=== PATIENT | female | born 1945 | race Caucasian/White ===

== ENCOUNTER 2023-01-17 09:00 | Outpatient (CLI) | payer MEDICARE, OTHER, SELFPAY | END 2023-01-17 09:01 | disposition home or self-care (01) | PROVIDERS: PCP Family Medicine; Visit Provider Nurse Practitioner Family | DX: L03.012 Cellulitis of left finger (principal); R79.89 Other specified abnormal findings of blood chemistry | CPT/HCPCS: 84550 ==

== ENCOUNTER 2023-02-20 11:00 | Outpatient (RCR) | payer MEDICARE, OTHER, SELFPAY ==
--- NOTE | 2023-01-27 15:55 | ONC.NURNOTE ---
Dx: Finger Cellulitis
[2023-01-28 10:21] VITALS: BP 178/79; PULSE 80; RESP 18; TEMP 36.4; O2SAT 90
[2023-01-28] MEDS: cefTRIAXone 2 GM in 0.9 % SODIUM CHLORIDE Mini-bag 100 ML IVPB (10:54)
[2023-01-29 11:05] VITALS: BP 114/70; PULSE 70; RESP 16; TEMP 36; O2SAT 98
[2023-01-29] MEDS: cefTRIAXone 2 GM in 0.9 % SODIUM CHLORIDE Mini-bag 100 ML IVPB (11:23)
[2023-01-29 11:54] LABS: Basophils Absolute Auto 0.01 K/uL (0.00-0.30); Basophils Percent Auto 0.2 % (0.0-3.0); Eosinophils Percent Auto 3.8 % (0.0-7.0); Hematocrit 33.5 % (33.0-51.0); Hemoglobin* 10.6 gm/dL (12.0-16.0); Immature Granulocytes Abs Auto 0.01 K/uL (0.00-0.30); Immature Granulocytes Pct Auto 0.2 %; Lymphocytes Absolute Auto 1.76 K/uL (0.90-2.90); Lymphocytes Percent Auto 33.5 % (20-44); Mean Corpuscular HGB Conc 32 gm/dL (32-36); Mean Corpuscular Hemoglobin 29 pg (26-34); Mean Corpuscular Volume 91 fL (80-100); Monocytes Percent Auto 9.3 % (0.0-11.0); Neutrophils Absolute Auto 2.79 K/uL (1.7-7.0); Platelet Count* 298 K/uL (140-440); RDW Coefficient of Variation % 13.5 % (11.5-15.5); Red Blood Count 3.68 m/uL (4.00-5.20); White Blood Count* 5.26 K/uL (4.50-11.00)
[2023-01-29 11:55] LABS: Slide Review Reflex No
[2023-01-29 12:08] LABS: Creatinine* 0.6 mg/dL (0.5-1.5); Estimated Glomerular Filt Rate 93 ml/min
[2023-01-29 12:09] LABS: Alanine Aminotransferase* 37 U/L (4-35); Alkaline Phosphatase* 352 U/L (40-150)
[2023-01-30 11:04] VITALS: BP 133/69; PULSE 72; RESP 16; TEMP 36.8; O2SAT 99
[2023-01-30] MEDS: 0.9 % SODIUM CHLORIDE 250 ml IV (11:09)
[2023-01-30] MEDS: SODIUM CHLORIDE 0.9 % (FLUSH) 10 ML SYRINGE IVF (11:09)
[2023-01-30] MEDS: cefTRIAXone 2 GM in 0.9 % SODIUM CHLORIDE Mini-bag 100 ML IVPB (11:09)
[2023-01-31 11:03] VITALS: BP 138/70; PULSE 70; RESP 14; TEMP 36.8; O2SAT 100
[2023-01-31] MEDS: SODIUM CHLORIDE 0.9 % (FLUSH) 10 ML SYRINGE IVF (11:13)
[2023-01-31] MEDS: cefTRIAXone 2 GM in 0.9 % SODIUM CHLORIDE Mini-bag 100 ML IVPB (11:13)
[2023-01-31] MEDS: 0.9 % SODIUM CHLORIDE 250 ml IV (11:14)
--- NOTE | 2023-01-31 14:20 | PC.NURSE ---
Pleasant and cooperative, alert and oriented patient was given an antibiotic infusion on med-surg. VSS and pt is afebrile. Pt tolerated infusion without difficulty and discharged to home.
[2023-02-01] MEDS: cefTRIAXone 2 GM in 0.9 % SODIUM CHLORIDE Mini-bag 100 ML IVPB (10:53)
[2023-02-01] MEDS: SODIUM CHLORIDE 0.9 % (FLUSH) 10 ML SYRINGE IVF (10:56)
[2023-02-01 11:01] VITALS: BP 122/63; PULSE 69; RESP 20; TEMP 36.7; O2SAT 97
[2023-02-02 10:59] VITALS: BP 117/64; PULSE 66; RESP 17; TEMP 36.7; O2SAT 96
[2023-02-02] MEDS: cefTRIAXone 2 GM in 0.9 % SODIUM CHLORIDE Mini-bag 100 ML IVPB (11:37)
[2023-02-02] MEDS: 0.9 % SODIUM CHLORIDE 250 ml IV (11:37)
[2023-02-02] MEDS: SODIUM CHLORIDE 0.9 % (FLUSH) 10 ML SYRINGE IVF (11:38)
[2023-02-03 10:42] VITALS: BP 118/63; PULSE 67; RESP 17; TEMP 36.3; O2SAT 98
[2023-02-03] MEDS: cefTRIAXone 2 GM in 0.9 % SODIUM CHLORIDE Mini-bag 100 ML IVPB (11:02)
[2023-02-03] MEDS: SODIUM CHLORIDE 0.9 % (FLUSH) 10 ML SYRINGE IVF (11:41)
[2023-02-04 11:30] VITALS: BP 123/66; PULSE 63; RESP 16; TEMP 36.3; O2SAT 95
[2023-02-04] MEDS: cefTRIAXone 2 GM in 0.9 % SODIUM CHLORIDE Mini-bag 100 ML IVPB (11:37)
[2023-02-04] MEDS: SODIUM CHLORIDE 0.9 % (FLUSH) 10 ML SYRINGE IVF (11:37)
[2023-02-05 10:51] VITALS: BP 124/67; PULSE 68; RESP 16; TEMP 36.4; O2SAT 99
[2023-02-05] MEDS: cefTRIAXone 2 GM in 0.9 % SODIUM CHLORIDE Mini-bag 100 ML IVPB (11:18)
[2023-02-05] MEDS: 0.9 % SODIUM CHLORIDE 250 ml IV (11:19)
[2023-02-05] MEDS: SODIUM CHLORIDE 0.9 % (FLUSH) 10 ML SYRINGE IVF ×2 (11:19→12:10)
[2023-02-05 11:44] LABS: Basophils Percent Auto 0.2 % (0.0-3.0); Eosinophils Percent Auto 3.2 % (0.0-7.0); Hematocrit 32.3 % (33.0-51.0); Hemoglobin* 10.1 gm/dL (12.0-16.0); Lymphocytes Percent Auto 33.6 % (20-44); Mean Corpuscular HGB Conc 31 gm/dL (32-36); Mean Corpuscular Hemoglobin 29 pg (26-34); Mean Corpuscular Volume 91 fL (80-100); Monocytes Percent Auto 8.8 % (0.0-11.0); Neutrophils Percent Auto 54.2 % (42.0-72.0); Platelet Count* 322 K/uL (140-440); RDW Coefficient of Variation % 13.7 % (11.5-15.5); Red Blood Count 3.54 m/uL (4.00-5.20); White Blood Count* 4.44 K/uL (4.50-11.00)
[2023-02-05 11:47] LABS: Slide Review Reflex No
[2023-02-05 12:08] LABS: Creatinine* 0.6 mg/dL (0.5-1.5); Est. Creatinine Clearance* 37.85; Estimated Glomerular Filt Rate 93 ml/min
[2023-02-05 12:09] LABS: Alanine Aminotransferase* 25 U/L (4-35); Phosphorus* 4.1 mg/dL (2.5-4.5)
[2023-02-06 10:39] VITALS: BP 133/65; PULSE 72; RESP 18; TEMP 37; O2SAT 97
[2023-02-06] MEDS: cefTRIAXone 2 GM in 0.9 % SODIUM CHLORIDE Mini-bag 100 ML IVPB (10:59)
[2023-02-06] MEDS: 0.9 % SODIUM CHLORIDE 250 ml IV (11:01)
[2023-02-06 11:40] LABS: Alkaline Phosphatase* 216 U/L (40-150)
[2023-02-07] MEDS: cefTRIAXone 2 GM in 0.9 % SODIUM CHLORIDE Mini-bag 100 ML IVPB (10:54)
[2023-02-07] MEDS: SODIUM CHLORIDE 0.9 % (FLUSH) 10 ML SYRINGE IVF ×2 (10:55→12:29)
[2023-02-07] MEDS: 0.9 % SODIUM CHLORIDE 250 ml IV (10:55)
[2023-02-07 11:32] VITALS: BP 131/78; PULSE 77; RESP 18; TEMP 36.9; O2SAT 97
--- NOTE | 2023-02-07 12:28 | PC.NURSE ---
Patient came to med/surg floor for outpatient antibiotic infusion. VSS stable. PICC to right upper arm had positive blood return and flushed without difficulty. Pt tolerated infusion well.
[2023-02-08 11:05] VITALS: BP 140/70; PULSE 68; RESP 18; TEMP 37; O2SAT 99
[2023-02-08] MEDS: SODIUM CHLORIDE 0.9 % (FLUSH) 10 ML SYRINGE IVF ×2 (11:05→11:35)
[2023-02-08] MEDS: 0.9 % SODIUM CHLORIDE 250 ml IV (11:05)
[2023-02-08] MEDS: cefTRIAXone 2 GM in 0.9 % SODIUM CHLORIDE Mini-bag 100 ML IVPB (11:05)
--- NOTE | 2023-02-08 11:36 | PC.NURSE ---
VS WNL. Infusion completed without difficulty. PICC dressing C,D,&I, line flushes without difficulty.
[2023-02-09 08:46] VITALS: BP 147/75; PULSE 62; RESP 16; TEMP 36.2; O2SAT 98
[2023-02-09] MEDS: cefTRIAXone 2 GM in 0.9 % SODIUM CHLORIDE Mini-bag 100 ML IVPB (08:53)
[2023-02-09] MEDS: 0.9 % SODIUM CHLORIDE 250 ml IV (08:54)
[2023-02-09] MEDS: SODIUM CHLORIDE 0.9 % (FLUSH) 10 ML SYRINGE IVF (08:54)
[2023-02-10 08:00] VITALS: BP 149/52; PULSE 75; RESP 16; TEMP 36.3; O2SAT 98
[2023-02-10] MEDS: cefTRIAXone 2 GM in 0.9 % SODIUM CHLORIDE Mini-bag 100 ML IVPB (08:19)
[2023-02-10] MEDS: 0.9 % SODIUM CHLORIDE 250 ml IV (08:23)
[2023-02-10] MEDS: SODIUM CHLORIDE 0.9 % (FLUSH) 10 ML SYRINGE IVF (08:59)
[2023-02-11] MEDS: 0.9 % SODIUM CHLORIDE 250 ml IV (10:51)
[2023-02-11] MEDS: cefTRIAXone 2 GM in 0.9 % SODIUM CHLORIDE Mini-bag 100 ML IVPB (10:51)
[2023-02-11 11:04] VITALS: BP 152/82; PULSE 66; RESP 16; TEMP 36.9; O2SAT 99
[2023-02-12 10:56] VITALS: BP 152/74; PULSE 65; RESP 16; TEMP 36.5; O2SAT 98
[2023-02-12] MEDS: SODIUM CHLORIDE 0.9 % (FLUSH) 10 ML SYRINGE IVF ×2 (11:20→12:00)
[2023-02-12] MEDS: 0.9 % SODIUM CHLORIDE 250 ml IV (11:25)
[2023-02-12] MEDS: cefTRIAXone 2 GM in 0.9 % SODIUM CHLORIDE Mini-bag 100 ML IVPB (11:30)
[2023-02-12 11:34] LABS: Basophils Percent Auto 0.2 % (0.0-3.0); Eosinophils Percent Auto 4.4 % (0.0-7.0); Hematocrit 34.3 % (33.0-51.0); Hemoglobin* 10.8 gm/dL (12.0-16.0); Lymphocytes Percent Auto 35.4 % (20-44); Mean Corpuscular HGB Conc 32 gm/dL (32-36); Mean Corpuscular Hemoglobin 29 pg (26-34); Mean Corpuscular Volume 92 fL (80-100); Platelet Count* 281 K/uL (140-440); RDW Coefficient of Variation % 14.1 % (11.5-15.5); Red Blood Count 3.74 m/uL (4.00-5.20); White Blood Count* 4.13 K/uL (4.50-11.00)
[2023-02-12 11:40] LABS: Slide Review Reflex No
[2023-02-12 11:53] LABS: Alanine Aminotransferase* 23 U/L (4-35); Alkaline Phosphatase* 165 U/L (40-150); Creatinine* 0.5 mg/dL (0.5-1.5); Est. Creatinine Clearance* 37.85; Estimated Glomerular Filt Rate 97 ml/min
[2023-02-13 11:00] VITALS: BP 143/71; PULSE 70; RESP 16; TEMP 36.3; O2SAT 99
[2023-02-13] MEDS: SODIUM CHLORIDE 0.9 % (FLUSH) 10 ML SYRINGE IVF ×2 (11:12→11:50)
[2023-02-13] MEDS: cefTRIAXone 2 GM in 0.9 % SODIUM CHLORIDE Mini-bag 100 ML IVPB (11:12)
[2023-02-13] MEDS: 0.9 % SODIUM CHLORIDE 250 ml IV (11:12)
[2023-02-14] MEDS: cefTRIAXone 2 GM in 0.9 % SODIUM CHLORIDE Mini-bag 100 ML IVPB (10:49)
[2023-02-14 10:50] VITALS: BP 142/73; PULSE 70; RESP 16; TEMP 36.4; O2SAT 98
[2023-02-14] MEDS: 0.9 % SODIUM CHLORIDE 250 ml IV (10:50)
[2023-02-14] MEDS: SODIUM CHLORIDE 0.9 % (FLUSH) 10 ML SYRINGE IVF (10:50)
[2023-02-15 10:45] VITALS: BP 130/74; PULSE 68; RESP 18; TEMP 36.1; O2SAT 98
[2023-02-15] MEDS: cefTRIAXone 2 GM in 0.9 % SODIUM CHLORIDE Mini-bag 100 ML IVPB (10:50)
[2023-02-15] MEDS: SODIUM CHLORIDE 0.9 % (FLUSH) 10 ML SYRINGE IVF (10:51)
[2023-02-15] MEDS: 0.9 % SODIUM CHLORIDE 250 ml IV (10:51)
[2023-02-16] MEDS: cefTRIAXone 2 GM in 0.9 % SODIUM CHLORIDE Mini-bag 100 ML IVPB (13:40)
[2023-02-16] MEDS: 0.9 % SODIUM CHLORIDE 250 ml IV (13:41)
[2023-02-16] MEDS: SODIUM CHLORIDE 0.9 % (FLUSH) 10 ML SYRINGE IVF (13:41)
[2023-02-16 13:56] VITALS: BP 118/59; PULSE 68; RESP 16; TEMP 36.4; O2SAT 98
[2023-02-17 10:49] VITALS: BP 138/70; PULSE 69; RESP 16; TEMP 36.6; O2SAT 99
[2023-02-17] MEDS: SODIUM CHLORIDE 0.9 % (FLUSH) 10 ML SYRINGE IVF (11:04)
[2023-02-17] MEDS: 0.9 % SODIUM CHLORIDE 250 ml IV ×2 (11:04→11:45)
[2023-02-17] MEDS: cefTRIAXone 2 GM in 0.9 % SODIUM CHLORIDE Mini-bag 100 ML IVPB (11:04)
[2023-02-18 11:06] VITALS: BP 164/78; PULSE 67; RESP 16; TEMP 36.1; O2SAT 94
[2023-02-18] MEDS: SODIUM CHLORIDE 0.9 % (FLUSH) 10 ML SYRINGE IVF (11:27)
[2023-02-18] MEDS: 0.9 % SODIUM CHLORIDE 250 ml IV (11:27)
[2023-02-18] MEDS: cefTRIAXone 2 GM in 0.9 % SODIUM CHLORIDE Mini-bag 100 ML IVPB (11:27)
[2023-02-19 08:45] VITALS: BP 144/76; PULSE 68; RESP 18; TEMP 36.5; O2SAT 99
[2023-02-19] MEDS: cefTRIAXone 2 GM in 0.9 % SODIUM CHLORIDE Mini-bag 100 ML IVPB (08:51)
[2023-02-19 09:39] VITALS: BP 142/79; PULSE 63; RESP 18; TEMP 36.4; O2SAT 99
--- NOTE | 2023-02-19 09:42 | PC.NURSE ---
shift note: vss stable. pt afeb. pt tolerated infusion w/o s/e. PICC line intact. drsg c/d/i
[2023-02-20 11:32] LABS: Eosinophils Absolute Auto 0.26 K/uL (0.00-0.50); Eosinophils Percent Auto 5.2 % (0.0-7.0); Hematocrit 35.1 % (33.0-51.0); Hemoglobin* 11.1 gm/dL (12.0-16.0); Lymphocytes Absolute Auto 1.51 K/uL (0.90-2.90); Lymphocytes Percent Auto 30.4 % (20-44); Mean Corpuscular HGB Conc 32 gm/dL (32-36); Mean Corpuscular Hemoglobin 29 pg (26-34); Mean Corpuscular Volume 92 fL (80-100); Monocytes Percent Auto 6.6 % (0.0-11.0); Neutrophils Absolute Auto 2.87 K/uL (1.7-7.0); Neutrophils Percent Auto 57.8 % (42.0-72.0); Platelet Count* 226 K/uL (140-440); RDW Coefficient of Variation % 14.5 % (11.5-15.5); White Blood Count* 4.97 K/uL (4.50-11.00)
[2023-02-20 11:34] LABS: Slide Review Reflex No
[2023-02-20 11:51] LABS: Alanine Aminotransferase* 37 U/L (4-35); Alkaline Phosphatase* 167 U/L (40-150); Creatinine* 0.7 mg/dL (0.5-1.5); Est. Creatinine Clearance* 37.85; Estimated Glomerular Filt Rate 90 ml/min
== END 2023-07-27 23:59 | disposition home or self-care (01) ==
LOC: CCIC 11:00
PROVIDERS: PCP Family Medicine; Referring Provider Family Medicine; Visit Provider Clinical Nurse Specialist
DX: L03.012 Cellulitis of left finger (principal)
CPT/HCPCS: 36415; 36589; 36592; 82565; 84075; 84100; 84460; 85025; 96365; 96374; 96376; 99211; A4221; J0696; J7050

== ENCOUNTER 2023-03-16 16:41 | Emergency (ER) | payer MEDICARE, OTHER, SELFPAY ==
[2023-03-16] VITALS (21 sets, daily range): BP systolic 157–178; BP diastolic 75–115; PULSE 68–85; RESP 14; TEMP 37; O2SAT 90–99; BMI 27.6
--- NOTE | 2023-03-16 17:01 | ED_ITS ---
HPI - General Adult General Time Seen by Provider: 17:01 Date Seen: 03/16/23 Chief complaint: Nausea/Vomiting Stated complaint: fall-hit head 03/15 Time Seen by Provider: 03/16/23 16:51 Source: patient, RN notes reviewed and other (Dr. Whittaker called from [facility] where he did see the patient) Mode of arrival: ambulatory Limitations: no limitations History of Present Illness HPI narrative: This 75-year-old female was referred from [facility] by Dr. Whittaker for ongoing vomiting in the setting of a fall and head injury yesterday. Patient got up at 5:00 a.m. yesterday, when out to check to see if the Thursday paper was there, admits she did not turn the lights on as she thought she would be fine without them. She missed the 2 steps, did fall down. She scraped the back of her right upper shoulder area, hit the back of her right head. She did go to [place], she had a negative head CT, negative chest abdomen pelvis with IV contrast, also had spinal CT imaging which was reportedly negative. Her potassium was mildly low at 3.1 yesterday. She is not on any anticoagulation. She had significant difficulty with control of vomiting yesterday. The vomiting and nausea it did absolutely start after the head injury. They had difficulty getting control of this, did use IV Zofran, IV droperidol, IV Benadryl and Reglan and in the ER at [place] yesterday. It is reported that she seemed to have better symptom relief with Reglan in the ER. She actually was discharge mid afternoon. She was feeling fine until about 2:00 a.m. today, did get out of bed and then felt poorly. She notes that the nausea and vomiting largely comes on with movement. She is still exhibiting and a right posterior headache. Dr. Whittaker thought she perhaps should come back in to have another head CT to rule out a late brain bleed like a subdural. She also has a history of recurrent small-bowel obstructions, she does not feel like this is anything like that. Denies any abdominal pain. She did have some oral Zofran which she took earlier today, did help some but movement really does exacerbate her symptoms. The thought is that she had concussion. Patient has a past medical history of hypertension, GERD, hyperlipidemia and recurrent small-bowel obstruction. 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 Related Data Home Medications Medication Instructions Recorded Confirmed amlodipine 5 mg tablet 5 mg PO DAILY 03/10/22 02/02/23 omeprazole 20 mg capsule,delayed 20 mg PO DAILY 03/10/22 02/02/23 release potassium chloride 20 mEq 20 meq PO DAILY 03/10/22 02/02/23 tablet,extended release(part/cryst) propranolol 120 mg capsule,24 120 mg PO BID 03/10/22 02/02/23 hr,extended release rosuvastatin 40 mg tablet 40 mg PO DAILY 03/10/22 02/02/23 triamterene 37.5 1 cap PO DAILY 03/10/22 02/02/23 mg-hydrochlorothiazide 25 mg capsule Previous Rx's Medication Instructions Recorded metoclopramide HCl 10 mg tablet 10 mg PO Q8-12H PRN nausea and 03/16/23 (Reglan) vomiting #20 tabs Allergies Allergy/AdvReac Type Severity Reaction Status Date / Time lisinopril Allergy Mild Cough Verified 02/17/23 10:56 Review of Systems Status of ROS: Reports: 6 or more systems reviewed and unremarkable except as noted in History and below [facility] Medical History (Updated 03/16/23 @ 19:37 by Nataliia Guevara MD) Small bowel obstruction ?K56.609 - Unspecified intestinal obstruction, unspecified as to partial versus complete obstruction (ICD-10) Hyperlipidemia ?E78.5 - Hyperlipidemia, unspecified (ICD-10) GERD (gastroesophageal reflux disease) ?K21.9 - Gastro-esophageal reflux disease without esophagitis (ICD-10) Hypertension ?I10 - Essential (primary) hypertension (ICD-10) Social History Smoking Status: Never smoker Do you use any of these nicotine containing products: None How often do you have a drink containing alcohol: monthly or less How often do you have six or more drinks on one occasion: Never AUDIT-C Alcohol total score: 1 Non-prescribed substance use: denies use Exam Const: Vital Signs, click to edit/add: Vital Signs - 24 hr 03/16/23 16:48 03/16/23 16:52 03/16/23 16:53 Temperature 98.6 F Pulse Rate 76 78 Pulse Rate [Pulse Oximeter] 79 Respiratory Rate 14 Blood Pressure 157/115 H Blood Pressure [Ri ght Upper Arm] 157/115 H Pulse Oximetry 95 98 97 Oxygen Delivery Me thod Room Air 03/16/23 17:00 03/16/23 17:08 03/16/23 17:15 Temperature Pulse Rate 72 69 Pulse Rate [Pulse Oximeter] Respiratory Rate Blood Pressure Blood Pressure [Ri ght Upper Arm] Pulse Oximetry 98 98 97 Oxygen Delivery Me thod 03/16/23 17:39 03/16/23 17:45 03/16/23 17:50 Temperature Pulse Rate 71 70 70 Pulse Rate [Pulse Oximeter] Respiratory Rate Blood Pressure 172/76 H Blood Pressure [Ri ght Upper Arm] Pulse Oximetry 99 98 98 Oxygen Delivery Me thod 03/16/23 18:01 03/16/23 18:02 03/16/23 18:15 Temperature Pulse Rate 70 70 70 Pulse Rate [Pulse Oximeter] Respiratory Rate Blood Pressure 172/79 H Blood Pressure [Ri ght Upper Arm] Pulse Oximetry 96 93 90 Oxygen Delivery Me thod 03/16/23 18:30 03/16/23 18:31 03/16/23 18:45 Temperature Pulse Rate 85 77 75 Pulse Rate [Pulse Oximeter] Respiratory Rate Blood Pressure 172/85 H Blood Pressure [Ri ght Upper Arm] Pulse Oximetry 97 96 96 Oxygen Delivery Me thod 03/16/23 19:00 Temperature Pulse Rate 70 Pulse Rate [Pulse Oximeter] Respiratory Rate Blood Pressure Blood Pressure [Ri ght Upper Arm] Pulse Oximetry 97 Oxygen Delivery Me thod Patient is a 77-year-old female that is seen in stab 2 bed. She is alert, interactive, no apparent distress, hanging onto an emesis bag. Pupils equal round reactive to light extraocular muscles intact. No drainage from nares or ears. Symmetrical facial function, speech is normal. Her neck is supple, no visible traumatic change, no palpable masses. She has a right occipital hematoma, no open wound. Mild erythema over the scapular area on her right back. Lungs are clear, good air entry, no wheezing or crackles. CV regular rate and rhythm, no murmur, normal S1-S2, no S3 or S4. Abdomen is soft, nondistended, nontender, no organomegaly, no rebound or guarding, bowel sounds sound normal. She has no lower extremity edema. Moving extremities equally, no focal neurologic deficit noted. Documenting provider has reviewed patient's vital signs: yes Course Course ED Course: Given the wonderful pre arrival report by her primary care provider, was able to alert nursing staff. They did place an IV, draw blood. We will initiate IV fluids and Benadryl and Reglan. Was able to review with the patient her EKG changes. She states that no one has told her that she has had an abnormal EKG. She certainly not having chest pain. By her history, the nausea and vomiting started after the fall. We will insure that she has a normal troponin. The nausea and vomiting have been there since yesterday. It did improve with the medication she received in [place] yesterday. She did have some mild impr ovement with oral Zofran at home but with any significant movement, does feel the nausea vomiting. She still has the right occipital headache. She and I discussed that we will certainly use some medication for pain management, can consider some Toradol if her repeat head CT is still showing no evidence of any late brain bleed, kidney functions are good. If we get her nausea under control, can try some acetaminophen. If her troponin is normal, she can follow up the EKG outpatient. There is the possibility that she could be having some ventricular thickening with her hypertension that could explain some of the EKG changes. However, if troponin is elevated, will need to talk to Cardiology. Reevaluation(s) Time of Reevaluation #1: 19:30 Reevaluation #1: Patient was just up to the bathroom, did have more nausea with movement. Did feel like she wanted the wheelchair. Discussed with her that I recommended hospitalization with observation to try to work on a regimen that would help control her symptoms. It appears that this is post concussive vomiting. She really wants to try to go home. We will try a dose of IV Zofran here now, she has further Zofran at home. I will send a prescription for Reglan in for them. We did discuss the EKG findings, her troponin is negative and she is asymptomatic. She will need outpatient follow-up in clinic, ED evaluation if she ever has any chest pain in the interim. She will likely need an echo and possible consideration of stress testing. We did review the negative abdominal imaging for obstruction, she states she really does not feel any of the symptoms outside of the vomiting that go with her abdominal instructions so she is not surprised. Her head CT showing no evidence of any bleed. Vital Signs Vital signs: Initial Vital Signs Temperature 98.6 F 03/16/23 16:48 Temperature Source Temporal Artery Scan 03/16/23 16:48 Pulse Rate 79 03/16/23 16:48 Pulse Rhythm Regular 03/16/23 16:48 Respiratory Rate 14 03/16/23 16:48 Blood Pressure 157/115 H 03/16/23 16:48 Blood Pressure Mean 129 H 03/16/23 16:48 Blood Pressure Position Left Lateral 03/16/23 16:48 Pulse Oximetry 95 03/16/23 16:48 Oxygen Delivery Method Room Air 03/16/23 16:48 Vital Signs Temperature 98.6 F 03/16/23 16:48 Pulse Rate 79 03/16/23 16:48 Respiratory Rate 14 03/16/23 16:48 Blood Pressure 157/115 H 03/16/23 16:48 Pulse Oximetry 95 03/16/23 16:48 Oxygen Delivery Method Room Air 03/16/23 16:48 Temperature 98.6 F 03/16/23 16:48 Pulse Rate 70 03/16/23 19:00 Respiratory Rate 14 03/16/23 16:48 Blood Pressure 172/85 H 03/16/23 18:31 Pulse Oximetry 97 03/16/23 19:00 Oxygen Delivery Method Room Air 03/16/23 16:48 Medications Administered Medications: Discontinued Medications Generic Name Dose Route Start Last Admin Trade Name Freq PRN Reason Stop Dose Admin Diphenhydramine HCl 25 mg 03/16/23 17:16 03/16/23 17:42 Diphenhydramine 50 Mg/Ml Inj IVP 03/16/23 17:17 25 mg ONCE ONE Administration Sodium Chloride 1,000 mls @ 500 mls/hr 03/16/23 17:16 03/16/23 17:40 0.9 % Sodium Chloride 1000 Ml IV 03/16/23 19:15 500 mls/hr .Q2H NINA Administration Metoclopramide HCl 10 mg 03/16/23 17:16 03/16/23 17:42 Metoclopramide Hcl 5 Mg/Ml Inj IVP 03/16/23 17:17 10 mg ONCE ONE Administration Medical Decision Making Lab Data Lab results reviewed: Yes I reviewed the patient's lab results Labs: Lab Results 03/16/23 Range/Units 17:00 WBC 5.09 (4.50-11.00) K/uL RBC 3.99 L (4.00-5.20) m/uL Hgb 11.5 L (12.0-16.0) gm/dL Hct 36.6 (33.0-51.0) % MCV 92 (80-100) fL MCH 29 (26-34) pg MCHC 31 L (32-36) gm/dL RDW Coeff of Jose Miguel 15.5 (11.5-15.5) % Plt Count 258 (140-440) K/uL Neut % (Auto) 61.3 (42.0-72.0) % Lymph % (Auto) 28.1 (20-44) % [place] % (Auto) 8.4 (0.0-11.0) % Eos % (Auto) 1.8 (0.0-7.0) % Baso % (Auto) 0.2 (0.0-3.0) % Neut # (Auto) 3.12 (1.7-7.0) K/uL Lymph # (Auto) 1.43 (0.90-2.90) K/uL [place] # (Auto) 0.40 (0.00-0.90) K/UL Eos # (Auto) 0.09 (0.00-0.50) K/uL Baso # (Auto) 0.01 (0.00-0.30) K/uL Abs Immat Gran (auto) 0.01 (0.00-0.30) K/uL Imm/Tot Granulo (auto) 0.2 % Sodium 136 (135-149) mmol/L Potassium 3.9 (3.6-5.1) mmol/L Chloride 98 (96-114) mmol/L Carbon Dioxide 28 (20-32) mmol/L Anion Gap 10 (7-15) mEq/L BUN 8 (7-30) mg/dL Creatinine 0.4 L (0.5-1.5) mg/dL Estimated Creat Clear 39.59 Estimated GFR 103 ml/min Glucose 109 (60-115) mg/dL Lactate 1.5 (0.5-1.9) mmol/L Calcium 9.7 (8.4-10.6) mg/dL Magnesium 1.8 (1.5-2.6) mg/dL Total Bilirubin 1.2 (0.1-1.5) mg/dL AST 38 H (12-35) U/L ALT 24 (4-35) U/L Alkaline Phosphatase 171 H (40-150) U/L Troponin I 0.02 (0.01-0.04) ng/mL C-Reactive Protein 1.2 H (0.5-1.0) mg/dL Total Protein 8.1 (6.0-8.3) g/dL Albumin 4.9 (3.3-5.0) g/dL Imaging Data CT scan - head: Attestation: I have reviewed the pertinent imaging results. Radiologist's impression: Patient: [facility] Facility:?[facility] Patient ID:?[id number] Site Patient ID:?[id number]. Site :?[id number] Study:?CT Head WITHOUT-03/16/2023 5:54:03 PM Ordering Physician:Med William Final Report: INDICATION: Headache. Trauma. TECHNIQUE: Non-contrast CT of the head is submitted. No comparisons. FINDINGS: The ventricles, sulci and gyri are of normal size, shape and contour. Midline structures are centrally located. No convincing evidence of intra- or extra-axial fluid collections. Mild soft tissue swelling overlying the right lateral calvarium compatible with a scalp hematoma. IMPRESSION: 1. No radiographic evidence of acute intracranial abnormalities. 2. Small scalp hematoma overlying the right lateral calvarium. Dictated by Sandeep Mccurdy MD @ 03/16/2023 6:03:03 PM Please note that all CT scans at this facility use dose modulation, iterative reconstruction, and/or weight-based dosing when appropriate to reduce radiation dose to as low as reasonably achievable. Dictated by: Sandeep Mccurdy MD @ 03/16/2023 18:03:09 (Electronic Signature) Abdominal x-ray: Attestation: I have reviewed the pertinent imaging results. Radiologist's impression: Patient: [facility] Facility:[facility] Patient ID:?[id number] Site Patient ID:?[id number]. Site :?[id number] Study:?XRay Abdomen/Pelvis F/U ABD-03/16/2023 5:40:28 PM Ordering Physician:Med William Final Report: INDICATION: History of small-bowel obstruction. TECHNIQUE: Single-view of the abdomen and pelvis. COMPARISON: February 26, 2021. FINDINGS: Air-fluid level within the stomach. Scattered gas and stool throughout portions of the colon and rectum. Colonic loop interposed between left hemidiaphragm and the stomach as well as the spleen. There is no evidence for small or large bowel obstruction on these images. Postsurgical change right upper quadrant. Granulomatous changes at the left lung base and within the spleen. Marked rotatory lumbar scoliotic curvature predominate convex towards the left within the mid lumbar spine with multilevel degenerative disc disease. IMPRESSION: No plain radiographic evidence for acute small or large bowel obstruction or ileus. Dictated by Marcel Houston MD @ 03/16/2023 6:05:44 PM (Electronic Signature) ECG Data Attestation: I personally reviewed and interpreted this ECG as follows: (Normal sinus rhythm, 72 beats per minute. She does have inferior and lateral ST segment changes, downsloping depression. No voltage criteria for LVH noted but patient does notably have hypertension. T-waves are still upright. QT corrected is 429 milliseconds.) Prior ECG tracings: not available for review Critical Care Time Critical Care Time Critical Care Time: No Discharge Plan Discharge Clinical Impression: Concussion, Vomiting Patient Disposition: Home, Self-Care Condition: Stable Instructions: Concussion (ED) Additional Instructions: You are unfortunately likely vomiting from post concussive symptoms. If you cannot control your symptoms at home after discharge today, do need to consider return and potential hospitalization. Hopefully, with the anti nausea medicines and rest, you will start to improve. Do recommend resting until movement is not inducing any symptoms for you. Recommend Tylenol baseline for pain control or headache, follow bottle directions for dosing. The EKG showing some changes but your troponin was normal and you are otherwise not having any symptoms tonight. Do recommend that you talk to Dr. Whittaker about having an echo done to look at the underlying architecture of the heart. Stress testing could be considered as well. If at any time you do develop any chest pain or symptoms that are concerning of a heart attack, do need to be evaluated emergently. Activity Level: Activity as Tolerated Prescriptions: New metoclopramide HCl [Reglan] 10 mg tablet 10 mg PO Q8-12H PRN (Reason: nausea and vomiting) Qty: 20 0RF No Action rosuvastatin 40 mg tablet 40 mg PO DAILY triamterene-hydrochlorothiazid 37.5-25 mg capsule 1 cap PO DAILY propranolol 120 mg capsule,extended release 24 hr 120 mg PO BID potassium chloride 20 mEq tablet,ER particles/crystals 20 meq PO DAILY amlodipine 5 mg tablet 5 mg PO DAILY omeprazole 20 mg capsule,delayed release(DR/EC) 20 mg PO DAILY Follow Up/Referrals: Vishnu Whittaker MD [Primary Care Provider] - Stand Alone Forms: [email or web address] Info Instructions
--- NOTE | 2023-03-16 17:14 | CRLHL7_ITS ---
For Patients: As a result of the Century Cures Act, medical imaging exams and procedure reports are released immediately into your electronic medical record. You may view this report before your referring provider. If you have questions, please contact your health care provider. INDICATION: Headache. Trauma. TECHNIQUE: Non-contrast CT of the head is submitted. No comparisons. FINDINGS: The ventricles, sulci and gyri are of normal size, shape and contour. Midline structures are centrally located. No convincing evidence of intra- or extra-axial fluid collections. Mild soft tissue swelling overlying the right lateral calvarium compatible with a scalp hematoma. IMPRESSION: 1. No radiographic evidence of acute intracranial abnormalities. 2. Small scalp hematoma overlying the right lateral calvarium. Dictated by Sandeep Mccurdy MD @ 03/16/2023 6:03:03 PM Please note that all CT scans at this facility use dose modulation, iterative reconstruction, and/or weight-based dosing when appropriate to reduce radiation dose to as low as reasonably achievable. Dictated by: Sandeep Mccurdy MD @ 03/16/2023 18:03:09 (Electronically Signed)
--- NOTE | 2023-03-16 17:14 | CRLHL7_ITS ---
For Patients: As a result of the Century Cures Act, medical imaging exams and procedure reports are released immediately into your electronic medical record. You may view this report before your referring provider. If you have questions, please contact your health care provider. INDICATION: History of small-bowel obstruction. TECHNIQUE: Single-view of the abdomen and pelvis. COMPARISON: February 26, 2021. FINDINGS: Air-fluid level within the stomach. Scattered gas and stool throughout portions of the colon and rectum. Colonic loop interposed between left hemidiaphragm and the stomach as well as the spleen. There is no evidence for small or large bowel obstruction on these images. Postsurgical change right upper quadrant. Granulomatous changes at the left lung base and within the spleen. Marked rotatory lumbar scoliotic curvature predominate convex towards the left within the mid lumbar spine with multilevel degenerative disc disease. IMPRESSION: No plain radiographic evidence for acute small or large bowel obstruction or ileus. Dictated by Marcel Houston MD @ 03/16/2023 6:05:44 PM (Electronically Signed)
[2023-03-16 17:29] LABS: Lactate* 1.5 mmol/L (0.5-1.9)
[2023-03-16 17:39] LABS: Basophils Absolute Auto 0.01 K/uL (0.00-0.30); Basophils Percent Auto 0.2 % (0.0-3.0); Eosinophils Absolute Auto 0.09 K/uL (0.00-0.50); Eosinophils Percent Auto 1.8 % (0.0-7.0); Hematocrit 36.6 % (33.0-51.0); Hemoglobin* 11.5 gm/dL (12.0-16.0); Immature Granulocytes Abs Auto 0.01 K/uL (0.00-0.30); Immature Granulocytes Pct Auto 0.2 %; Lymphocytes Absolute Auto 1.43 K/uL (0.90-2.90); Lymphocytes Percent Auto 28.1 % (20-44); Mean Corpuscular HGB Conc 31 gm/dL (32-36); Mean Corpuscular Hemoglobin 29 pg (26-34); Mean Corpuscular Volume 92 fL (80-100); Monocytes Percent Auto 8.4 % (0.0-11.0); Neutrophils Absolute Auto 3.12 K/uL (1.7-7.0); Neutrophils Percent Auto 61.3 % (42.0-72.0); Platelet Count* 258 K/uL (140-440); RDW Coefficient of Variation % 15.5 % (11.5-15.5); Red Blood Count 3.99 m/uL (4.00-5.20); White Blood Count* 5.09 K/uL (4.50-11.00)
[2023-03-16] MEDS: 0.9 % SODIUM CHLORIDE 1000 ml 1,000 ML 500 ML IV (17:40)
[2023-03-16 17:41] LABS: Slide Review Reflex No
[2023-03-16] MEDS: METOCLOPRAMIDE HCL 5 MG/ML INJ 10 MG IVP (17:42)
[2023-03-16] MEDS: diphenhydrAMINE 50 MG/ML inj 25 MG IVP (17:42)
[2023-03-16 17:59] LABS: Albumin* 4.9 g/dL (3.3-5.0); Chloride* 98 mmol/L (96-114); Potassium* 3.9 mmol/L (3.6-5.1); Sodium* 136 mmol/L (135-149)
[2023-03-16 18:01] LABS: Creatinine* 0.4 mg/dL (0.5-1.5); Est. Creatinine Clearance* 39.59; Estimated Glomerular Filt Rate 103 ml/min
[2023-03-16 18:02] LABS: Alkaline Phosphatase* 171 U/L (40-150); Anion Gap 10 mEq/L (7-15); Aspartate Amino Transferase* 38 U/L (12-35); Bilirubin Total* 1.2 mg/dL (0.1-1.5); Blood Urea Nitrogen* 8 mg/dL (7-30); Carbon Dioxide* 28 mmol/L (20-32); Glucose* 109 mg/dL (60-115); Total Protein* 8.1 g/dL (6.0-8.3)
[2023-03-16 18:03] LABS: Alanine Aminotransferase* 24 U/L (4-35); Calcium* 9.7 mg/dL (8.4-10.6); Magnesium* 1.8 mg/dL (1.5-2.6)
[2023-03-16 18:05] LABS: C Reactive Protein* 1.2 mg/dL (0.5-1.0)
[2023-03-16 18:14] LABS: Troponin I* 0.02 ng/mL (0.01-0.04)
[2023-03-16] MEDS: ONDANSETRON 2 MG/ML inj 4 MG IVP (19:37)
== END 2023-03-16 19:57 | disposition home or self-care (01) ==
PROVIDERS: Emergency Provider Family Medicine; PCP Family Medicine
DX: S06.0X0A Concussion without loss of consciousness, initial encounter (principal); R11.10 Vomiting, unspecified; W10.9XXA Fall (on) (from) unspecified stairs and steps, initial encounter
CPT/HCPCS: 36415; 70450; 74019; 80053; 83605; 83735; 84484; 85025; 86140; 94761; 95992; 96374; 96375; 99284; 99285; J1200; J2405; J2765; J7030

== ENCOUNTER 2023-03-25 04:51 | Inpatient (IN) | payer MEDICARE, OTHER, SELFPAY ==
[2023-03-25] VITALS (8 sets, daily range): BP systolic 147–183; BP diastolic 73–104; PULSE 63–71; RESP 16–24; TEMP 36.5–36.8; O2SAT 96–100; BMI 26.6; BMI 27.0
--- NOTE | 2023-03-25 05:28 | CRLHL7_ITS ---
For Patients: As a result of the Century Cures Act, medical imaging exams and procedure reports are released immediately into your electronic medical record. You may view this report before your referring provider. If you have questions, please contact your health care provider. Indication : History of bowel obstruction Technique: Plain-film examination abdomen was performed. Two images were obtained and then a repeat image was obtained after nasogastric tube placement Comparison: May 17, 2022 Findings: Nasogastric tube ends in the stomach. Extensive degenerative changes of the spine and scoliosis. Postsurgical changes in the right upper quadrant no plain film findings of ileus or obstruction. No definite free air Impression: Nasogastric tube ends in the stomach. No plain-film evidence of ileus or obstruction. No definite free air Dictated by Bruno Brooks MD @ 03/25/2023 7:36:45 AM (Electronically Signed)
--- NOTE | 2023-03-25 05:35 | ED_ITS ---
HPI - General Adult General Chief complaint: Nausea/Vomiting Stated complaint: Vomiting, Upper right abdomen pain Time Seen by Provider: 03/25/23 04:56 Source: patient and family Mode of arrival: ambulatory Limitations: no limitations History of Present Illness HPI narrative: 77-year-old female presents to the ED with a 1 hour history of sudden onset of severe nausea vomiting and weakness. Symptoms feel consistent with prior small bowel obstructions. She believes this is her 4th obstruction. No trauma or injury, had been feeling well. 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 Reports pain in the right upper quadrant area, this is typically where she has her transition point. She has required NG tube placement in the past in is very agreeable when I bring this up. Has never required surgical intervention to correct a bowel obstruction. She does have a history of several prior abdominal surgeries including hysterectomy, laparoscopic cholecystectomy and laparoscopic oophorectomies. Last bowel movement was yesterday, normal. No recent blood in her stools. She has had several bouts of emesis and woke up severely nauseated this morning. No hematemesis. No difficulty breathing, no chest pain, no rashes. No fevers or recent other body illness. No recent changes in her medications or other acute complaints today. Past medical history notable for hypertension hyperlipidemia. She also has diet-controlled diabetes. Home meds amlodipine, omeprazole, propranolol, rosuvastatin and Dyazide. Nonsmoker. No recent pertinent travel. Surgical history noted as above, multiple prior abdominal surgeries. ROS notable for the generalized and GI symptoms as above, otherwise denies times 12 systems. Related Data Home Medications Medication Instructions Recorded Confirmed amlodipine 5 mg tablet 5 mg PO DAILY 03/10/22 02/02/23 omeprazole 20 mg capsule,delayed 20 mg PO DAILY 03/10/22 02/02/23 release potassium chloride 20 mEq 20 meq PO DAILY 03/10/22 02/02/23 tablet,extended release(part/cryst) propranolol 120 mg capsule,24 120 mg PO BID 03/10/22 02/02/23 hr,extended release rosuvastatin 40 mg tablet 40 mg PO DAILY 03/10/22 02/02/23 triamterene 37.5 1 cap PO DAILY 03/10/22 02/02/23 mg-hydrochlorothiazide 25 mg capsule Previous Rx's Medication Instructions Recorded metoclopramide HCl 10 mg tablet 10 mg PO Q8-12H PRN nausea and 03/16/23 (Reglan) vomiting #20 tabs Allergies Allergy/AdvReac Type Severity Reaction Status Date / Time lisinopril Allergy Mild Cough Verified 02/17/23 10:56 PFSH PFS Medical History (Updated 03/25/23 @ 07:26 by Indira Jesus MD) Small bowel obstruction ?K56.609 - Unspecified intestinal obstruction, unspecified as to partial versus complete obstruction (ICD-10) Hyperlipidemia ?E78.5 - Hyperlipidemia, unspecified (ICD-10) GERD (gastroesophageal reflux disease) ?K21.9 - Gastro-esophageal reflux disease without esophagitis (ICD-10) Hypertension ?I10 - Essential (primary) hypertension (ICD-10) Social History Smoking Status: Never smoker Do you use any of these nicotine containing products: None How often do you have a drink containing alcohol: monthly or less How often do you have six or more drinks on one occasion: Never AUDIT-C Alcohol total score: 1 Non-prescribed substance use: denies use service: No Exam Const: Vital Signs, click to edit/add: Vital Signs - 24 hr 03/25/23 05:06 Temperature 97.7 F Pulse Rate [Right Pulse Oximeter] 63 Respiratory Rate 24 Blood Pressure [Ri ght Upper Arm] 177/104 H Pulse Oximetry 99 Oxygen Delivery Me thod Room Air Documenting provider has reviewed patient's vital signs: yes Common normals: alert Orientation/consciousness: Yes awake Other: Mild distress due to persistent vomiting but she tries very hard to mask it an act as professionally as possible. Well nourished, well hydrated. Fully alert HENMT: Common normals: normocephalic Head and scalp: normocephalic Face and sinus: normal facial exam Mouth: oral and palatal mucosa normal Throat: posterior oropharynx normal Eye: Common normals: conjunctivae normal General eye: normal appearance of both eyes Conjunctiva: conjunctiva(e) normal Neck & C-Spine: Common normals: full ROM and no lymphadenopathy Resp: Common normals: normal respiratory effort, no use of accessory muscles and clear to auscultation bilaterally Effort & inspection: able to speak in complete sentences Auscultation: clear to auscultation bilaterally Cardio: Common normals: regular rate, regular rhythm, S1 normal heart sound, S2 normal heart sound and no murmurs Rate: regular rate Rhythm: regular rhythm Heart sounds: S1 normal and S2 normal GI: Other: Mildly distended abdomen with hyperactive bowel sounds. Mild tenderness in the right upper quadrant with no rebound tenderness or guarding. Surgical scarring consistent with known history. No organomegaly or mass Neuro: Common normals: moves all extremities and no focal motor deficits Sensorium/orientation: awake and alert Speech: speech normal Psych: Attitude: engaged Mood and affect: euthymic mood Insight: insight good Judgement: judgment good Skin: Common normals: no rashes or lesions noted General skin exam: no rashes or lesions noted Course Course ED Course: Abdominal pain with sudden onset vomiting in the setting of prior very similar small bowel obstructions. No injury or trauma or blood to suggest alternative pathology. Counseled patient based on physical exam findings that this is likely another small-bowel obstruction, she is in agreement. We will place an IV, obtain typical labs to look for alternative etiologies, electrolyte abnormalities, dehydration, etc.. Will give 0.5 mg of Dilaudid, 4 mg of Zofran and 1 L normal saline. Will place NG tube. Discussed with patient that I do not think we need to do a CT scan unless she is failing to respond to appropriate treatment. She was agreeable to this. Await labs and if these suggest alternative pathology, will reconsider. Will perform abdominal x-ray following placement of NG tube. Anticipate hospitalization. Reevaluation(s) Reevaluation #1: Imaging evaluated, NG tube appears in proper placement. There is really only 1 loop of small bowel that seems dilated, not certainly not a severe small-bowel obstruction. She is having some clinical improvement after the placement of the NG tube. I recommended observation, if the NG output slows down consideration of removal. If symptoms persist, would recommend proceeding with CT scan. I spoke with Dr. Kim. He is considering surgical consult and proceeding with CT, he says that he will evaluate the patient and decide if necessary. Accepted for admission. Vital Signs Vital signs: Initial Vital Signs Temperature 97.7 F 03/25/23 05:06 Temperature Source Temporal Artery Scan 03/25/23 05:06 Pulse Rate 63 03/25/23 05:06 Respiratory Rate 24 03/25/23 05:06 Blood Pressure 177/104 H 03/25/23 05:06 Blood Pressure Mean 128 H 03/25/23 05:06 Blood Pressure Position Semi-Fowlers 03/25/23 05:06 Pulse Oximetry 99 03/25/23 05:06 Oxygen Delivery Method Room Air 03/25/23 05:06 Vital Signs Temperature 97.7 F 03/25/23 05:06 Pulse Rate 63 03/25/23 05:06 Respiratory Rate 24 03/25/23 05:06 Blood Pressure 177/104 H 03/25/23 05:06 Pulse Oximetry 99 03/25/23 05:06 Oxygen Delivery Method Room Air 03/25/23 05:06 Temperature 97.7 F 03/25/23 05:06 Pulse Rate 63 03/25/23 05:06 Respiratory Rate 24 03/25/23 05:06 Blood Pressure 177/104 H 03/25/23 05:06 Pulse Oximetry 99 03/25/23 05:06 Oxygen Delivery Method Room Air 03/25/23 05:06 Medications Administered Medications: Discontinued Medications Generic Name Dose Route Start Last Admin Trade Name Freq PRN Reason Stop Dose Admin Hydromorphone HCl 0.5 mg 03/25/23 05:28 03/25/23 05:47 Hydromorphone 0.5 Mg/0.5 Ml Inj IVP 03/25/23 05:29 0.5 mg ONCE ONE Administration Sodium Chloride 1,000 mls @ 1,000 mls/hr 03/25/23 05:28 03/25/23 07:26 0.9 % Sodium Chloride 1000 Ml IV 03/25/23 06:27 Infused .Q1H NINA Infusion Ondansetron HCl 4 mg 03/25/23 05:28 03/25/23 05:47 Ondansetron 2 Mg/Ml Inj IVP 03/25/23 05:29 4 mg ONCE ONE Administration Medical Decision Making Lab Data Lab results reviewed: Yes I reviewed the patient's lab results Lab results narrative: Lab findings initially reassuring. No obvious significant leukocytosis or markedly elevated lactate. Borderline low potassium. Labs: Lab Results 03/25/23 Range/Units 05:13 WBC 8.72 (4.50-11.00) K/uL RBC 4.24 (4.00-5.20) m/uL Hgb 12.3 (12.0-16.0) gm/dL Hct 38.7 (33.0-51.0) % MCV 91 (80-100) fL MCH 29 (26-34) pg MCHC 32 (32-36) gm/dL RDW Coeff of Jose Miguel 14.6 (11.5-15.5) % Plt Count 340 (140-440) K/uL Neut % (Auto) 78.9 H (42.0-72.0) % Lymph % (Auto) 12.2 L (20-44) % [place] % (Auto) 6.3 (0.0-11.0) % Eos % (Auto) 2.3 (0.0-7.0) % Baso % (Auto) 0.2 (0.0-3.0) % Neut # (Auto) 6.90 (1.7-7.0) K/uL Lymph # (Auto) 1.10 (0.90-2.90) K/uL [place] # (Auto) 0.50 (0.00-0.90) K/UL Eos # (Auto) 0.20 (0.00-0.50) K/uL Baso # (Auto) 0.02 (0.00-0.30) K/uL Abs Immat Gran (auto) 0.01 (0.00-0.30) K/uL Imm/Tot Granulo (auto) 0.1 % Sodium 135 (135-149) mmol/L Potassium 3.2 L (3.6-5.1) mmol/L Chloride 97 (96-114) mmol/L Carbon Dioxide 23 (20-32) mmol/L Anion Gap 15 (7-15) mEq/L BUN 15 (7-30) mg/dL Creatinine 0.6 (0.5-1.5) mg/dL Estimated Creat Clear 39.59 Estimated GFR 93 ml/min Glucose 163 H (60-115) mg/dL Lactate 1.3 (0.5-1.9) mmol/L Calcium 10.2 (8.4-10.6) mg/dL Total Bilirubin 0.7 (0.1-1.5) mg/dL AST 31 (12-35) U/L ALT 22 (4-35) U/L Alkaline Phosphatase 167 H (40-150) U/L C-Reactive Protein 1.1 H (0.5-1.0) mg/dL Total Protein 8.3 (6.0-8.3) g/dL Albumin 5.0 (3.3-5.0) g/dL Lipase 180 (23-300) U/L Imaging Data Abdominal x-ray: Attestation: I have reviewed the pertinent imaging results. My impression: NG tube in proper placement. There is really only 1 dilated loop of small bowel but is not that dissimilar to her last set of imaging. Her clinical course did follow typical partial small-bowel obstruction at that time. Radiologist's impression: Impression: Nasogastric tube ends in the stomach. No plain-film evidence of ileus or obstruction. No definite free air Discharge Plan Discharge Clinical Impression: SBO (small bowel obstruction) Patient Disposition: Admitted As Observation
[2023-03-25] MEDS: ONDANSETRON 2 MG/ML inj 4 MG IVP ×5 (05:47→22:42)
[2023-03-25] MEDS: 0.9 % SODIUM CHLORIDE 1000 ml 1,000 ML IV (05:47)
[2023-03-25] MEDS: HYDROmorphone 0.5 mg/0.5 ml inj IVP ×3 (05:47→22:43)
[2023-03-25 05:51] LABS: Lactate* 1.3 mmol/L (0.5-1.9)
[2023-03-25 05:54] LABS: Basophils Absolute Auto 0.02 K/uL (0.00-0.30); Basophils Percent Auto 0.2 % (0.0-3.0); Eosinophils Percent Auto 2.3 % (0.0-7.0); Hematocrit 38.7 % (33.0-51.0); Hemoglobin* 12.3 gm/dL (12.0-16.0); Immature Granulocytes Abs Auto 0.01 K/uL (0.00-0.30); Immature Granulocytes Pct Auto 0.1 %; Lymphocytes Percent Auto 12.2 % (20-44); Mean Corpuscular HGB Conc 32 gm/dL (32-36); Mean Corpuscular Hemoglobin 29 pg (26-34); Mean Corpuscular Volume 91 fL (80-100); Monocytes Percent Auto 6.3 % (0.0-11.0); Neutrophils Percent Auto 78.9 % (42.0-72.0); Platelet Count* 340 K/uL (140-440); RDW Coefficient of Variation % 14.6 % (11.5-15.5); Red Blood Count 4.24 m/uL (4.00-5.20); White Blood Count* 8.72 K/uL (4.50-11.00)
[2023-03-25 05:56] LABS: Chloride* 97 mmol/L (96-114)
[2023-03-25 05:57] LABS: Potassium* 3.2 mmol/L (3.6-5.1); Sodium* 135 mmol/L (135-149)
[2023-03-25 05:59] LABS: Creatinine* 0.6 mg/dL (0.5-1.5); Est. Creatinine Clearance* 39.59; Estimated Glomerular Filt Rate 93 ml/min
[2023-03-25 06:00] LABS: Alanine Aminotransferase* 22 U/L (4-35); Alkaline Phosphatase* 167 U/L (40-150); Anion Gap 15 mEq/L (7-15); Aspartate Amino Transferase* 31 U/L (12-35); Bilirubin Total* 0.7 mg/dL (0.1-1.5); Blood Urea Nitrogen* 15 mg/dL (7-30); Calcium* 10.2 mg/dL (8.4-10.6); Carbon Dioxide* 23 mmol/L (20-32); Glucose* 163 mg/dL (60-115); Lipase* 180 U/L (23-300); Total Protein* 8.3 g/dL (6.0-8.3)
[2023-03-25 06:03] LABS: C Reactive Protein* 1.1 mg/dL (0.5-1.0); Slide Review Reflex No
--- NOTE | 2023-03-25 06:26 | ED.NURSE ---
Gastrocult pH reads 5
[2023-03-25] MEDS: LACTATED RINGERS 1000 ML 1,000 ML 125 ML IV ×2 (10:09→17:27)
[2023-03-25] MEDS: AMLODIPINE 5 MG TABLET PO (10:24)
--- NOTE | 2023-03-25 10:30 | REH.PT ---
I checked on pt. She was just admitted to the floor and receiving IV meds. Still feeling nauseous. Per RN, she walked to/from BR w/ gait belt only and did fine. PLOF I ambulation w/o AD. Will evaluate tomorrow.
--- NOTE | 2023-03-25 12:50 | P.IMHP_ITS ---
Hospitalist- H&P: HPI History of Present Illness Date Seen: 03/25/23 Chief complaint: Vomiting, Upper right abdomen pain Narrative: Radha Kelly is a 77 year old female with history of recurrent small-bowel obstructions presents with right upper quadrant abdominal pain and vomiting star ting at 1:30 a.m. this morning. She reports this is characteristic of how she feels when she has a recurrent small-bowel obstruction. Emesis was nonbloody. Yesterday she was feeling fine. She has had at least 4 previous hospitalizations for small-bowel obstruction. These always resolve with conservative management. Usually but not always treated with an NG tube. Has never had surgery for lysis of adhesions. Previous surgeries are laparoscopic cholecystectomy, vaginal hysterectomy and laparoscopic salpingo oophorectomy. Previous abdominal CT scans with these episodes heavy usually but not always shown findings consistent with a mechanical bowel obstruction. Her last episode was about 2.5 years ago. In the emergency department she had an NG tube placed with rapid relief of abdominal pain and vomiting. Recent past medical history is notable for her having an infection of her left index finger. She was hospitalized and managed at [facility]. 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 Ten days ago she fell at home and had at head injury. After that she did have some vomiting head CT scan did not show any intracranial bleeding. She has continued to however to have significant headache, dizziness and feels unbalanced as a result. Likely sequela lie of a concussion Review of Systems Narrative: Review of systems is unremarkable except as noted above [facility] Medical History (Updated 03/25/23 @ 13:10 by Pancho Kim MD) Small bowel obstruction ?K56.609 - Unspecified intestinal obstruction, unspecified as to partial versus complete obstruction (ICD-10) Hyperlipidemia ?E78.5 - Hyperlipidemia, unspecified (ICD-10) GERD (gastroesophageal reflux disease) ?K21.9 - Gastro-esophageal reflux disease without esophagitis (ICD-10) Hypertension ?I10 - Essential (primary) hypertension (ICD-10) Surgical History (Updated 03/25/23 @ 13:03 by Pancho Kim MD) Status post bilateral salpingo-oophorectomy ?Z90.722 - Acquired absence of ovaries, bilateral (ICD-10) Status post vaginal hysterectomy ?Z90.710 - Acquired absence of both cervix and uterus (ICD-10) Status post laparoscopic cholecystectomy ?Z90.49 - Acquired absence of other specified parts of digestive tract (ICD- 10) Family History Mother Colon cancer Breast cancer High blood pressure Stroke Brother Colon cancer High blood pressure Leukemia Father Stroke Social History (Updated 03/25/23 @ 13:06 by Pancho Kim MD) Narrative: She lives with her and [facility]. 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 Occasionally drinks alcohol What is your current living situation?: I presently have a place to live Problems where you live: no known problems Problems where you live details: none In the past 12 months, utilities in danger of being shut off: no In past 12 months, lack of transportation kept you from medical appts, meetings, work, or getting things needed for daily living: no In the past 12 mos, have been you worried that your food would run out before you had money to buy more?: never true In the past 12 mos, the food you bought just didn't last and you didn't have money to buy more?: never true Highest level of school completed/degree received: Bachelor's degree Smoking Status: Never smoker Do you use any of these nicotine containing products: None How often do you have a drink containing alcohol: monthly or less How many standard drinks containing alcohol do you have on a typical day: 1 or 2 How often do you have six or more drinks on one occasion: Never AUDIT-C Alcohol total score: 1 Non-prescribed substance use: denies use Caffeine: Yes (rarely) How often does anyone, including family, friends and others, physically hurt you : never How often does anyone, including family, friends and others, insult or talk down to you: never How often does anyone, including family, friends and others, threaten you with harm: never How often does anyone, including family, friends and others, scream or curse at you: never service: No Meds Home Medications and Allergies Home Medications Medication Instructions Recorded Confirmed Type amlodipine 5 mg tablet 5 mg PO DAILY 03/10/22 03/25/23 History omeprazole 20 mg capsule,delayed 20 mg PO DAILY 03/10/22 03/25/23 History release potassium chloride 20 mEq 20 meq PO DAILY 03/10/22 03/25/23 History tablet,extended release(part/cryst) propranolol 120 mg capsule,24 120 mg PO BID 03/10/22 03/25/23 History hr,extended release rosuvastatin 40 mg tablet 40 mg PO DAILY 03/10/22 03/25/23 History triamterene 37.5 1 cap PO DAILY 03/10/22 03/25/23 History mg-hydrochlorothiazide 25 mg capsule Allergies Allergy/AdvReac Type Severity Reaction Status Date / Time lisinopril Allergy Mild Cough Verified 02/17/23 10:56 Exam Narrative: Exam Narrative: She is alert and appears in no distress. She gives her own history. NG tube is suctioning out nonbloody gastric contents. Respirations are clear to auscultation. Cardiovascular: S1, S2, regular rate and rhythm. Abdomen is soft. Bowel sounds are diminished. She has mild right upper quadrant te nderness. No other tenderness no mass no peritonitis. External genitalia normal. Extremities normal. No edema. Intact peripheral pulses. Const: Vital Signs, click to edit/add: Vital Signs - 24 hr 03/25/23 05:06 03/25/23 07:58 03/25/23 08:00 Temperature 97.7 F 98.3 F Pulse Rate [Right Pulse Oximeter] 63 Pulse Rate [Right Radial] 63 64 Respiratory Rate 24 20 16 Blood Pressure [Le ft Arm] 183/78 H 183/78 H Blood Pressure [Ri ght Upper Arm] 177/104 H Pulse Oximetry 99 100 100 Oxygen Delivery Me thod Room Air Room Air Room Air 03/25/23 10:00 03/25/23 11:42 Temperature 97.8 F Pulse Rate [Right Pulse Oximeter] Pulse Rate [Right Radial] 71 Respiratory Rate 16 16 Blood Pressure [Le ft Arm] 149/73 H Blood Pressure [Ri ght Upper Arm] Pulse Oximetry 100 96 Oxygen Delivery Me thod Room Air Room Air Documenting provider has reviewed patient's vital signs: yes Hospitalist - H&P: Result Labs Labs: Short CBC 03/25/23 Range/Units 05:13 WBC 8.72 (4.50-11.00) K/uL Hgb 12.3 (12.0-16.0) gm/dL Hct 38.7 (33.0-51.0) % Plt Count 340 (140-440) K/uL BMP 03/25/23 05:13 Sodium 135 Potassium 3.2 L Chloride 97 Carbon Dioxide 23 BUN 15 Creatinine 0.6 Glucose 163 H Calcium 10.2 Liver Function 03/25/23 Range/Units 05:13 Total Bilirubin 0.7 (0.1-1.5) mg/dL AST 31 (12-35) U/L ALT 22 (4-35) U/L Alkaline Phosphatase 167 H (40-150) U/L Albumin 5.0 (3.3-5.0) g/dL Assessment and Plan Assessment and plan (1) SBO (small bowel obstruction): Problem comment: Recurrent. Relatively benign exam today. NG suctioning, IV fluids, pain medication, antiemetic, surgical consult, conservative management. Status: Acute (2) Concussion: Problem comment: From head injury 10 days ago. Will have therapy evaluate. Status: Acute (3) Hypertension: Problem comment: Resume beta-keshav. Hold diuretic for now pending return of oral intake Status: Acute Plan Admit to the hospital for management of small bowel obstruction. Anticipate uncomplicated recovery and conservative management strategy. Total time spent today is 70 minutes, 50 minutes in coordination of care discussing with patient, and other providers ongoing evaluation management
--- NOTE | 2023-03-25 15:50 | REH.OT ---
OT: Attempted 2x and patient nauseated, had just vomited in pm, requesting to wait to be seen. Will reschedule to see tomorrow am.
--- NOTE | 2023-03-25 19:34 | PC.NURSE ---
Addendum entered by Carmella Holland RN 03/25/23 20:07: Emesis noted to be mix of clear and yellow in color. NG output noted to be mix of clear and yellow/light brown. Original Note: Shift note [id number]: Pt noted to have three episodes of emesis throughout the shift with PRN Zofran administered along with anti-nausea aromatherapy patch. Abdominal pain has been treated with PRN Dilaudid which was noted to be effective upon followup. Pt has been afebrile throughout the shift and transfers well with SBA using GB. She has been using call light appropriately and has been continent of bladder. Bowel sounds noted to be hypoactive x 4. MD also noted bowel sounds to be diminished. Pt remains NPO with IV LR running at 125 mL/hr. Pt reported having fall at home on 03/15/23 and is noted to have slight bump along with some faded bruising to posterior aspect of R side of head as a result of this. Pt noted to be alert & oriented x [address] NG in place with LIS. Pt has had 725 mL of brown output via NG canister throughout the shift.
[2023-03-25] MEDS: ENOXAPARIN 40 MG/0.4 ML INJ SUBCUT (22:41)
[2023-03-25] MEDS: ROSUVASTATIN CALCIUM 10 MG TABLET 40 MG PO (22:42)
[2023-03-25] MEDS: SODIUM CHLORIDE 0.9 % (FLUSH) 10 ML SYRINGE 5 ML IVF (22:43)
[2023-03-26] VITALS (7 sets, daily range): BP systolic 132–152; BP diastolic 66–72; PULSE 62–72; RESP 16–18; TEMP 36.2–36.8; O2SAT 97–99
[2023-03-26] MEDS: LACTATED RINGERS 1000 ML 1,000 ML 125 ML IV ×2 (00:53→08:50)
--- NOTE | 2023-03-26 06:53 | PC.NURSE ---
Shift note 23-07: Pt has denied pain or nausea, abd is now soft, BS are active, 100cc greenish output via NG to LIS. Lg liquid w/ many formed pieces of stool this am.
[2023-03-26] MEDS: AMLODIPINE 5 MG TABLET PO (09:28)
[2023-03-26] MEDS: SODIUM CHLORIDE 0.9 % (FLUSH) 10 ML SYRINGE 5 ML IVF (09:29)
[2023-03-26] MEDS: ACETAMINOPHEN 325 MG TABLET 650 MG PO (13:29)
--- NOTE | 2023-03-26 15:19 | P.DS_ITS ---
DS: Providers Provider Date Seen: 03/26/23 Date of admission: 03/25/23 09:23 Primary care physician: Vishnu Whittaker MD Admitting Clinician: Pancho Kim MD Attending Physician on discharge: Pancho Kim MD Date of Discharge: 03/26/23 DS: Diagnosis Discharge Diagnosis (1) SBO (small bowel obstruction): Status: Acute Problem details: Recurrent. Resolved with NG suctioning for approximately 24 hours. Having diarrhea stools. NG removed. Advance diet and tolerated this well. (2) Concussion: Status: Acute Problem details: From head injury 10 days ago. Therapy recommends using a walker at home for now for balance DS: Summary Hospital Course Hospital Course: 77-year-old female with history of recurrent small-bowel obstructions admitted to the hospital with onset of abdominal pain and intractable vomiting. She reported this was characteristic of previous episodes of small-bowel obstruction. In the past these have always been managed conservatively. On this admission she had NG tube placed and had relatively quick resolution of her nausea vomiting and abdominal pain. She was treated with IV fluids, antiemetics and pain medications. Overnight she began having liquid stools. Her pain is resolved. NG tube was removed. She was started on clear liquid diet. During the day today she has been eating . On March 15 she had a concussion. She reports still having symptoms including imbalance. Therapy evaluate her and recommend she use a front wheeled walker for this. Status at Discharge Functional status at discharge: uses cane/walker Overall status at discharge: patient is progressing back to baseline Time Spent with Patient Time attestation: Total time spent providing and/or coordinating discharge services: 40 minutes Time spent: Greater than 30 minutes Exam Narrative: Exam Narrative: She is alert and in no distress. Abdomen with bowel sounds active. Abdomen is soft without tenderness or mass. She is observed to walk well with a walker. Const: Vital Signs, click to edit/add: Vital Signs - 24 hr 03/25/23 15:21 03/25/23 19:00 03/26/23 00:30 Temperature 98.3 F 98.2 F 97.2 F L Pulse Rate [Right Radial] 71 69 72 Respiratory Rate 16 16 16 Blood Pressure [Le ft Arm] 155/95 H 147/77 H 144/69 H Pulse Oximetry 99 99 98 Oxygen Delivery Me thod Room Air Room Air Room Air 03/26/23 05:00 03/26/23 07:45 03/26/23 07:51 Temperature 98.2 F 97.8 F Pulse Rate [Right Radial] 66 67 67 Respiratory Rate 18 16 16 Blood Pressure [Le ft Arm] 152/72 H 148/66 H Pulse Oximetry 97 97 Oxygen Delivery Me thod Room Air Room Air 03/26/23 11:16 03/26/23 15:11 Temperature 97.7 F 97.9 F Pulse Rate [Right Radial] 64 62 Respiratory Rate 16 16 Blood Pressure [Le ft Arm] 152/67 H 132/72 Pulse Oximetry 98 99 Oxygen Delivery Me thod Room Air Room Air Documenting provider has reviewed patient's vital signs: yes Discharge Plan Discharge Disposition: Home, Self-Care Date of Admission: 03/25/23 09:23 Attending Provider on Discharge: Pancho Kim Consulting Providers: Sylvia Villaseñor Primary Care Provider: Vishnu Whittaker Condition: Improved Anticipated Discharge Date/Time: 03/26/23 15:17 Discharge Medications: Continued rosuvastatin 40 mg tablet 40 mg PO DAILY triamterene-hydrochlorothiazid 37.5-25 mg capsule 1 cap PO DAILY propranolol 120 mg capsule,extended release 24 hr 120 mg PO BID potassium chloride 20 mEq tablet,ER particles/crystals 20 meq PO DAILY amlodipine 5 mg tablet 5 mg PO DAILY omeprazole 20 mg capsule,delayed release(DR/EC) 20 mg PO DAILY Discontinued metoclopramide HCl [Reglan] 10 mg tablet 10 mg PO Q8-12H PRN (Reason: nausea and vomiting) Qty: 20 0RF Discharge Orders: Discharge Order (Routine); Ordered 03/26/23 Ordered By: Pancho Kim Patient Education: Bowel Obstruction (DC) Additional Instructions: If you get recurrent abdominal pain and vomiting return to the emergency department. Use a walker for ambulation. Talk to your doctor about ongoing therapy evaluation for your concussion. Activity Level: Activity as Tolerated and Use Walker Discharge Diet: Regular Follow Up Appointments: Vishnu Whittaker MD [Primary Care Provider] - Forms: [employer] Medical Info Instructions
--- NOTE | 2023-03-26 16:34 | PC.NURSE ---
Addendum entered by Carmella Holland RN 03/26/23 16:41: Bowel sounds active in all four quadrants prior to discharge. Original Note: Pt discharged at 1628 with transportation provided by . Pt noted to be alert & oriented x 4 and abdominal cramping managed with PRN Tylenol. Pt has had no N/V today and has remained continent of bowel and bladder. Stools have been small though loose in consistency- four BMs noted since 0700. NG tube discontinued this morning per MD order. Pt able to transfer/ambulate in room independently prior to discharge. IV to R forearm removed prior to discharge with catheter noted to be intact. Pt states she will make follow up appointment with PCP Dr. Whittaker.
== END 2023-03-26 16:28 | disposition home or self-care (01) | DRG 390 ==
LOC: ED 07:26 → MEDSURG 07:43
PROVIDERS: Admitting Provider Family Medicine; Emergency Provider Family Medicine; PCP Family Medicine; Visit Provider Family Medicine
DX: K56.609 Unspecified intestinal obstruction, unspecified as to partial versus complete obstruction (principal); I10 Essential (primary) hypertension; S06.0XAD Concussion with loss of consciousness status unknown, subsequent encounter
CPT/HCPCS: 36415; 43752; 74018; 80053; 83605; 83690; 85025; 86140; 97116; 97161; 97165; 99284; A9270; J1170; J1650; J2405; J7030; J7120

== ENCOUNTER 2024-01-15 06:53 | Outpatient (CLI) | payer MEDICARE, OTHER, SELFPAY ==
--- OUTSIDE RECORDS SUMMARY | 2024-01-15 06:55 | XMS_ITS | Clinical Summary ---
Author Organization [facility] Address [address] [place] [address] Care Team Providers Care Test Borer Helper Name Role Phone Elsewhere, Pcp Primary Care Provider Unavailabl e Source Comments Patient records contain information from all sites at [facility]. For routine questions regarding patient records, call [phone] during business hours, M-F 8:00 AM - 5:00 PM Central Time. Record requests for emergency care only can be directed to [phone] at any time.[facility] Allergies Active Allergy Reactions Criticality Noted Date Comments Lisinopril Cough 11/24/2006 Medications * This document contains information received from the source organization and may not represent a complete record from that organization. amLODIPine (NORVASC) 5 mg tablet Take 5 mg by mouth daily. 8 Active cholecalciferol (VITAMIN D3) 2,000 Unit capsule Take 2,000 Units by mouth daily. 3 Active omeprazole (PriLOSEC) [address] capsule Take 20 mg by mouth daily. 8 Active ondansetron ODT (ZOFRAN-ODT) 4 mg disintegrating tablet Dissolve 4 mg in the mouth every 8 (eight) hours as needed for vomiting or nausea. 8 Active potassium chloride (KLOR-CON M/KDUR) 20 mEq ER tablet Take 20 mEq by mouth daily. 8 Active propranolol (INDERAL LA) 120 mg 24 hr capsule Take 120 mg by mouth 2 (two) times a day. 8 Active rosuvastatin (CRESTOR) 40 mg tablet Take 40 mg by mouth daily. 8 Active triamterene-hydroCH LOROthiazide (DYAZIDE) 37.5-25 mg per capsule Take 1 capsule by mouth daily. 8 Active sennosides-docusate sodium (SENOKOT-S) 8.6-50 mg per tablet Take 1 tablet by mouth 2 (two) times a day. 6 tablet 3 Active metoclopramide (REGLAN) 10 mg tablet Take 10 mg by mouth 3 (three) times a day before meals. 3 Active sennosides (SENOKOT) 8.6 mg tablet Take 8.6 mg by mouth daily. Active Active Problems Problem Noted Date Diagnosed Date Amputation Finger Status Post Left 02/09/2023 Cellulitis Finger Left 01/20/2023 Cellulitis 01/19/2023 Encounters Date Type Department Care Team Description 11/09/2023 9:00 AM CDT Comprehensive Visit Department of Physical Medicine and Rehabilitation in [place], [place] [address] [place] [address] Janeth Smith P.A.-C., M.S. Indira Lindsay M.S., O.T. Amputation Finger Status Post Left (Primary Dx) 11/09/2023 8:00 AM CDT Office Visit Department of Orthopedic Surgery in [place], [place] [address] [place] [address] Janeth Smith P.A.-C., M.S. Amputation Finger Status Post Left (Primary Dx) from Last 3 Months Family History Medical History Relation Name Comments Arthritis Father Praful Stroke Father Praful Arthritis Mother Roxanne Breast cancer Mother Roxanne Colon cancer Mother Roxanne Hypertension Mother Roxanne Migraines Mother Roxanne Stroke Mother Roxanne Relation Name Status Comments Father Praful Mother Roxanne Social History Tobacco Use Types Packs/Day Years Used Date Smoking Tobacco: Never Passive Smoke Exposure: Never Smokeless Tobacco: Never Tobacco Cessation:Counseling Given: Not Answered Alcohol Use Standard Drinks/Week Comments Yes 2 (1 standard drink = 0.6 oz pur e alcohol) Humiliation, Afraid, Rape, and Kick questionnair e Answer Date Recorded Within the last year, have y ou been afraid of your partner or ex-partner? No 01/07/2022 Within the last year, have y ou been humiliated or emotionally abused in other ways by your partner or ex-partner? No Within the last year, have y ou been kicked, hit, slapped, or otherwise physically hurt by your partner or ex-partner? No 01/07/2022 Within the last year, have y ou been raped or forced to have any kind of sexual activity by your partner or ex-partner? No 01/07/2022 Social Connection and Isolat ion Panel [NHANES] Answer Date Recorded In a typical week, how many times do you talk on the phone with family, friends, or neighbors? More than three times a week 01/07/2022 How often do you get togethe r with friends or relatives? More than three times a week 01/07/2022 How often do you attend [facility] or hindu services? More than 4 times per year 01/07/2022 Do you belong to any clubs o r organizations such as gnosticist groups, unions, fraternal or athletic groups, or school groups? Yes 01/07/2022 How often do you attend meet ings of the clubs or organizations you belong to? 1 to 4 times per year 01/07/2022 Are you , , di vorced, , never , or living with a partner? 01/07/2022 AUDIT-C Answer Date Recorded Q1: How often do you have a drink containing alc ohol? 2-3 times a week 01/07/2022 Q2: How many drinks containi ng alcohol do you have on a typical day when you are drinking? 1 or 2 01/07/2022 Q3: How often do you have si x or more drinks on one occasion? Never 01/07/2022 Overall Financial Resource Strain (CARDIA) Answe r Date Recorded How hard is it for you to pa y for the very basics like food, housing, medical care, and heating? Not hard at all 02/05/2023 [facility] [place] [facility] Occupat ional [facility] - Occupational Stress Questionnaire Answer Date Recorded Do you feel stress - tense, restless, nervous, or anxious, or unable to sleep at night because your mind is troubled all the time - these days? Not at all 01/07/2022 Exercise Vital Sign Answer Date Recorde d On average, how many days pe r week do you engage in moderate to strenuous exercise (like a brisk walk)? 3 days 02/02/2023 On average, how many minutes do you engage in exercise at this level? 20 min 02/02/2023 Hunger Vital Sign Answer Date Recorded Within the past 12 months, y ou worried that your food would run out before you got the money to buy more. Never true 02/06/20 23 Within the past 12 months, t he food you bought just didn't last and you didn't have money to get more. Never true 02/05/2023 PRAPARE - Transportation Answer Date Re corded In the past 12 months, has l ack of transportation kept you from medical appointments or from getting medications? No 11/2022 In the past 12 months, has l ack of transportation kept you from meetings, work, or from getting things needed for daily living? No 02/05/2023 Nutrition Answer Date Recorded On average, how many serving s of fruits and vegetables do you eat per day (serving size is equal to 1 cup or approximately the size of a tennis ball)? 3-5 02/02/2023 Dental Answer Date Recorded Dental: Regular Dentist Yes 01/08/20 Employment Answer Date Recorded Employment status Retired 02/02/2023 Housing Stability Answer Date Recorded What is your living situation today? I have a [facility] place to live 02/05/2023 Education Answer Date Recorded What is the highest level of school you have completed or the highest degree you have received? Associate degree: occupational, technical, or vocational program 01/07/2022 Comments No Sex and Gender Information Value Date Recorded Sex Assigned at Female 01/07/2022 9:56 AM CDT Legal Sex Female 9:22 AM TELEPHONE ANSWERING SERVICE OPERATOR Gender Identity Female 01/07/2022 9:56 AM CDT Sexual Orientation Straight 01/07/2022 9: 56 AM CDT Last Filed Vital Signs Vital Sign Reading Time Taken Comments Blood Pressure 144/72 03/15/2023 1:10 PM TELEPHONE ANSWERING SERVICE OPERATOR Pulse 85 03/15/2023 1:10 PM TELEPHONE ANSWERING SERVICE OPERATOR Temperature 36.5 ??C (97.7 ??F) 03/15/2023 7:23 AM CS T Respiratory Rate 12 03/15/2023 1:10 PM TELEPHONE ANSWERING SERVICE OPERATOR Oxygen Saturation 99% 03/15/2023 1:10 PM TELEPHONE ANSWERING SERVICE OPERATOR Inhaled Oxygen Concentration - - Weight 70 kg (154 lb 5.2 oz) 03/15/2023 7:17 AM TELEPHONE ANSWERING SERVICE OPERATOR Height 160 cm (5' 3) 01/19/2023 6:57 PM CDT Body Mass Index 27.34 01/19/2023 6:57 PM CDT Plan of Treatment Health Maintenance Due Date Last Done Comments Hepatitis C Screening 1945 Office Visit for Blood Press ure Check / Re-check 04/12/2022 01/10/2022 Depression Screening (Annual PHQ-2) 03/30/2023 Fall Risk Screen (Annual) 03/30/2023 COVID-19 Vaccine (2023-2 5 season) 2023 04/20/2023, 12/25/2021, 07/15/2021, Additional history exists Influenza Vaccine (#1) 2023 , 12/11/2021, 01/09/2021, Additional history exists DTaP,Tdap,and Td Vaccines (3 - Td or Tdap) 07/22/2032 07/22/2022, 12/23/2011 Zoster Vaccines Completed 03/24/2019, 09/28, 03/04/2007 Pneumococcal vaccine (65+ years) Completed 04/28/2022, 02/01/2014, 12/23/2011 RSV vaccine - (32-3 6 weeks) or 60+ years Completed 03/11/2023 Mammogram Discontinued 04/10/2023, 03/30, 04/08/2022, Additional history exists Insurance MEDICARE [employer] [facility] [place] [id number] Care Teams Test Borer Helper Relationship Specialty Start Date End Date Elsewhere, Pcp PCP - General Internal Medicine 01/19/23
--- OUTSIDE RECORDS SUMMARY | 2024-01-15 06:55 | XMS_ITS | Clinical Summary ---
Author Organization [facility] Address [place], [place] [address] Care Team Providers Care Motion Picture Scene Builder Name Role Phone Vishnu Whittaker MD Primary Care Provider Se Medley Unavailable [phone] Marcos Stevens MD Unavailable Allergies Active Allergy Reactions Criticality Noted Date Comments Lisinopril Cough 11/24/2006 Medications Medication Sig Dispensed Refills Start Date End Date Status calcium carbonate-vitamin D3, 600 mg-400 unit, (CALCIUM WITH VITAMIN D) tablet Calcium 600mg/Vit D 800 IU - two tablets orally once daily 03/03/2011 Active cholecalciferol (VITAMIN D-3) 2,000 unit capsule Take 1 capsule by mouth once daily. 0 03/18/2013 Active sennosides (SENNA) 8.6 mg tablet Daily as needed Active ondansetron (Zofran ODT) 4 mg disintegrating tabletIndications:Na usea Place 1 Tablet (4 mg) on the tongue every 8 hours if needed for Nausea/Vomiting. 30 Tablet 2 04/28/2022 Active amLODIPine (NORVASC) 5 mg tabletIndications:Es sential hypertension Take 1 Tablet (5 mg) by mouth once daily. 90 Tablet 3 04/30/2023 Active potassium chloride (KLOR-CON M20) 20 mEq extended-release tablet (part/cryst)Indicati ons:Essential hypertension Take 1 Tablet (20 mEq) by mouth once daily with a meal. 90 Tablet 3 04/30/2023 Active propranolol ER (INDERAL LA) 120 mg Cs24 Sustained-Release capsuleIndications:O ther migraine without status migrainosus, not intractable TAKE ONE CAPSULE BY MOUTH TWICE A DAY 180 Capsule 3 04/30/2023 Active rosuvastatin (Crestor) 40 mg tabletIndications:Mi xed hyperlipidemia Take 1 Tablet (40 mg) by mouth at bedtime. 90 Tablet 3 04/30/2023 Active triamterene-hydrochl orothiazide, 37.5-25 mg, (DYAZIDE) 37.5-25 mg capsuleIndications:E ssential hypertension Take 1 Capsule by mouth every morning. 90 Capsule 3 04/30/2023 Active polyethylene glycol-electrolyte (GOLYTELY) 236-22.74-6.74 -5.86 gram suspensionIndication s:Encounter for screening colonoscopy Drink 2 liters (half the bottle) the day before colonoscopy and 2 liters (remaining prep) 6 hours prior to colonoscopy appointment. 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 Overview (12/08/2014): EGD 12/2013 mild stricture 11mm Osteoarthritis of lumbar spine 10/30/2010 Family history of breast cancer 10/30/2010 Family history of colon cancer 10/30/2010 Overview (07/11/2013): Colonoscopy 06/2013 hyperplastic polyp repeat in 5 years Migraine, unspecified, witho ut mention of intractable migraine without mention of status migrainosus 05/19/2006 Osteoarthritis, knee 05/19/2006 Overview (10/30/2010): bilateral s/p B TKA Unspecified essential hypertension 05/19/2006 Impaired fasting glucose Normocytic anemia Overview (12/08/2014): c-scope neg 06/2013, egd mild duod stricture 12/2013. Nl smear 07/2014 Resolved Problems Problem Noted Date Diagnosed Date Resolved Date Hyperlipidemia 01/30/2015 07/10/2015 Partial small bowel obstruction 07/28/2014 12/29/2023 Overview (12/22/2022): 07/5014; mid sbo, resolved spont. Anemia 05/05/2014 12/08/2014 Lipoma of other skin and subcutaneous tissue 1 12/08/2014 Pain in joint, lower leg 02/27/201005/2010 Osteoarthrosis, unspecified whether generalized or localized, unspecified site 05/19/2006 10/30/2010 Knee joint replacement by other means 05/19/2006 02/27/2010 Overview (05/19/2006): left Unspecified essential hypertension 05/19/2006 10/30/2010 Acute venous embolism and th rombosis of unspecified deep vessels of lower extremity 05/19/2006 02/27/2010 Overview (05/19/2006): (l) L/e Hyperlipidemia LDL goal <130 12/08/2014 Overview (03/17/2008): ldl goal <130 Benign neoplasm of breast Overview (10/30/2010): cysts DVT, lower extremity 021 Overview (12/08/2014): left calf, occurred 4 days after knee surgery 1997 Hyperlipidemia 04/18/2021 Encounters Date Type Department Care Team Description 01/10/2024 Travel 12/29/2023 8:00 AM CDT Preop Visit [facility] [address] [place] [address] Vishnu Whittaker MD Preoperative Exam (DOS: 01/15/2024, colonoscopy, Dr. Klein, [facility]) 12/29/2023 Travel from Last 3 Months Immunizations Name Administration Dates Next Due AMB Influenza, IIV3 (Age >=3 years)(Flu Clinic Only) 12/17/2011,01/06/2011,01/16/2010,01/01,01/19/2008 AMB Influenza, IIV4 PF (=>6 mos Flulaval,Fluzone Fluarix)(Flu Clinic Only) 12/20/2019,01/03/2016 COVID-19 VACCINE SPIKEVAX (M ODERNA 50MCG/0.5ML) 12YO+ PFS 04/20/2023 COVID-19 vaccine (Pfizer-Bio NTech 30mcg/0.3mL) 12YO+ BIVALENT PF, MDV 12/25/2021 COVID-19 vaccine (Pfizer-Bio NTech 30mcg/0.3mL) 12YO+ LANE-SUCROSE PF, MDV 07/15/2021 Influenza A (H1N1), Inactiva kathrine (Age >=3 Years) 03/28/2009 Influenza, High-dose Inactivated 12/12/2014,10/29 Influenza, IIV3 (Age 6-35 mos) 01/06/2011 Influenza, IIV3 (Age >=3 years) 12/15/2012 Influenza, Inactivated AIIV4 (Age 65+ Years) Preserv Free 03/11/2023,12/11/2021,01/09/2021 Influenza, Inactivated IIV3 (Age 65+ Years) Preserv Free 12/10/2023,01/04/2019,12/08/2017,12/08 Pneumococcal Conj 20-valent (Prevnar 20) 04/28/2022 Pneumococcal Poly,23-Valent (Pneumovax) 12/23/2011 Pneumococcal conj 13-Valent (Prevnar 13) 02/01/2014 RSV, Recombinant ADJ Reconst ituted (Arexvy 120MCG/0.5mL) 03/11/2023 Td (Age >=7 Years) 07/14/2003 Tdap 07/22/2022,12/23/2011 Zoster (Shingrix-RZV, recombinant) 03/24/2019, Zoster (Zostavax-ZVL, live) 03/04/2007 Family History Medical History Relation Name Comments Cancer Brother 2 Julian leukemia Cancer-colon Brother 2 Julian Hypertension Brother 2 Julian Other Daughter 2 migraines Other Father emphysema Stroke Father Cancer-breast Maternal Aunt Cancer-breast Maternal Grandmother Cancer-breast Mother Cancer-colon Mother Hypertension Mother Other Mother migraine Stroke Mother Heart Disease Neg. 1 Diabetes Neg. 2 Anesthesia Problem Neg. 3 Cancer-breast Other 2 cousin Cancer-breast Other 3 cousin Good Health Son 2 Relation Name Status Comments Brother 1 Alive Brother 2 Julian Daughter 1 sahra Alive Daughter 2 Father (Age 89) pulmonary edema, emphysema Maternal Aunt Maternal Grandmother Mother (Age 78) colon canc er, stroke Neg. 1 Neg. 2 Neg. 3 Other 1 andres Alive spouse Other 2 Other 3 Son 1 ronnie Alive Son 2 Social History Tobacco Use Types Packs/Day Years Used Date Smoking Tobacco: Never Smokeless Tobacco: Never Tobacco Cessation:Counseling Given: No Alcohol Use Standard Drinks/Week Comments Yes 0 (1 standard drink = 0.6 oz pure alcohol) 2 beers in a week, a glass of wine every 3-4 months PHQ-2 Answer Date Recorded PHQ-2 TOTAL SCORE 0 04/30/2023 Social Connections Answer Date Recorded Frequency of Communication with Friends and Fami ly 0 07/02/2023 Financial Resource Strain Answer Date R ecorded Difficulty of Paying Living Expenses 3 07/02/2023 Difficulty of Paying Living Expenses Not on file 07/02/2023 Food Insecurity Answer Date Recorded Worried About Running Out of Food in the Last Ye ar 1 07/02/2023 Transportation Needs Answer Date Record ed Lack of Transportation (Medical) 1 07/02/2023 Housing Stability Answer Date Recorded Unable to Pay for Housing in the Last Year 1 07/02/2023 Sex and Gender Information Value Date Recorded Sex Assigned at Female 03/10/2020 9:02 AM DIE MAKER Gender Identity Female 03/10/2020 9:02 AM DIE MAKER Sexual Orientation Straight 03/10/2020 9: 02 AM DIE MAKER Obstetrics History Para Term AB IAB SAB Ectopic Multiple Livin g Live Births 2 2 2 Date Outcome GA Total Labor Labor/2nd/3rd Weight Sex Type Anes PTL Dagmar A1 A5 Name Clin Term Term Last Filed Vital Signs Vital Sign Reading Time Taken Comments Blood Pressure 154/82 12/29/2023 7:57 AM CDT Pulse 68 12/29/2023 7:57 AM CDT Temperature 36.9 ??C (98.4 ??F) 01/02/2020 7:59 AM CD T Respiratory Rate 20 12/20/2019 12:5 0 PM CDT Oxygen Saturation 99% 12/29/2023 7:57 AM CDT Inhaled Oxygen Concentration - - Weight 69.8 kg (153 lb 12.8 oz) 12/29/2023 7:57 AM CDT Height 153.4 cm (5' 0.39) 12/29/2023 7:57 AM CD T Body Mass Index 29.65 12/29/2023 7:57 AM CDT Plan of Treatment Upcoming Encounters Date Type Department Care Team (Late st Contact Info) Description 01/15/2024 7:15 AM CDT Office Visit [facility] [address] [place] [address] Kenny Klein MD [address] [place] [address] Health Maintenance Due Date Last Done Comments COVID-19 vaccine series ( season) 2023 09/28/2023, 04/20/2023, 12/25/2021, Additional history exists Depression screening for age 12+ 04/30/2024 04/30/2023, 04/30/2023, 04/28/2022, Additional history exists Medicare Wellness for age 65+ 04/30/2024, 04/28/2022, 04/18/2021, Additional history exists BMI (ht and wt on same day) for age 18+ 12/28/2024 12/29/2023, 04/30/2023, 04/28/2022, Additional history exists Tetanus booster 07/22/2032 07/22/2022, 11/29, 07/14/2003 Hepatitis C screening for ag e 18-79 Completed 04/07/2017 Zoster (shingles) series for age 50+ Completed 03/24/2019, 10/23/2018, 03/04/2007 DEXA/DXA scan for age 65+ Completed 2020, 04/07/2017, 03/27/2015, Additional history exists Pneumococcal series for age 65+ Completed 04/28/2022, 02/01/2014, 12/23/2011 Tdap Completed 07/22/2022, 12/23/2011 RSV vaccine for adults or Completed 03/11/2023 Influenza for age 65+ Completed 12/10/2023 , 03/11/2023, 12/11/2021, Additional history exists Procedures Procedure Name Priority Date/Time Associated Diagnosis Comments XR DXA BONE DENSITY 1 SITE AXIAL AND 1 SITE PERIPHERAL Routine 04/17/2020 9:06 AM DIE MAKER Post-menopausal ANTI HCV Routine 04/07/2017 1:24 PM DIE MAKER Need for hepatitis C screening test from Last 3 Months or Most Recently Relevant to Health Maintenance Results * (ABNORMAL) XR DXA BONE DENSITY 1 SITE AXIAL AND 1 SITE PERIPHERAL (04/17/2020 9:06 AM DIE MAKER) Anatomical Region Laterality Modality LUMBAR SPINE Other Narrative 04/18/2020 2:44 PM DIE MAKER Please see scanned document for results of this study. Vishnu Whittaker MD DEXA * ANTI HCV [20328.2] (04/07/2017 1:24 PM DIE MAKER) HEPATITIS C ANTIBODY Non-Reacti ve Non-Reacti ve 04/07/2017 8:06 PM DIE MAKER [facility] Blood BLOOD SPECIMEN / Unknown Venipuncture / Unknown 04/07/2017 1:24 PM DIE MAKER 04/07/2017 1:24 PM DIE MAKER Narrative [facility] - 04/07/2017 8:06 PM DIE MAKER Antibodies to HCV not detected; does not exclude the possibility of exposure to HCV. Vishnu Whittaker MD [facility] 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
--- OUTSIDE RECORDS SUMMARY | 2024-01-15 06:56 | XMS_ITS | Encounter Summary ---
Author Organization [facility] Address [address] [place] [phone] Care Team Providers Care Real Estate Sales Supervisor Name Role Phone Elsewhere, Pcp Primary Care Provider Unavailabl e Reason for Visit * Outpatient (Routine) - Closed Specialty Diagnoses / Procedures Referred By Nehal arvizu Referred To Contact Orthopedic Surgery Pippa Turner P.A.-C. [address] [place] [phone] Phone: tel: fax: [facility] Referral ID Status Reason Start Date Expiration Date Visits Re quested Visits Authorized [id number] Closed 07/30/2023 01/28/2025 1 1 Encounter Details Date Type Department Care Team (Late st Contact Info) Description 11/09/2023 8:00 AM CDT Office Visit Department of Orthopedic Surgery in [place], [place] [address] [place] [phone] [facility] [address] [place] [phone] Amputation Finger Status Post Left (Primary Dx) Social History Tobacco Use Types Packs/Day Years Used Date Smoking Tobacco: Never Passive Smoke Exposure: Never Smokeless Tobacco: Never Alcohol Use Standard Drinks/Week Comments Yes 2 [...] week 01/07/2022 How often do you attend chur or holiness services? More than 4 times per year 01/07/2022 Do you belong to any clubs o r organizations such as voodoo groups, unions, fraternal or athletic groups, or [...] and heating? Not hard at all 02/05/2023 [facility] of Occupat ional Health - Occupational Stress [...] your living situation today? I have a [facility] place to live 02/05/2023 Education Answer Date Recorded What is the highest level of school you have completed or the highest degree you have received? Associate degree: occupational, technical, or vocational program 01/07/2022 Comments No Sex and Gender Information Value Date Recorded Sex Assigned at Female 01/07/2022 9:56 AM CDT Legal Sex Female 9:22 AM ABALONE SHELLER Gender Identity Female 01/07/2022 9:56 AM CDT Sexual Orientation Straight 01/07/2022 9: 56 AM CDT documented as of this encounter Progress Notes * Janeth Smith P.A.-C., M.S. - 11/09/2023 8:00 AM CDT SUBJECTIVE REASON FOR FOLLOW-UP Radha Kelly is a 78 y.o. female who presents for follow-up status post left index finger flexor tendon sheath irrigation with debridement of skin, tendon, soft tissue and bone of the left distalphalanx, performed on 01/23/2023. Service of Dr. Venkata Suazo. HISTORY OF PRESENT ILLNESS Mrs. 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 Overall, she reportsto be doing well in the left hand and index finger. Although she continues to have some stiffness in the index finger, she has been using the left hand as tolerated for activities of daily living. She notes some difficulty performing certain activities of daily living, such as ???reaching sharps and flats?? while playing the piano. She takes Tylenol at nighttime as needed and depending on her activity level throughout the day. She has continued wearing silicone finger tip dressings in additionto performing scar care and scar massage with scar putty. She denies any phantom sensations to the hand or index finger, is doing well overall and has no other pressing questions or concerns today. REVIEW OF SYSTEMS Review of Systems OBJECTIVE PHYSICAL EXAM Ortho Exam General: Patient is alert, oriented and in no acute distress. Skin: Fully healed surgical incisions to the A1 constantine region of the left index finger and dorsal, distal aspect of the finger have fully healed without scar hypertrophy or hyperpigmentation. Persistent skin tethering and adhesions present particularly to the scar over the A1 constantine region of the hand and to a lesser extent over the incision to the dorsal, distal finger. No appreciable edema to the distal index finger on exam today. Neuro: Sensation to light touch is intact along the radial, median, and ulnar nerve distributions of the hand and fingers. No hyperesthesias to light touch to the distal index finger on exam today. Musculoskeletal: Patient is able to actively extend the left fingers equally. Active PIP joint flexion range of motion is 80?? with 95?? at the corresponding MCP joint. No tenderness to palpation about the amputation site to the distal index finger. 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 Her history is significant for a cellulitic infection to the left index finger, for which shepreviously underwent irrigation and debridement of the left index finger DIP joint with irrigation of the flexor sheath and A1 constantine release of the index finger, performed on 01/21/2023. I encouraged the patient to continue using her left hand and index finger as tolerated for activities of daily living. She was provided with additional silicone finger caps today which she may wear as needed for comfort, to augment scar care and scar massage, and to help reshape the end of her finger. She was encouraged to continue performing routine scar care and scar massage to all of her incisions to her hand and finger. I offered to refer her a referral for consultation for fitting a prosthetic fingertip, which she may wear as needed for certain activities, such as playing the piano. She politely declined this stating that she ???thinks she is doing okay for now.?? She may continue with Tylenol and may also trial topical Voltaren 1% gel as needed for pain and discomfort. Future follow-up visits will be made on as-needed basis. She was encouraged to reach out to the service with anyfuture questions or concerns. Patient was in agreement with this plan. All of the patient's questions and concerns were addressedand answered at today's visit. There were no barriers to communication. documented in this encounter Plan of Treatment Not on file documented as of this encounter Visit Diagnoses Diagnosis Amputation Finger Status Post Left- Primary documented in this encounter Care Teams Real Estate Sales Supervisor Relationship Specialty Start Date End Date Elsewhere, Pcp PCP - General Internal Medicine 01/19/23 documented as of this encounter
--- OUTSIDE RECORDS SUMMARY | 2024-01-15 06:56 | XMS_ITS ---
Author Organization [facility] Address [address] [place] [address] Care Team Providers Care Embosser Operator Name Role Phone Unavailable Unavailable Unavailable Surgery Details Not on file Complications Check Surgery Details section. Procedure Estimated Blood Loss Check Surgery Details section. Procedure Findings Check Surgery Details section. Procedure Specimens Taken Check Surgery Details section.
--- OUTSIDE RECORDS SUMMARY | 2024-01-15 06:56 | XMS_ITS | Encounter Summary ---
Author Organization [facility] Address [address] [place] [phone] Care Team Providers Care Button Decorating Machine Operator Name Role Phone Elsewhere, Pcp Primary Care Provider Unavailabl e Reason for Visit * Physical Therapy (Routine) - Authorized Specialty Diagnoses / Procedures Referred By Nehal t Referred To Contact Diagnoses Amputation Finger Status Post Left Procedures PT or OT eval and treat (first available) Janeth Smith P.A.-C., M.S. [address] [place] [phone] Phone: tel: fax: [facility] Referral ID Status Reason Start Date Expiration Date V isits Requested Visits Authorized [id number] Authorized 09/14/2023 09/13/2024 99 99 Encounter Details Date Type Department Care Team (Latest Contact Info) Description 11/09/2023 9:00 AM CDT Comprehensive Visit Department of Physical Medicine and Rehabilitation in [place], [place] [address] [place] [phone] [facility] [address] [place] [phone] Indira Lindsay M.S., O.T. [address] [place] [phone] Amputation Finger Status Post Left (Primary Dx) [...] week 01/07/2022 How often do you attend [facility] or alevism services? More than 4 times per year 01/07/2022 Do you belong to any clubs o r organizations such as tenriism groups, unions, fraternal or athletic groups, or [...] and heating? Not hard at all 02/05/2023 [facility] of Occupat ional Health - Occupational Stress [...] your living situation today? I have a [facility] place to live 02/05/2023 Education Answer Date Recorded What is the highest level of school you have completed or the highest degree you have received? 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 - 11/09/2023 9:00 AM CDT Hand Therapy Outpatient Treatment By co-signing this note, the provider certifies the therapy being provided to this patient is reasonable and necessary for the diagnosis or treatment of this patient. SUBJECTIVE Patient's Name: Radha Kelly Referring Provider: Janeth Smith,* Reason for referral: Left index finger infection, s/p multiple I&D 01/19/23, 01/21/2023 and 01/23/2023, distal DIP amputation 01/23/2023 History of Present Illness: Radha Kelly is a 77 y.o. female who on 01/16/23 noted pain in leftindex DIP. On 01/17/23 she noted edema and erythema that rapidly progressed to the MCP. She was seen twice in urgent care and given med for possible gout and antibiotics. She transferred to [facility] after she could not get into see her primary physician in a timely matter. On 01/19/23 she underwent bedside I&D in the [facility] and was admitted for observation. Patient was referred to hand therapyfor wound care and finger gutter orthosis. On 01/21/23 patient was taken back to surgery for repeat I&D. New volar index/ palm incisions for flexor tenosynovitis and septic dorsal DIP joint. Return to OR for repeat I&D and distal DIP amputation on 01/23/2026. 02/09/2023: Returned for volar suture removal, fabrication of finger gutter PIPJ free, and edema control. 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 Patient is to advance with active and passive range of motion as tolerated as well as scar massage. She will dress her wound with bacitracin ointment and Primapore. 05/25/23: The patient has a recheck with Janeth Smith this morning. The patient reports Janeth would like to see if the patient can achieve about 10 more degrees of PIP flexion. Otherwise, she is doing great. Rehab Diagnosis: 1. Amputation Finger Status Post Left Payor: MEDICARE / Plan: MEDICARE A AND B / Product Type: Medicare / Pertinent Medical/Surgical History: Patient Active Problem List Diagnosis Cellulitis Cellulitis Finger Left Amputation Finger Status Post Left Past Surgical History: Procedure Laterality Date DEBRIDEMENT AND IRRIGATION HAND Left 01/21/2023 Procedure: DEBRIDEMENT AND IRRIGATION HAND - Left Index Finger; Surgeon: Venkata Suazo M.D.; Location: [facility] OR DEBRIDEMENT AND IRRIGATION HAND Left 01/23/2023 Procedure: DEBRIDEMENT AND IRRIGATION HAND - Left Index Finger; Surgeon: Venkata Suazo M.D.; Location: [facility] OR GALLBLADDER SURGERY 2014 JOINT REPLACEMENT 1997&2005 OOPHORECTOMY, PARTIAL OR TOTAL, UNILATERAL OR BILATERAL;.. 2014 SUPRACERVICAL HYSTERECTOMY 1983 Precautions/Restrictions: Activity and weightbearing as tolerated. Total Outpatient Visit Count in Hand Therapy: 7 OT Next Certification Date: 02/07/24 Subjective Comments from the Patient: Radha returns today following her recheck with Janeth. She reports she thinks she would benefit from a new elastomer pad for her volar index scar. Otherwise, shehas no functional limitations. Occupational Profile: Hand Dominance: Right hand dominant Patient lives with spouse/partner who can assist the patient. 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 OBJECTIVE Review of Symptoms: History obtained from chart review and the patient Physical Exam: Pain did not limit this therapy session. Appearance: Volar MCP scar mildly adhered but does not seem to be impacting MP motion. Significantly improved from last session. Sensation: Patient reports she no longer has true phantom limb sensation, but she sometimes gets the sensationthat something is on or touching the end of tip of her index finger. Edema: No visible or palpable edema on this date, improved from last session. Active Range of Motion 11/09/23: Full range of motion of the index finger Temp Recruiter Strength 11/09/23: Right: 21 Kg Left (affected): 16 Kg Fall Assessment: The patient did not report any falls to this therapist. Skilled Therapy Intervention Performed Today: Home Management: Continue with Silipos gel sleeves as needed for comfort/protection and scar management. Scar Management: This therapist fabricated a new elastomer pad to be worn over the volar index finger MP region at night only to aid in scar remodeling. This is to be secured with Spandagrip size D. The patient was provided the following handouts: None. Assessment Clinical Impression: The patient tolerated the session with no adverse reactions to this therapy session. The patient verbalized understanding to the self management program. The patient reports the orthosis is comfortable. Rehab Potential: Ms. Kelly has Good potential to achieve established therapy goals within the time frame outlined below, provided she actively participates in her therapy treatment plan and home program. Evaluation Considerations: Occupational Therapy: Comorbid Conditions:, Arthritis Hand Therapy Personal Factors: None Hand Therapy Occupational Therapy Profile Review: Brief OT Performance Deficits:, 3-5 performance deficits Evaluation Complexity Occupational Therapy , Low Hand Therapy Goals and Timeframes: The patient/caregiver will verbalize understanding of the orthotic wearing schedule and caring for the orthosis. Date 03/18/2023. Goal met The patient/caregiver will verbalize understanding of the self-management program following each therapy session. Goal met. Patient will complete his/her morning hygiene/grooming routine using the affected extremity with nodifficulty. Date 04/10/2023. Goal met. Patient will resume cooking a light meal with no difficulty using the affected extremity. Date 04/27/2023 Goal met. The severity of Ms. Kelly's functional limitation will be re-assessed within the next 10 visits. Plan Ms. Kelly was educated regarding evaluative findings, diagnosis, prognosis, potential risks and benefits of rehabilitation interventions. A collaborative effort was used to establish goals and planof care. She was informed of her right to make decisions regarding her care, including refusal of examination or treatment or selection of therapy services from another provider if desired. The treatment plan may be progressed or modified based upon her response to treatment. Treatment Plan: Start of Plan of Care: 02/09/2023 Number of Visits: 10 visits in hand therapy. Duration: through Apr 2023 Return Physician Appointment: None scheduled Plan for Next Session: Patient formally discharged from hand therapy on this date. She has our contact information if questions or concerns arise. Treatment interventions may include: -Left index 3/4 wrap finger gutter with cap- wear behavioral health associate, removing for hygiene and dressing changes- discontinued -Left volar resting orthosis- discontinued -edema measures -active/passive range of motion digits -scar management -progressive strengthening as indicated Physical Therapy Time Spent with Patient Occupational Therapy Time Spent with Patient No charge visit. Indira Lindsay M.S., O.T. documented in this encounter Plan of Treatment Not on file documented as of this encounter Visit Diagnoses Diagnosis Amputation Finger Status Post Left- Primary documented in this encounter Care Teams Button Decorating Machine Operator Relationship Specialty Start Date End Date Elsewhere, Pcp PCP - General Internal Medicine 01/19/23 documented as of this encounter
--- OUTSIDE RECORDS SUMMARY | 2024-01-15 06:56 | XMS_ITS | Referral Summary ---
Author Organization [facility] Address [address] [place] [phone] Care Team Providers Care Registered Respiratory Therapist Name Role Phone Elsewhere, Pcp Primary Care Provider Unavailabl e Source Comments Patient records contain information from all sites at [facility]. For routine questions regarding patient records, call [phone] during business hours, M-F 8:00 AM - 5:00 PM Central Time. Record requests for emergency care only can be directed to [phone] at any time.[facility] Encounters Date Type Department Care Team Description 11/09/2023 9:00 AM CDT Comprehensive Visit Department of Physical Medicine and Rehabilitation in [place], [place] [address] [place] [phone] Janeth Smith P.A.-Natasha., M.S. Indira Lindsay M.S., O.T. Amputation Finger Status Post Left (Primary Dx) 11/09/2023 8:00 AM CDT Office Visit Department of Orthopedic Surgery in [place], [place] [address] [place] [phone] [facility] P[facility] M[facility] Amputation Finger Status Post Left (Primary Dx) from Last 3 Months Allergies Active Allergy Reactions Criticality Noted Date [...] 02/09/2023 Cellulitis Finger Left 01/20/2023 Cellulitis 01/19/2023 Social History Tobacco Use Types Packs/Day Years [...] ways by your partner or ex-partner? No 10 /01/2022 Within the last year, have y ou [...] week 01/07/2022 How often do you attend [facility] or scientology services? More than 4 times per year 01/07/2022 Do you belong to any clubs o r organizations such as scientologist groups, unions, fraternal or athletic groups, or [...] and heating? Not hard at all 02/05/2023 [facility] of Occupat ionri Health - Occupational Stress Questionnaire Answer Date [...] your living situation today? I have a [facility] place to live 02/05/2023 Education Answer Date Recorded What is the highest level of school you have completed or the highest degree you have received? Associate degree: occupational, technical, or vocational program 01/07/2022 Comments No Sex and Gender Information Value Date Recorded Sex Assigned at Female 01/07/2022 9:56 AM CDT Legal Sex Female 9:22 AM SECURITY AND COMPLIANCE PROJECT MANAGER Gender Identity Female 01/07/2022 9:56 AM CDT Sexual Orientation Straight 01/07/2022 9: 56 AM CDT Last Filed Vital Signs Vital Sign Reading Time Taken Comments Blood Pressure 144/72 03/15/2023 1:10 PM SECURITY AND COMPLIANCE PROJECT MANAGER Pulse 85 03/15/2023 1:10 PM SECURITY AND COMPLIANCE PROJECT MANAGER Temperature 36.5 ??C (97.7 ??F) 03/15/2023 7:23 AM CS T Respiratory Rate 12 03/15/2023 1:10 PM SECURITY AND COMPLIANCE PROJECT MANAGER Oxygen Saturation 99% 03/15/2023 1:10 PM SECURITY AND COMPLIANCE PROJECT MANAGER Inhaled Oxygen Concentration - - Weight 70 kg (154 lb 5.2 oz) 03/15/2023 7:17 AM SECURITY AND COMPLIANCE PROJECT MANAGER Height 160 cm (5' 3) 01/19/2023 6:57 PM CDT Body Mass Index 27.34 01/19/2023 6:57 PM CDT Plan of Treatment Not on file Insurance MEDICARE [facility] JOSE MENDIETA [id number] Care Teams Registered Respiratory Therapist Relationship Specialty Start Date End Date Elsewhere, Pcp PCP - General Internal Medicine 01/19/23
--- OUTSIDE RECORDS SUMMARY | 2024-01-15 06:56 | XMS_ITS | Encounter Summary ---
Author Organization [facility] Address [address] [place] [address] Care Team Providers Care Pipe Coremaker Name Role Phone Elsewhere, Pcp Primary Care Provider Unavailabl e Encounter Details Date Type Department Care Team (Late st Contact Info) Description 09/14/2023 Clinical Communication Division of Plastic Surgery in [place], [place] [address] [place] [place] [phone] [facility] [address] [place] [phone] Social History Tobacco Use Types Packs/Day Years [...] 01/07/2022 How often do you attend chur ch or islam services? More than 4 times per year 01/07/2022 Do you belong to any clubs o r organizations such as religious groups, unions, fraternal or athletic groups, or [...] and heating? Not hard at all 02/05/2023 [facility] of Occupat ional Health - Occupational Stress [...] your living situation today? I have a [facility] place to live 02/05/2023 Education Answer Date Recorded What is the highest level of school you have completed or the highest degree you have received? Associate degree: occupational, technical, or vocational program 01/07/2022 Comments No Sex and Gender Information Value Date Recorded Sex Assigned at Female 01/07/2022 9:56 AM CDT Legal Sex Female 9:22 AM LEAD IOS DEVELOPER Gender Identity Female 01/07/2022 9:56 AM CDT Sexual Orientation Straight 01/07/2022 9: 56 AM CDT documented as of this encounter Plan of Treatment Not on file documented as of this encounter Visit Diagnoses Not on filedocumented in this encounter Care Teams Pipe Coremaker Relationship Specialty Start Date End Date Elsewhere, Pcp PCP - General Internal Medicine 01/19/23 documented as of this encounter
--- NOTE | 2024-01-15 08:29 | W.ANESCHARGE ---
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
== END 2024-01-15 06:54 | disposition home or self-care (01) ==
LOC: OP CLINIC 06:54
PROVIDERS: PCP Family Medicine; Visit Provider Internal Medicine Gastroenterology
DX: Z12.11 Encounter for screening for malignant neoplasm of colon (principal); Q43.8 Other specified congenital malformations of intestine; Z86.0101 Personal history of adenomatous and serrated colon polyps; Z80.0 Family history of malignant neoplasm of digestive organs
CPT/HCPCS: 00812; 45378; 99100; J2405; J2704

== ENCOUNTER 2024-06-30 07:30 | Outpatient (RCR) | payer MEDICARE, OTHER, SELFPAY | END 2024-10-28 23:59 | disposition home or self-care (01) | PROVIDERS: PCP Family Medicine; Visit Provider Family Medicine | DX: M54.50 Low back pain, unspecified (principal); M25.551 Pain in right hip; Z51.89 Encounter for other specified aftercare | CPT/HCPCS: 97110; 97140; 97162 ==

== ENCOUNTER 2024-10-19 20:23 | Inpatient (IN) | payer MEDICARE, OTHER, SELFPAY ==
--- NOTE | 2024-10-19 20:25 | ED.GENADULT ---
HPI - General Adult General Date Seen: 10/19/24 Chief complaint: Abdominal Pain Stated complaint: stomach pain, poss obstructed bowl Time Seen by Provider: 10/19/24 20:24 History of Present Illness HPI narrative: 79-year-old female with a past medical history previous small-bowel obstruction (was admitted 02/2023 for concussion and small-bowel obstruction. Per notes small-bowel obstruction resolved after NG suction for to about 24 hours. Per her history and physical from February 2023 she has had a total now of 5 small-bowel obstructions. Never required operation for them or lysis of adhesions. Previous surgical history includes laparoscopic cholecystectomy, vaginal hysterectomy, laparoscopic salpingo-oophorectomy. She presents to the ER today with abdominal pain that is mostly right upper quadrant but sometimes generalized and nausea and vomiting. Symptoms began about 3:00 p.m. this afternoon it got worse through the evening. Symptoms have been reminiscent since they started of her previous bowel obstructions. She was trying to ride this went at home for a couple of hours but simply could not get better. She has already tried taking some leftover Zofran 0 DT which is not effective in resolving her vomiting. She has not had any fever or chills. No body aches. No diarrhea. Urination has been normal. Related Data Home Medications ?Medication ?Instructions ?Recorded ?Confirmed amlodipine 5 mg tablet 5 mg PO DAILY 03/10/22 10/19/24 omeprazole 20 mg capsule,delayed 20 mg PO DAILY 03/10/22 10/19/24 release potassium chloride 20 mEq 20 meq PO DAILY 03/10/22 10/19/24 tablet,extended release(part/cryst) propranolol 120 mg capsule,24 120 mg PO BID 03/10/22 10/19/24 hr,extended release rosuvastatin 40 mg tablet 40 mg PO DAILY 03/10/22 10/19/24 triamterene 37.5 1 cap PO DAILY 03/10/22 10/19/24 mg-hydrochlorothiazide 25 mg capsule calcium 600 mg (as 2 tab PO DAILY 10/19/24 10/19/24 carbonate)-vitamin D3 10 mcg (400 unit) tablet (Calcium 600 + D(3)) cholecalciferol (vitamin D3) 50 2,000 unit PO DAILY 10/19/24 10/19/24 mcg (2,000 unit) capsule lidocaine 5 % topical patch 1 patch topical .prn 10/19/24 10/19/24 olmesartan 20 mg tablet 20 mg PO DAILY 10/19/24 10/19/24 ondansetron HCl 4 mg tablet 4 mg PO .prn 10/19/24 10/19/24 sennosides 8.6 mg tablet 8.6 mg PO .prn 10/19/24 10/19/24 (Black-Draught Lax-Senna) Previous Rx's ?Medication ?Instructions ?Recorded benzonatate 100 mg capsule 100 - 200 mg (1 - 2 x 100 mg) PO 07/22/23 TID PRN cough #30 caps Allergies Allergy/AdvReac Type Severity Reaction Status Date / Time lisinopril Allergy Mild Cough Verified 10/19/24 20:36 [facility] Medical History (Updated 10/19/24 @ 23:30 by Billy Bruno MD) Septic arthritis of interphalangeal joint of finger ?M00.9 - Pyogenic arthritis, unspecified (ICD-10) Small bowel obstruction ?K56.609 - Unspecified intestinal obstruction, unspecified as to partial versus complete obstruction (ICD-10) Hyperlipidemia ?E78.5 - Hyperlipidemia, unspecified (ICD-10) GERD (gastroesophageal reflux disease) ?K21.9 - Gastro-esophageal reflux disease without esophagitis (ICD-10) Hypertension ?I10 - Essential (primary) hypertension (ICD-10) Surgical History (Updated 03/25/23 @ 13:03 by Pancho Kim MD) Status post bilateral salpingo-oophorectomy ?Z90.722 - Acquired absence of ovaries, bilateral (ICD-10) Status post vaginal hysterectomy ?Z90.710 - Acquired absence of both cervix and uterus (ICD-10) Status post laparoscopic cholecystectomy ?Z90.49 - Acquired absence of other specified parts of digestive tract (ICD-10) Family History Mother Colon cancer Breast cancer High blood pressure Stroke Brother Colon cancer High blood pressure Leukemia Father Stroke Social History (Updated 03/25/23 @ 13:06 by Pancho Kim MD) Narrative: She lives with her and [facility]. 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 Occasionally drinks alcohol What is your current living situation?: I presently have a place to live Problems where you live: no known problems Problems where you live details: none In the past 12 months, utilities in danger of being shut off: no In past 12 months, lack of transportation kept you from medical appts, meetings, work, or getting things needed for daily living: no In the past 12 mos, have been you worried that your food would run out before you had money to buy more?: never true In the past 12 mos, the food you bought just didn't last and you didn't have money to buy more?: never true Highest level of school completed/degree received: Bachelor's degree Smoking Status: Never smoker Do you use any of these nicotine containing products: None How often do you have a drink containing alcohol: monthly or less How many standard drinks containing alcohol do you have on a typical day: 1 or 2 How often do you have six or more drinks on one occasion: Never AUDIT-C Alcohol total score: 1 Non-prescribed substance use: denies use Caffeine: Yes (rarely) How often does anyone, including family, friends and others, physically hurt you: never How often does anyone, including family, friends and others, insult or talk down to you: never How often does anyone, including family, friends and others, threaten you with harm: never How often does anyone, including family, friends and others, scream or curse at you: never service: No Exam Narrative: Exam Narrative: Constitutional: Appears well-developed and well-nourished. Alert. Uncomfortable but Conversant. Non toxic. HENT: Head: Atraumatic. Nose: Nose normal. Mouth/Throat: Oral mucosa is clear and moist. no trismus. Pharynx normal. Tonsils symmetric. No tonsillar enlargement, erythema, or exudate. Eyes: Conjunctivae normal. EOM normal. Pupils equal, round, and reactive to light. No scleral icterus. Neck: Normal range of motion. Neck supple. No tracheal deviation present. Cardiovascular: Normal rate, regular rhythm. No gallop. No friction rub. No murmur heard. Symmetric radial artery pulses Pulmonary/Chest: Effort normal. No stridor. No respiratory distress. No wheezes. No rales. No rhonchi . No tenderness. Abdominal: Soft. Moderate distension. No mass. Bowel sounds are hyperactive, tingling and rushing. Right upper quadrant> epigastric and left upper quadrant tenderness. No rebound. No guarding. Musculoskeletal: RUE: Normal range of motion. No tenderness. No deformity LUE: Normal range of motion. No tenderness. No deformity RLE: Normal range of motion. No edema. No tenderness. No deformity LLE: Normal range of motion. No edema. No tenderness. No deformity Neurological: Alert and oriented to person, place, and time. Normal strength. CN II-VII intact. No sensory deficit. GCS eye subscore is 4. GCS verbal subscore is 5. GCS motor subscore is 6. Normal coordination Skin: Skin is warm and dry. No rash noted. No pallor. Normal capillary refill. Psychiatric: Normal mood. Normal affect. Very polite. Const: Vital Signs, click to edit/add: Vital Signs - 24 hr 10/19/24 20:26 10/19/24 22:22 Temperature 97.3 F L 98.5 F Pulse Rate [Right Pulse Oximeter] 74 Respiratory Rate 21 Blood Pressure [Le ft Upper Arm] 131/69 Pulse Oximetry 98 Oxygen Delivery Me thod Room Air Course Course ED Course: Recheck-pain not improved after Toradol. Dilaudid ordered Reevaluation(s) Reevaluation #1: Recheck-CT scan confirms small bowel obstruction. Discussed clinical presentation, labs and CT findings with surgeon, Dr. Weston. She reviewed the CT images from home. She reviews with plan for admission for NG tube decompression, IV hydration, supportive care. No immediate surgical emergency Discussed with hospitalist, Dr. Victoria . She will accept for admission. NG tube was placed by nursing staff I reviewed the patient's portable chest x-ray. I saw that the tip of the tube was not in the stomach but instead was in the distal esophagus. I had the nurses advanced a 2 x 10 cm. We saw that the distal tip was just in the stomach but that the side port was not yet in the gastric lumen. We advanced the tube another 10 cm and 3rd portable chest x-ray confirmed that the tube was present with the distal and and the side port in the gastric lumen. Patient tolerated the NG tube placement without complications. Vital Signs Vital signs: Initial Vital Signs Temperature 97.3 F L 10/19/24 20:26 Temperature Source Temporal Artery Scan 10/19/24 20:26 Pulse Rate 74 10/19/24 20:26 Pulse Rhythm Regular 10/19/24 20:26 Pulse Strength 3+ Normal 10/19/24 20:26 Respiratory Rate 21 10/19/24 20:26 Blood Pressure 131/69 10/19/24 20:26 Blood Pressure Mean 89 10/19/24 20:26 Blood Pressure Position Sitting 10/19/24 20:26 Pulse Oximetry 98 10/19/24 20:26 Oxygen Delivery Method Room Air 10/19/24 20:26 Vital Signs Temperature 97.3 F L 10/19/24 20:26 Pulse Rate 74 10/19/24 20:26 Respiratory Rate 21 10/19/24 20:26 Blood Pressure 131/69 10/19/24 20:26 Pulse Oximetry 98 10/19/24 20:26 Oxygen Delivery Method Room Air 10/19/24 20:26 Temperature 98.5 F 10/19/24 22:22 Pulse Rate 74 10/19/24 20:26 Respiratory Rate 21 10/19/24 20:26 Blood Pressure 131/69 10/19/24 20:26 Pulse Oximetry 98 10/19/24 20:26 Oxygen Delivery Method Room Air 10/19/24 20:26 Medications Administered Medications: Generic Name Dose Route Start Last Admin Trade Name Freq PRN Reason Stop Dose Admin Hydromorphone HCl 0.5 mg 10/19/24 22:23 10/19/24 22:31 Hydromorphone 0.5 Mg/0.5 Ml Inj IVP 0.5 mg Q1H PRN Administration Pain Discontinued Medications Generic Name Dose Route Start Last Admin Trade Name Frebakari PRN Reason Stop Dose Admin Sodium Chloride 1,000 mls @ 1,000 mls/hr 10/19/24 21:15 10/19/24 22:13 0.9 % Sodium Chloride 1000 Ml IV 10/19/24 22:14 Infused .Q1H NINA Infusion Ketorolac Tromethamine 15 mg 10/19/24 21:01 10/19/24 21:17 Ketorolac 15 Mg/Ml Inj IVP 10/19/24 21:02 15 mg ONCE ONE Administration Ondansetron HCl 4 mg 10/19/24 21:01 10/19/24 21:11 Ondansetron 2 Mg/Ml Inj IVP 10/19/24 21:02 4 mg ONCE ONE Administration Medical Decision Making MDM Narrative Medical decision making narrative: 79-year-old female presenting to the ER today with abdominal pain and nausea and vomiting. She has had 5 previous bowel obstructions and the symptoms are reminiscent of his previous obstructions. Differential is broad including hepatitis, pancreatitis, retained common bile duct stone, transverse colitis, abdominal aortic aneurysm, diverticulitis, perforation, abscess, among others. Laboratory workup is generally reassuring. CT scan does show evidence for small bowel obstruction with a transition point in the pelvis. Notably, radiologist comments on very subtle bowel wall thickening of the bowel just around the transition point. At this point white count is normal, lactic is normal, and the patient does not have a peritoneal abdominal exam. At this point this does not appear to represent active emergent bowel ischemia requiring immediate laparotomy. However patient will be hospitalized, NG tube decompression, careful monitoring. If symptoms fail to improve may need operation. Urinalysis weakly abnormal with 5-10 white cells , positive nitrite, but also moderate bacteria. Patient does not have any clear UTI symptoms. LFTs including AST and alkaline phosphatase are mildly abnormal but similar to prior. Bilirubin, ALT, lipase are normal. Kidney function electrolytes are normal. Mild hyponatremia with a sodium of 133 is down slightly from prior measurement in February 2023 when sodium was 135. Lab Data Labs: Lab Results 10/19/24 10/19/24 10/19/24 Range/Units 21:00 21:07 22:05 WBC 10.32 (4.50-11.00) K/uL RBC 4.00 (4.00-5.20) m/uL Hgb 11.8 L (12.0-16.0) gm/dL Hct 36.4 (33.0-51.0) % MCV 91 (80-100) fL MCH 30 (26-34) pg MCHC 32 (32-36) gm/dL RDW Coeff of Jose Miguel 15.8 H (11.5-15.5) % Plt Count 293 (140-440) K/uL Neut % (Auto) 80.0 H (42.0-72.0) % Lymph % (Auto) 11.3 L (20-44) % [place] % (Auto) 6.7 (0.0-11.0) % Eos % (Auto) 1.6 (0.0-7.0) % Baso % (Auto) 0.3 (0.0-3.0) % Neut # (Auto) 8.30 H (1.7-7.0) K/uL Lymph # (Auto) 1.20 (0.90-2.90) K/uL [place] # (Auto) 0.70 (0.00-0.90) K/UL Eos # (Auto) 0.17 (0.00-0.50) K/uL Baso # (Auto) 0.03 (0.00-0.30) K/uL Abs Immat Gran (auto) 0.01 (0.00-0.30) K/uL Imm/Tot Granulo (auto) 0.1 % Sodium 133 L (135-149) mmol/L Potassium 4.2 (3.6-5.1) mmol/L Chloride 103 (96-114) mmol/L Carbon Dioxide 20 (20-32) mmol/L Anion Gap 10 (7-15) mEq/L BUN 23 (7-30) mg/dL Creatinine 0.8 (0.5-1.5) mg/dL Estimated Creat Clear 38.35 Estimated GFR 75 ml/min Glucose 131 H (60-115) mg/dL Lactate 1.0 (0.5-1.9) mmol/L Calcium 10.3 (8.4-10.6) mg/dL Total Bilirubin 0.8 (0.1-1.5) mg/dL AST 44 H (12-35) U/L ALT 32 (4-35) U/L Alkaline Phosphatase 189 H (40-150) U/L Total Protein 8.1 (6.0-8.3) g/dL Albumin 4.9 (3.3-5.0) g/dL Lipase 108 (23-300) U/L Urine Color Yellow (Yellow) Urine Appearance Turbid A (Clear) Urine pH 5.5 (5.0-8.5) Ur Specific [place] <= 1.005 (1.000-1.030) Urine Protein Negative (Negative) Urine Glucose (UA) Negative (Negative) Urine Ketones Negative (Negative) Urine Blood Negative (Negative) Urine Nitrite Positive A (Negative) Urine Bilirubin Negative (Negative) Urine Urobilinogen 0.2 (0.2-1.0) Ur Leukocyte Esterase Trace A (Negative) Urine RBC 2-5 A (0-2) Urine WBC 5-10 A (0-5) Ur Squamous Epith Cells Few (None-Few) Amorphous Sediment Few A (None) Urine Bacteria Moderate A (None) POC Creatinine 0.9 (0.6-1.3) mg/dl Imaging Data CT scan - abdomen: Attestation: I have reviewed the pertinent imaging results. Radiologist's impression: IMPRESSION: 1. Small-bowel obstruction with transition point noted within the lower pelvis. Mild small bowel wall thickening near the site of transition may be reactive/reflect underlying enteritis, however developing ischemia is not definitively excluded in the appropriate clinical context. 2. Small volume pelvic ascites. 3. Cystocele. Discharge Plan Discharge Clinical Impression: Small bowel obstruction
--- OUTSIDE RECORDS SUMMARY | 2024-10-19 20:25 | XMS_ITS | Clinical Summary ---
Author Organization [facility] Address [address] [place] [address] Care Team Providers Care Driller'S Assistant Name Role Phone Elsewhere, Pcp Primary Care Provider Unavailabl e Source Comments Patient records contain information from all sites at [facility]. For routine questions regarding patient records, call [phone] during business hours, M-F 8:00 AM - 5:00 PM Central Time. Record requests for emergency care only can be directed to [phone] at any time.[facility] Allergies Active Allergy Reactions Criticality Noted Date [...] 02/09/2023 Cellulitis Finger Left 01/20/2023 Cellulitis 01/19/2023 Family History Medical History Relation Name Comments [...] by your partner or ex-partner? No 01/07/2022 Hunger Vital Sign Answer Date Recorded Within [...] things needed for daily living? No 02/05/2023 Housing Stability Answer Date Recorded What is your living situation today? I have a [facility] place to live 02/05/2023 Education Answer Date Recorded What is the highest level of school you have completed or the highest degree you have received? 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 WORKER Gender Identity Female 01/07/2022 9:56 AM CDT Sexual Orientation Straight 01/07/2022 9: 56 AM CDT Last Filed Vital Signs Vital Sign Reading Time Taken Comments Blood Pressure 144/72 03/15/2023 1:10 PM DRUG DEPARTMENT WORKER Pulse 85 03/15/2023 1:10 PM DRUG DEPARTMENT WORKER Temperature 36.5 C (97.7 F) 03/15/2023 7:23 AM DRUG DEPARTMENT WORKER Respiratory Rate 12 03/15/2023 1:10 PM DRUG DEPARTMENT WORKER Oxygen Saturation 99% 03/15/2023 1:10 PM DRUG DEPARTMENT WORKER Inhaled Oxygen Concentration - - Weight 70 kg (154 lb 5.2 oz) 03/15/2023 7:17 AM DRUG DEPARTMENT WORKER Height 160 cm (5' 3) 01/19/2023 6:57 PM CDT Body Mass Index 27.34 01/19/2023 6:57 PM CDT Plan of Treatment Health Maintenance Due Date Last Done Comments Hepatitis C Screening 1945 COVID-19 Vaccine ( season) 2023 04/20/2023, 12/25/2021, 07/15/2021, Additional history exists Depression Screening (Annual PHQ-2) 03/30/2024 Fall Risk Screen (Annual) 03/30/2024 Influenza Vaccine (#1) 2024 3, 12/11/2021, 01/09/2021, Additional history exists DTaP,Tdap,and Td Vaccines (3 - Td or Tdap) 07/22/2032 07/22/2022, 12/23/2011 Zoster Vaccines Completed 03/24/2019, 09/28, 03/04/2007 Pneumococcal vaccine (50+ years) Completed 04/28/2022, 02/01/2014, 12/23/2011 RSV vaccine - (32-36 weeks) or 60+ years Completed 03/11/2023 Mammogram Discontinued 04/10/2023, 03/30, 04/08/2022, Additional history exists IPV Vaccines Aged Out No longer eligi ble based on patient's age to complete this topic Insurance MEDICARE [facility] Care Teams Driller'S Assistant Relationship Specialty Start Date End Date Elsewhere, Pcp PCP - General Internal Medicine 01/19/23
--- OUTSIDE RECORDS SUMMARY | 2024-10-19 20:25 | XMS_ITS | Clinical Summary ---
Author Organization [facility] Address [address] [place] [address] Care Team Providers Care Rental Management Trainee Name Role Phone Vishnu Whittaker MD Primary Care Provider Allergies Active Allergy Reactions Criticality Noted Date Comments Lisinopril Cough 11/24/2006 Medications calcium carbonate-vitamin D3, 600 mg-400 unit, (CALCIUM WITH VITAMIN D) tablet Calcium 600mg/Vit D 800 IU - two tablets orally once daily 1 Active cholecalciferol (VITAMIN D-3) 2,000 unit capsule Take 1 capsule by mouth once daily. 0 3 Active sennosides (SENNA) 8.6 mg tablet Daily as needed Active ondansetron (ZOFRAN ODT) 4 mg disintegrating tabletIndications:N ausea DISSOLVE ONE TABLET (4 MG) ON THE TONGUE EVERY 8 HOURS NEEDED FOR NAUSEA/VOMIT ING 30 Tablet 2 4 Active omeprazole (PRILOSEC) 20 mg Delayed-Release capsuleIndications: GERD without esophagitis Take 1 Capsule (20 mg) by mouth once daily before a meal. 90 Capsule 3 5 Active potassium chloride (KLOR-CON M20) 20 mEq extended-release tablet (part/cryst)Indicat ions:Essential hypertension Take 1 Tablet (20 mEq) by mouth once daily with a meal. 90 Tablet 3 5 Active propranolol ER (INDERAL LA) 120 mg Cs24 Sustained-Release capsuleIndications: Other migraine without status migrainosus, not intractable TAKE ONE CAPSULE BY MOUTH TWICE A DAY 180 Capsule 3 5 Active rosuvastatin (Crestor) 40 mg tabletIndications:M ixed hyperlipidemia Take 1 Tablet (40 mg) by mouth at bedtime. 90 Tablet 3 5 Active triamterene-hydroch lorothiazide, 37.5-25 mg, (DYAZIDE) 37.5-25 mg capsuleIndications: Essential hypertension Take 1 Capsule by mouth once daily in the morning. 90 Capsule 3 5 Active lidocaine 5 % topical patchIndications:As ymptomatic postmenopausal state Apply on dry, clean, hairless skin. Apply 1 patch to painful area of skin for up to to 12 hours within 24 hour period. 30 Patch 5 5 Active amLODIPine 5 mg tabletIndications:E ssential hypertension Take 1 Tablet (5 mg) by mouth once daily. 90 Tablet 3 5 Active olmesartan 20 mg tabletIndications:E ssential hypertension Take 0.5 Tablets (10 mg) by mouth once daily. 45 Tablet 3 5 Active Active Problems Problem Noted Date Diagnosed Date Osteoporosis 03/30/2024 Concussion with no loss of consciousness 023 [...] Encounters Date Type Department Care Team Description 08/31/2024 10:55 AM CDT Office Visit [facility] [address] [facility] [address] Vishnu Whittaker MD Preoperative Exam (DOS: 09/27/2024, bilateral eyelid surgery, Dr. Emerson, [facility]) 08/31/2024 Travel 08/26/2024 Travel 08/25/2024 11:15 AM CDT Orders Only [facility] [address] [facility] [place] [address] Lab, [facility] 08/25/2024 Travel 08/20/2024 Travel 08/11/2024 8:05 AM CDT Office Visit [facility] [address] [facility] [place] [address] Vishnu Whittaker MD Leg Swelling (Bilateral lower leg swelling and stinging, got worse about a week ago) 08/10/2024 Travel from Last 3 Months Immunizations Immunization Administration Dates Next Due AMB Influenza, IIV3 (Age >=3 years)(Flu Clinic Only) 12/17/2011,01/06/2011,01/16/2010,01/01,01/19/2008 AMB Influenza, IIV4 PF (=>6 mos Flulaval,Fluzone Fluarix)(Flu Clinic Only) 12/20/2019,01/03/2016 COVID-19 VACCINE SPIKEVAX (M ODERNA 50MCG/0.5ML) 12YO+ PFS 04/20/2023 COVID-19 vaccine ([employer] NT[employer] 30mcg/0.3mL) 12YO+ BIVALENT PF, MDV 12/25/2021 COVID-19 vaccine ([employer] 30mcg/0.3mL) 12YO+ LANE-SUCROSE PF, MDV 07/15/2021 [...] Answer Date Recorded PHQ-2 TOTAL SCORE 0 05/13/2024 Social Connections Answer Date Recorded Do you often feel lonely or isolated from those around you? 0 08/26/2024 Financial Resource Strain Answer Date R ecorded Difficulty of Paying Living Expenses 3 08/10/2024 Difficulty of Paying Living Expenses Not on file 08/10/2024 Food Insecurity Answer Date Recorded Do you worry your food will run out before you are able to buy more? 1 08/26/2024 Transportation Needs Answer Date Record ed Does lack of transportation keep you from medica l appointments? 1 08/26/2024 Does lack of transportation keep you from work, meetings or getting things that you need? 1 08/26/2024 Housing Stability Answer Date Recorded What is your housing situation today? 1 08/26/2024 Utilities Answer Date Recorded Do you have trouble paying f or utilities (for example, heat, electricity, water, phone)? 1 08/26/2024 Comments No Sex and Gender Information Value Date Recorded Sex Assigned at Female 03/10/2020 9:02 AM CUSTOMER QUALITY SPECIALIST Legal Sex Female 6:29 AM CUSTOMER QUALITY SPECIALIST Gender Identity Female 03/10/2020 9:02 AM CUSTOMER QUALITY SPECIALIST Sexual Orientation Straight 03/10/2020 9: 02 AM CUSTOMER QUALITY SPECIALIST Occupation Industry Job Start Date Job End Date retired Not on file Not on file Not on file Obstetrics History Para Term AB IAB SAB Ectopic Multiple Livin g Live Births 2 2 2 Date Outcome GA Total Labor Labor/2nd/3rd Weight Sex Type Anes PTL Dagmar A1 A5 Name Clin Term Term Last Filed Vital Signs Vital Sign Reading Time Taken Comments Blood Pressure 135/69 08/31/2024 10:47 AM CDT Pulse 68 08/31/2024 10:47 AM CDT Temperature 36.9 C (98.4 F) 01/02/2020 7:59 AM CDT Respiratory Rate 20 12/20/2019 12:50 PM CDT Oxygen Saturation 98% 08/31/2024 10:47 AM CDT Inhaled Oxygen Concentration - - Weight 70.1 kg (154 lb 9.6 oz) 08/31/2024 10:47 AM CDT Height 153 cm (5' 0.24) 08/31/2024 10:47 AM CDT Body Mass Index 29.96 08/31/2024 10:47 AM CDT Plan of Treatment Health Maintenance Due Date Last Done Comments Influenza Vaccine (#1) 2024 , 03/11/2023, 12/11/2021, Additional history exists Depression screening for age 12+ 05/13/2025 05/13/2024, 04/30/2023, 04/30/2023, Additional history exists Medicare Wellness for age 65+ 05/14/2025 05/13/2024, 04/30/2023, 04/28/2022, Additional history exists BMI (ht and wt on same day) for age 18+ 08/31/2025 08/31/2024, 05/13/2024, 12/29/2023, Additional history exists Tetanus booster 07/22/2032 07/22/2022, 11/29, 07/14/2003 Hepatitis C screening for age 18-79 Completed 04/07/2017 Zoster (shingles) series for age 50+ Completed 03/24/2019, 10/23/2018, 03/04/2007 Pneumococcal series for age 50+ Completed 04/28/2022, 02/01/2014, 12/23/2011 RSV vaccine for adults or Completed 03/11/2023 DEXA/DXA scan for age 65+ Completed 2024, 04/17/2020, 04/07/2017, Additional history exists COVID-19 vaccine series Completed 08/13/19, 01/01/2024, 09/28/2023, Additional history exists Hepatitis B series for 19+ Aged Out N o longer eligible based on patient's age to complete this topic Procedures Procedure Name Priority Date/Time Associated Diagnosis Comments BASIC METABOLIC PANEL Routine 08/25/2024 11:10 AM CDT Essential hypertension XR DXA BONE DENSITY 1 SITE AXIAL AND 1 SITE PERIPHERAL Routine 05/19/2024 9:10 AM CUSTOMER QUALITY SPECIALIST Asymptomatic postmenopausal state ANTI HCV Routine 04/07/2017 1:24 PM CUSTOMER QUALITY SPECIALIST Need for hepatitis C screening test from Last 3 Months or Most Recently Relevant to Health Maintenance Results * BASIC METABOLIC PANEL (08/25/2024 11:10 AM CDT) GLUCOSE 99 65 - 99 mg/dL [facility] Comment: Fasting reference interval UREA NITROGEN (BUN) 17 7 - 25 mg/dL [facility] CREATININE 0.80 0.60 - 1.00 mg/dL [facility] EGFR 76 > OR = 60 mL/min/1. 73m2 [facility] BUN/CREATININE RATIO SEE NOTE: 6 - 22 (calc) [facility] Comment: Not Reported: BUN and Creatinine are within reference range. SODIUM 138 135 - 146 mmol/L [facility] POTASSIUM 4.3 3.5 - 5.3 mmol/L [facility] CHLORIDE 102 98 - 110 mmol/L [facility] CARBON DIOXIDE 24 20 - 32 mmol/L [facility] ELECTROLYTE BALANCE 12 7 - 17 mmol/L (calc) [facility] CALCIUM 9.9 8.6 - 10.4 mg/dL [facility] Blood BLOOD SPECIMEN / Unknown 08/25/2024 11:10 AM CDT 08/25/2024 11:10 AM CDT Vishnu Whittaker MD CHEMISTRY Final Result Collect[facility] [address] [place] [address], [facility] [address] [place] [address] * (ABNORMAL) XR DXA BONE DENSITY 1 SITE AXIAL AND 1 SITE PERIPHERAL (05/19/2024 9:10 AM CUSTOMER QUALITY SPECIALIST) Anatomical Region Laterality Modality LUMBAR SPINE Other Impressions 05/24/2024 2:25 PM CUSTOMER QUALITY SPECIALIST Osteoporosis. RECOMMENDATIONS: The National Osteoporosis Foundation recommends pharmacologic treatment for patients with T-scores of -2.5 or less, patients with prior history of fragility fractures, or patients with 10-year probability of greater than 3% at hips or greater than 20% of suffering major osteoporotic fractures. Recommend continued optimization of calcium and vitamin D intake through dietary means and/or supplementation and regular exercise. Consider pharmacologic therapy for osteoporosis. Follow-up bone density reading in 2 years if therapy initiated to assess therapeutic efficacy. Nicolasa Eisenberg PA-C [facility] 05/24/2024 Narrative 05/24/2024 2:25 PM CUSTOMER QUALITY SPECIALIST For Patients: Results are automatically released to your [facility] (clickTRUE) account once available, in compliance with federal regulations. This means that you may see your results before your provider has had a chance to review them. Please allow 2-3 business days for your provider to comment on the results. XR DXA Bone Mineral Density (BMD) EXAM LOCATION: [facility] [address] [facility] [address] PATIENT NAME: Radha Kelly DATE OF : 1945 EXAM DATE: 05/19/2024 REQUESTING PROVIDER: Vishnu Whittaker MD GENDER AT : female HEIGHT: 5' 0.24 (05/13/2024) WEIGHT: 154 lb (05/13/2024) MENOPAUSAL STATUS: Postmenopausal RACE/ETHNICITY: White RISK FACTORS: Family History of Hip Fracture (parental) and White Race CURRENT MEDICATION FOR BONE LOSS: NONE INDICATION: Asymptomatic postmenopausal state COMPARISON DATE(S): 2020 DXA scans are compared to prior studies for a patient only when the two (or more) studies were performed on the same scanner. It is not possible to compare data generated on one scanner to data from another because there are not standards in DXA equipment. This applies even if the two scanners are made by the same watch assembler. PROCEDURE: Dual-energy x-ray absorptiometry performed with routine technique. Reporting is completed in the form of a T-score. The T-score represents the standard deviation from peak bone mass based on young healthy adult. A Z-score is used for diagnosis in premenopausal women, and for men under the age of 50. FINDINGS: RESULTS FEMUR Left femoral neck BMD: 0.742 g/cm2 T-Score: - 2.1 Z-Score: - 0.2 Change from prior in 2020: Decrease 25.0%. Right femoral neck BMD: 0.897 g/cm2 T-Score: - 1.0 Z-Score: + 0.9 Change from prior in 2020: Decrease 5.0%. Left hip BMD: 0.939 g/cm2 T-Score: - 0.5 Z-Score: + 1.2 Change from prior in 2020: Decrease 9.1%. Right hip BMD: 0.910 g/cm2 T-Score: - 0.8 Z-Score: + 1.0 Change from prior in 2020: Decrease 6.1%. RESULT FOREARM Left Forearm distal radius BMD: 0.465 g/cm2 T-Score: - 3.5 Z-Score: - 1.0 Change from prior in 2020: Decrease 13.9%. WHO criteria: Normal: T-score at or above -1 SD Osteopenia: T-score between -1.1 and -2.4 SD Osteoporosis: T-score at or below -2.5 SD FRAX RISK CALCULATION (USED FOR OSTEOPENIA ONLY): 10-year probability of major osteoporotic fracture: 27.6%. 10-year probability of hip fracture: 17.5%. us Vishnu Whittaker MD DEXA Final Result * ANTI HCV [[id number]] (04/07/2017 1:24 PM CUSTOMER QUALITY SPECIALIST) HEPATITIS C ANTIBODY Non-Reacti ve Non-Reacti ve 04/07/2017 8:06 PM CUSTOMER QUALITY SPECIALIST [facility] Blood BLOOD SPECIMEN / Unknown Venipuncture / Unknown 04/07/2017 1:24 PM CUSTOMER QUALITY SPECIALIST 04/07/2017 1:24 PM CUSTOMER QUALITY SPECIALIST Narrative [facility] - 04/07/2017 8:06 PM CUSTOMER QUALITY SPECIALIST Antibodies to HCV not detected; does not exclude the possibility of exposure to HCV. Vishnu Whittaker MD SEND OUTS Final Result [facility] 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
[2024-10-19 20:26] VITALS: BP 131/69; PULSE 74; RESP 21; TEMP 36.3; O2SAT 98; BMI 27.5
--- NOTE | 2024-10-19 21:01 | CRLHL7_ITS ---
For Patients: As a result of the Century Cures Act, medical imaging exams and procedure reports are released immediately into your electronic medical record. You may view this report before your referring provider. If you have questions, please contact your health care provider. INDICATION: Abdominal pain. Concern for obstruction. TECHNIQUE: CT abdomen and pelvis acquired with 76 cc Isovue 370 IV contrast. COMPARISON: CT abdomen pelvis 02/25/2021. FINDINGS: Lower chest: Left lung base calcified granuloma. Bibasilar atelectasis/scarring. Left-sided Bochdalek hernia. Liver: Unremarkable. Gallbladder and bile ducts: Cholecystectomy with stable dilatation of the common bile duct. Pancreas: Unremarkable. Spleen: Calcified granulomas. Adrenal glands: Unremarkable. Kidneys: Right renal cyst. No hydronephrosis or hydroureter. No obstructing calculi. GI tract: Small hiatal hernia. Multiple loops of dilated small bowel containing air-fluid levels, measuring up to 4.0 cm with abrupt transition to collapsed small bowel loops within the lower pelvis. There is mild small bowel wall thickening near the site of transition. No pneumatosis. Vasculature: Atherosclerotic calcifications. No abdominal aortic aneurysm. Grossly patent vasculature. Lymph nodes: No suspicious lymphadenopathy. Peritoneum/Abdominal Wall: Small volume pelvic ascites. No pneumoperitoneum. No acute abdominal wall abnormality. Pelvis: Cystocele. No suspicious adnexal mass. Bones: No acute abnormality. IMPRESSION: 1. Small-bowel obstruction with transition point noted within the lower pelvis. Mild small bowel wall thickening near the site of transition may be reactive/reflect underlying enteritis, however developing ischemia is not definitively excluded in the appropriate clinical context. 2. Small volume pelvic ascites. 3. Cystocele. Please note that all CT scans at this facility use dose modulation, iterative reconstruction, and/or weight-based dosing when appropriate to reduce radiation dose to as low as reasonably achievable. Dictated by Andrés Perez MD @ 10/19/2024 10:06:07 PM (Electronically Signed)
[2024-10-19 21:09] LABS: Lactate* 1.0 mmol/L (0.5-1.9)
[2024-10-19 21:11] LABS: Creatinine, Point-of-Care* 0.9 mg/dl (0.6-1.3)
[2024-10-19] MEDS: ONDANSETRON 2 MG/ML inj 4 MG IVP (21:11)
[2024-10-19 21:13] LABS: Hematocrit 36.4 % (33.0-51.0); Hemoglobin* 11.8 gm/dL (12.0-16.0); Immature Granulocytes Abs Auto 0.01 K/uL (0.00-0.30); Immature Granulocytes Pct Auto 0.1 %; Mean Corpuscular HGB Conc 32 gm/dL (32-36); Mean Corpuscular Hemoglobin 30 pg (26-34); Mean Corpuscular Volume 91 fL (80-100); RDW Coefficient of Variation % 15.8 % (11.5-15.5); Red Blood Count 4.00 m/uL (4.00-5.20); White Blood Count* 10.32 K/uL (4.50-11.00)
[2024-10-19 21:16] LABS: Lymphocytes Absolute Auto 1.20 K/uL (0.90-2.90); Slide Review Reflex No
[2024-10-19 21:27] LABS: Albumin* 4.9 g/dL (3.3-5.0); Chloride* 103 mmol/L (96-114)
[2024-10-19 21:28] LABS: Potassium* 4.2 mmol/L (3.6-5.1); Sodium* 133 mmol/L (135-149)
[2024-10-19 21:30] LABS: Alanine Aminotransferase* 32 U/L (4-35); Alkaline Phosphatase* 189 U/L (40-150); Anion Gap 10 mEq/L (7-15); Aspartate Amino Transferase* 44 U/L (12-35); Bilirubin Total* 0.8 mg/dL (0.1-1.5); Blood Urea Nitrogen* 23 mg/dL (7-30); Carbon Dioxide* 20 mmol/L (20-32); Creatinine* 0.8 mg/dL (0.5-1.5); Est. Creatinine Clearance* 38.35; Estimated Glomerular Filt Rate 75 ml/min; Total Protein* 8.1 g/dL (6.0-8.3)
[2024-10-19 21:31] LABS: Calcium* 10.3 mg/dL (8.4-10.6); Glucose* 131 mg/dL (60-115)
[2024-10-19 22:10] LABS: Appearance Urine Turbid (Clear)
[2024-10-19 22:22] VITALS: TEMP 36.9
--- NOTE | 2024-10-19 22:47 | CRLHL7_ITS ---
For Patients: As a result of the Century Cures Act, medical imaging exams and procedure reports are released immediately into your electronic medical record. You may view this report before your referring provider. If you have questions, please contact your health care provider. Indication: Check NG placement. Technique: Abdomen 3 view. Comparison: None. Findings/Impression: On the 3rd image, the enteric tube tip has been advanced to the mid/distal stomach in appropriate position. Nonobstructive bowel gas pattern. No evidence for free air. Cholecystectomy clips. The lung bases are clear. Degenerative changes and scoliotic curvature the lumbar spine. Excreted IV contrast within the renal collecting systems and bladder. Dictated by Billy Sosa MD @ 10/20/2024 12:06:39 AM (Electronically Signed)
--- NOTE | 2024-10-19 22:59 | PM.IMHP1 ---
Assessment and Plan Assessment and plan (1) Small bowel obstruction: Problem comment: -history of multiple small-bowel obstructions in the past and none of them needed surgical intervention. - CT showed: Small-bowel obstruction with transition point noted within the lower pelvis. Mild small bowel wall thickening near the site of transition may be reactive/reflect underlying enteritis, however developing ischemia is not definitively excluded in the appropriate clinical context. -WBCs 10, lactic acid was within normal. -Dr Villaseñor was contacted by ED and she recs NG tube, NPO & IVF. -pain management Status: Acute (2) Hypertension: Problem comment: on amlodipine, BB, ARB and triamterene/HCTZ Status: Acute (3) Hyperlipidemia: Problem comment: on a statin Status: Acute (4) GERD (gastroesophageal reflux disease): Problem comment: on a PPI Status: Acute Total Time Spent Total Time Spent: Time spent: Today I spent 75 minutes seeing the patient, discussing the patient with ER staff, reviewing Expanse and EPIC notes/diagnostics, discussing the care plan with our care time that includes social work, PT/OT, pharmacy, RT, usp and documenting my impressions and plan in the medical record. Hospitalist- H&P: HPI History of Present Illness Date Seen: 10/19/24 Chief complaint: stomach pain, poss obstructed bowl Narrative: Radha Kelly is a 79 year old female with past medical history of Hypertension, GERD, hyperlipidemia and history of multiple small-bowel obstructions in the past and none of them needed surgical intervention. Patient started to have a RUQ pain around 3:00 p.m. associated with nausea but no vomiting. Patient mentioned that she had 2 small bowel movements today and yesterday. She has hx of prior Sx (laparoscopic cholecystectomy, vaginal hysterectomy and laparoscopic salpingo oophorectomy). CT showed: Small-bowel obstruction with transition point noted within the lower pelvis. Mild small bowel wall thickening near the site of transition may be reactive/reflect underlying enteritis, however developing ischemia is not definitively excluded in the appropriate clinical context. WBCs 10, lactic acid was within normal. Dr Villaseñor was contacted by ED and she recs NG tube, NPO & IVF. Review of Systems Status of ROS: Reports: 6 or more systems reviewed and unremarkable except as noted in History and below Medical Decision Making Medical Decision Making Has patient completed a Health Care Directive: Yes PFSH PFSH Medical History (Updated 10/19/24 @ 23:30 by Billy Bruno MD) Septic arthritis of interphalangeal joint of finger ?M00.9 - Pyogenic arthritis, unspecified (ICD-10) Small bowel obstruction ?K56.609 - Unspecified intestinal obstruction, unspecified as to partial versus complete obstruction (ICD-10) Hyperlipidemia ?E78.5 - Hyperlipidemia, unspecified (ICD-10) GERD (gastroesophageal reflux disease) ?K21.9 - Gastro-esophageal reflux disease without esophagitis (ICD-10) Hypertension ?I10 - Essential (primary) hypertension (ICD-10) Surgical History (Updated 03/25/23 @ 13:03 by Pancho Kim MD) Status post bilateral salpingo-oophorectomy ?Z90.722 - Acquired absence of ovaries, bilateral (ICD-10) Status post vaginal hysterectomy ?Z90.710 - Acquired absence of both cervix and uterus (ICD-10) Status post laparoscopic cholecystectomy ?Z90.49 - Acquired absence of other specified parts of digestive tract (ICD-10) Family History Mother Colon cancer Breast cancer High blood pressure Stroke Brother Colon cancer High blood pressure Leukemia Father Stroke Social History (Updated 03/25/23 @ 13:06 by Pancho Kim MD) Narrative: She lives with her and [place]. 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 Occasionally drinks alcohol What is your current living situation?: I presently have a place to live Problems where you live: no known problems Problems where you live details: none In the past 12 months, utilities in danger of being shut off: no In past 12 months, lack of transportation kept you from medical appts, meetings, work, or getting things needed for daily living: no In the past 12 mos, have been you worried that your food would run out before you had money to buy more?: never true In the past 12 mos, the food you bought just didn't last and you didn't have money to buy more?: never true Highest level of school completed/degree received: Bachelor's degree Smoking Status: Never smoker Do you use any of these nicotine containing products: None How often do you have a drink containing alcohol: monthly or less How many standard drinks containing alcohol do you have on a typical day: 1 or 2 How often do you have six or more drinks on one occasion: Never AUDIT-C Alcohol total score: 1 Non-prescribed substance use: denies use Caffeine: Yes (rarely) How often does anyone, including family, friends and others, physically hurt you: never How often does anyone, including family, friends and others, insult or talk down to you: never How often does anyone, including family, friends and others, threaten you with harm: never How often does anyone, including family, friends and others, scream or curse at you: never service: No Meds Home Medications and Allergies Home Medications ?Medication ?Instructions ?Recorded ?Confirmed ?Type amlodipine 5 mg tablet 5 mg PO DAILY 03/10/22 10/19/24 History omeprazole 20 mg capsule,delayed 20 mg PO DAILY 03/10/22 10/19/24 History release potassium chloride 20 mEq 20 meq PO DAILY 03/10/22 10/19/24 History tablet,extended release(part/cryst) propranolol 120 mg capsule,24 120 mg PO BID 03/10/22 10/19/24 History hr,extended release rosuvastatin 40 mg tablet 40 mg PO DAILY 03/10/22 10/19/24 History triamterene 37.5 1 cap PO DAILY 03/10/22 10/19/24 History mg-hydrochlorothiazide 25 mg capsule benzonatate 100 mg capsule 100 - 200 mg (1 - 2 x 100 mg) PO 07/22/23 07/22/23 Rx TID PRN cough #30 caps calcium 600 mg (as 2 tab PO DAILY 10/19/24 10/19/24 History carbonate)-vitamin D3 10 mcg (400 unit) tablet (Calcium 600 + D(3)) cholecalciferol (vitamin D3) 50 2,000 unit PO DAILY 10/19/24 10/19/24 History mcg (2,000 unit) capsule lidocaine 5 % topical patch 1 patch topical .prn 10/19/24 10/19/24 History olmesartan 20 mg tablet 20 mg PO DAILY 10/19/24 10/19/24 History ondansetron HCl 4 mg tablet 4 mg PO .prn 10/19/24 10/19/24 History sennosides 8.6 mg tablet 8.6 mg PO .prn 10/19/24 10/19/24 History (Black-Draught Lax-Senna) Allergies Allergy/AdvReac Type Severity Reaction Status Date / Time lisinopril Allergy Mild Cough Verified 10/19/24 20:36 Exam Narrative: Exam Narrative: Physical exam GENERAL: No acute distress. NG tube in. HEAD AND NECK: Atraumatic, normocephalic CARDIOVASCULAR: RRR. Normal S1, S2. No murmurs. RESPIRATORY: Clear to auscultation B/L. Good air entry B/L. No wheezes or rhonchi. GASTROINTESTINAL: Tender to palpation, RUQ. Soft. NEUROLOGY: Alert, awake PSYCH: Normal mood, normal affect. Const: Vital Signs, click to edit/add: Vital Signs - 24 hr 10/19/24 20:26 10/19/24 22:22 Temperature 97.3 F L 98.5 F Pulse Rate [Right Pulse Oximeter] 74 Respiratory Rate 21 Blood Pressure [Le ft Upper Arm] 131/69 Pulse Oximetry 98 Oxygen Delivery Me thod Room Air Hospitalist - H&P: Result Labs Labs: Short CBC 10/19/24 Range/Units 21:00 WBC 10.32 (4.50-11.00) K/uL Hgb 11.8 L (12.0-16.0) gm/dL Hct 36.4 (33.0-51.0) % Plt Count 293 (140-440) K/uL BMP 10/19/24 21:00 Sodium 133 L Potassium 4.2 Chloride 103 Carbon Dioxide 20 BUN 23 Creatinine 0.8 Glucose 131 H Calcium 10.3 Liver Function 10/19/24 Range/Units 21:00 Total Bilirubin 0.8 (0.1-1.5) mg/dL AST 44 H (12-35) U/L ALT 32 (4-35) U/L Alkaline Phosphatase 189 H (40-150) U/L Albumin 4.9 (3.3-5.0) g/dL Urine 10/19/24 Range/Units 22:05 Urine Color Yellow (Yellow) Urine Appearance Turbid A (Clear) Urine pH 5.5 (5.0-8.5) Ur Specific [place] <= 1.005 (1.000-1.030) Urine Protein Negative (Negative) Urine Glucose (UA) Negative (Negative) Imaging CT scan - abdomen: Radiologist's impression: TECHNIQUE: CT abdomen and pelvis acquired with 76 cc Isovue 370 IV contrast. COMPARISON: CT abdomen pelvis 02/25/2021. FINDINGS: Lower chest: Left lung base calcified granuloma. Bibasilar atelectasis/scarring. Left-sided Bochdalek hernia. Liver: Unremarkable. Gallbladder and bile ducts: Cholecystectomy with stable dilatation of the common bile duct. Pancreas: Unremarkable. Spleen: Calcified granulomas. Adrenal glands: Unremarkable. Kidneys: Right renal cyst. No hydronephrosis or hydroureter. No obstructing calculi. GI tract: Small hiatal hernia. Multiple loops of dilated small bowel containing air-fluid levels, measuring up to 4.0 cm with abrupt transition to collapsed small bowel loops within the lower pelvis. There is mild small bowel wall thickening near the site of transition. No pneumatosis. Vasculature: Atherosclerotic calcifications. No abdominal aortic aneurysm. Grossly patent vasculature. Lymph nodes: No suspicious lymphadenopathy. Peritoneum/Abdominal Wall: Small volume pelvic ascites. No pneumoperitoneum. No acute abdominal wall abnormality. Pelvis: Cystocele. No suspicious adnexal mass. Bones: No acute abnormality. IMPRESSION: 1. Small-bowel obstruction with transition point noted within the lower pelvis. Mild small bowel wall thickening near the site of transition may be reactive/reflect underlying enteritis, however developing ischemia is not definitively excluded in the appropriate clinical context. 2. Small volume pelvic ascites. 3. Cystocele. Please note that all CT scans at this facility use dose modulation, iterative reconstruction, and/or weight-based dosing when appropriate to reduce radiation dose to as low as reasonably achievable. Dictated by Andrés Perez MD @ 10/19/2024 10:06:07 PM
[2024-10-19 23:30] VITALS: BMI 28.1
[2024-10-19 23:47] VITALS: BP 133/72; PULSE 73; RESP 16; TEMP 36.7; O2SAT 95
[2024-10-20] VITALS (10 sets, daily range): BP systolic 143–159; BP diastolic 61–74; PULSE 69–97; RESP 16–20; TEMP 36.6–36.8; O2SAT 90–97
[2024-10-20] MEDS: ONDANSETRON 2 MG/ML inj 4 MG IVP ×4 (00:20→19:01)
[2024-10-20] MEDS: MORPHINE 4 MG/ML INJ IVP ×2 (00:23→04:07)
[2024-10-20 06:44] LABS: Hematocrit 31.7 % (33.0-51.0); Hemoglobin* 10.1 gm/dL (12.0-16.0); Mean Corpuscular HGB Conc 32 gm/dL (32-36); Mean Corpuscular Hemoglobin 30 pg (26-34); Mean Corpuscular Volume 93 fL (80-100); Red Blood Count 3.41 m/uL (4.00-5.20); White Blood Count* 3.91 K/uL (4.50-11.00)
[2024-10-20 06:45] LABS: Slide Review Reflex No
[2024-10-20 06:57] LABS: Albumin* 3.9 g/dL (3.3-5.0); Chloride* 107 mmol/L (96-114); Potassium* 3.4 mmol/L (3.6-5.1); Sodium* 134 mmol/L (135-149)
[2024-10-20 06:59] LABS: Alanine Aminotransferase* 153 U/L (4-35); Aspartate Amino Transferase* 441 U/L (12-35); Blood Urea Nitrogen* 18 mg/dL (7-30); Creatinine* 0.6 mg/dL (0.5-1.5); Est. Creatinine Clearance* 38.35; Estimated Glomerular Filt Rate 92 ml/min
[2024-10-20 07:00] LABS: Alkaline Phosphatase* 247 U/L (40-150); Anion Gap 5 mEq/L (7-15); Bilirubin Total* 1.4 mg/dL (0.1-1.5); Calcium* 8.9 mg/dL (8.4-10.6); Carbon Dioxide* 22 mmol/L (20-32); Glucose* 123 mg/dL (60-115); Total Protein* 6.5 g/dL (6.0-8.3)
--- NOTE | 2024-10-20 08:36 | PC.NURSE ---
Shift note ([id number]): Patient admitted at 2330. Pleasant, alert and oriented.?Given PRN Morphine and dilaudid for c/o?abdominal pain rated 7/10 and PRN Zofran for nausea. Had some ice chips, otherwise has been NPO since admission. Ambulates with stand by assist. NG tube slipped out to 30cm a short time after arriving to [facility]. NG was advanced with help of charge nurse. NG contents were green. There was?a small amount of bright red blood noted. NG contents dark brown at this time. Day shift hospitalist and charge nurse updated.?
[2024-10-20 08:37] LABS: Gamma Glutamyl Transpeptidase* 1128 U/L (8-55)
--- NOTE | 2024-10-20 09:29 | PM.GSCN ---
History of Present Illness Consult details Date Seen: 10/20/24 Consult date: 10/20/24 Narrative: 79-year-old female was admitted to the hospital with small-bowel obstruction and I was asked by Dr. Bruno to see her in consultation. patient states that yesterday in the evening she developed right upper quadrant abdominal pain. She initially did not have nausea, but subsequently developed nausea and her pain continued. She presented to emergency room. Patient had multiple previous small bowel obstructions and usually tries to start Zofran and clears to treat her small bowel obstruction. Patient was not passing gas. I personally reviewed her workup. Patient's WBC was found to be 10 and decreased to [address] showed multiple dilated loops of small bowel with possible transition point in the pelvis. Patient has a history of several small bowel obstructions in the past that were treated non operatively. Patient's last colonoscopy was in December of 2023 and was normal. NG tube was placed but it was difficult to place. A smaller caliber NG tube was placed in the emergency room. Patient has been vomiting around the NG tube. Her pain has improved some since her admission. Review of Systems Narrative: General: no fevers HENT: no problems swallowing CV: no shortness of breath Resp: no cough GI: No nausea, vomiting, abdominal pain : no dysuria, no increased urinary frequency, no hematuria Skin: no new rashes Musculoskeletal: no back pain Neuro: no muscle weakness Psyche: no depression, no anxiety [employer] [facility] Medical History Septic arthritis of interphalangeal joint of finger ?M00.9 - Pyogenic arthritis, unspecified (ICD-10) Small bowel obstruction ?K56.609 - Unspecified intestinal obstruction, unspecified as to partial versus complete obstruction (ICD-10) Hyperlipidemia ?E78.5 - Hyperlipidemia, unspecified (ICD-10) GERD (gastroesophageal reflux disease) ?K21.9 - Gastro-esophageal reflux disease without esophagitis (ICD-10) Hypertension ?I10 - Essential (primary) hypertension (ICD-10) Surgical History Status post bilateral salpingo-oophorectomy ?Z90.722 - Acquired absence of ovaries, bilateral (ICD-10) Status post vaginal hysterectomy ?Z90.710 - Acquired absence of both cervix and uterus (ICD-10) Status post laparoscopic cholecystectomy ?Z90.49 - Acquired absence of other specified parts of digestive tract (ICD-10) Family History Mother Colon cancer Breast cancer High blood pressure Stroke Brother Colon cancer High blood pressure Leukemia Father Stroke Social History Narrative: She lives with her and [facility]. 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 Occasionally drinks alcohol What is your current living situation?: I presently have a place to live Problems where you live: no known problems Problems where you live details: n/a In the past 12 months, utilities in danger of being shut off: no In past 12 months, lack of transportation kept you from medical appts, meetings, work, or getting things needed for daily living: no In the past 12 mos, have been you worried that your food would run out before you had money to buy more?: never true In the past 12 mos, the food you bought just didn't last and you didn't have money to buy more?: never true Highest level of school completed/degree received: Bachelor's degree Smoking Status: Never smoker Do you use any of these nicotine containing products: None How often do you have a drink containing alcohol: 2-4 times a month How many standard drinks containing alcohol do you have on a typical day: 1 or 2 How often do you have six or more drinks on one occasion: Never AUDIT-C Alcohol total score: 2 Non-prescribed substance use: denies use Caffeine: Yes (rarely) How often does anyone, including family, friends and others, physically hurt you: never How often does anyone, including family, friends and others, insult or talk down to you: never How often does anyone, including family, friends and others, threaten you with harm: never How often does anyone, including family, friends and others, scream or curse at you: never service: No Meds Home Medications and Allergies Home Medications ?Medication ?Instructions ?Recorded ?Confirmed ?Type amlodipine 5 mg tablet 5 mg PO DAILY 03/10/22 10/19/24 History omeprazole 20 mg capsule,delayed 20 mg PO DAILY 03/10/22 10/19/24 History release potassium chloride 20 mEq 20 meq PO DAILY 03/10/22 10/19/24 History tablet,extended release(part/cryst) propranolol 120 mg capsule,24 120 mg PO BID 03/10/22 10/19/24 History hr,extended release rosuvastatin 40 mg tablet 40 mg PO DAILY 03/10/22 10/19/24 History triamterene 37.5 1 cap PO DAILY 03/10/22 10/19/24 History mg-hydrochlorothiazide 25 mg capsule calcium 600 mg (as 2 tab PO DAILY 10/19/24 10/19/24 History carbonate)-vitamin D3 10 mcg (400 unit) tablet (Calcium 600 + D(3)) cholecalciferol (vitamin D3) 50 2,000 unit PO DAILY 10/19/24 10/19/24 History mcg (2,000 unit) capsule lidocaine 5 % topical patch 1 patch topical .prn 10/19/24 10/19/24 History olmesartan 20 mg tablet 20 mg PO DAILY 10/19/24 10/19/24 History ondansetron HCl 4 mg tablet 4 mg PO .prn 10/19/24 10/19/24 History sennosides 8.6 mg tablet 8.6 mg PO .prn 10/19/24 10/19/24 History (Black-Draught Lax-Senna) Allergies Allergy/AdvReac Type Severity Reaction Status Date / Time lisinopril Allergy Mild Cough Verified 10/19/24 20:36 Exam Narrative: Exam Narrative: General appearance: Alert, cooperative, and in no distress Pulmonary: Chest symmetric, lungs clear bilaterally Cardiovascular Heart: Regular rate and rhythm, S1, S2, no murmurs/rubs/gallops Gastrointestinal Abdominal: soft, Mildly distended, tender to palpation in the right upper quadrant with mild tenderness to percussion in the right upper quadrant, No tenderness to percussion anywhere else. Skin: Normal skin color, texture, and turgor. No rashes or lesions. Psychiatric: Alert, cooperative, normal affect. Const: Vital Signs, click to edit/add: Vital Signs - 24 hr 10/19/24 20:26 10/19/24 22:22 10/19/24 23:47 Temperature 97.3 F L 98.5 F 98.1 F Pulse Rate Pulse Rate [Pulse Oximeter] 73 Pulse Rate [Right Pulse Oximeter] 74 Respiratory Rate 21 16 Blood Pressure [Le ft Upper Arm] 131/69 Blood Pressure [Ri ght Arm] 133/72 Pulse Oximetry 98 95 Oxygen Delivery Va thod Room Air Room Air 10/20/24 00:02 10/20/24 02:18 10/20/24 04:51 Temperature 98.0 F Pulse Rate 69 Pulse Rate [Pulse Oximeter] 97 Pulse Rate [Right Pulse Oximeter] Respiratory Rate 18 Blood Pressure [Le ft Upper Arm] Blood Pressure [Ri ght Arm] 159/71 H Pulse Oximetry 95 97 Oxygen Delivery Va thod Room Air Room Air 10/20/24 07:50 Temperature 97.9 F Pulse Rate Pulse Rate [Pulse Oximeter] 70 Pulse Rate [Right Pulse Oximeter] Respiratory Rate 16 Blood Pressure [Le ft Upper Arm] Blood Pressure [Ri ght Arm] 143/62 H Pulse Oximetry 94 Oxygen Delivery Va thod Room Air Results Labs Labs: Abnormal lab results 10/19/24 10/19/24 10/20/24 Range/Units 21:00 22:05 05:56 WBC 3.91 L (4.50-11.00) K/uL RBC 3.41 L (4.00-5.20) m/uL Hgb 11.8 L 10.1 L (12.0-16.0) gm/dL Hct 31.7 L (33.0-51.0) % RDW Coeff of Jose Miguel 15.8 H (11.5-15.5) % Neut % (Auto) 80.0 H (42.0-72.0) % Lymph % (Auto) 11.3 L (20-44) % Neut # (Auto) 8.30 H (1.7-7.0) K/uL Sodium 133 L 134 L (135-149) mmol/L Potassium 3.4 L (3.6-5.1) mmol/L Anion Gap 5 L (7-15) mEq/L Glucose 131 H 123 H (60-115) mg/dL GGT 1128 H (8-55) U/L AST 44 H 441 H (12-35) U/L ALT 153 H (4-35) U/L Alkaline Phosphatase 189 H 247 H (40-150) U/L C-Reactive Protein 1.6 H (0.5-1.0) mg/dL Urine Appearance Turbid A (Clear) Urine Nitrite Positive A (Negative) Ur Leukocyte Esterase Trace A (Negative) Urine RBC 2-5 A (0-2) Urine WBC 5-10 A (0-5) Amorphous Sediment Few A (None) Urine Bacteria Moderate A (None) Diabetes panel 10/19/24 10/20/24 Range/Units 21:00 05:56 Sodium 133 L 134 L (135-149) mmol/L Potassium 4.2 3.4 L (3.6-5.1) mmol/L Chloride 103 107 (96-114) mmol/L Carbon Dioxide 20 22 (20-32) mmol/L BUN 23 18 (7-30) mg/dL Creatinine 0.8 0.6 (0.5-1.5) mg/dL Glucose 131 H 123 H (60-115) mg/dL Calcium 10.3 8.9 (8.4-10.6) mg/dL AST 44 H 441 H (12-35) U/L ALT 32 153 H (4-35) U/L Alkaline Phosphatase 189 H 247 H (40-150) U/L Total Protein 8.1 6.5 (6.0-8.3) g/dL Albumin 4.9 3.9 (3.3-5.0) g/dL Calcium panel 10/19/24 10/20/24 Range/Units 21:00 05:56 Calcium 10.3 8.9 (8.4-10.6) mg/dL Albumin 4.9 3.9 (3.3-5.0) g/dL Pituitary panel 10/19/24 10/20/24 Range/Units 21:00 05:56 Sodium 133 L 134 L (135-149) mmol/L Potassium 4.2 3.4 L (3.6-5.1) mmol/L Chloride 103 107 (96-114) mmol/L Carbon Dioxide 20 22 (20-32) mmol/L BUN 23 18 (7-30) mg/dL Creatinine 0.8 0.6 (0.5-1.5) mg/dL Glucose 131 H 123 H (60-115) mg/dL Calcium 10.3 8.9 (8.4-10.6) mg/dL Adrenal panel 10/19/24 10/20/24 Range/Units 21:00 05:56 Sodium 133 L 134 L (135-149) mmol/L Potassium 4.2 3.4 L (3.6-5.1) mmol/L Chloride 103 107 (96-114) mmol/L Carbon Dioxide 20 22 (20-32) mmol/L BUN 23 18 (7-30) mg/dL Creatinine 0.8 0.6 (0.5-1.5) mg/dL Glucose 131 H 123 H (60-115) mg/dL Calcium 10.3 8.9 (8.4-10.6) mg/dL Total Bilirubin 0.8 1.4 (0.1-1.5) mg/dL AST 44 H 441 H (12-35) U/L ALT 32 153 H (4-35) U/L Alkaline Phosphatase 189 H 247 H (40-150) U/L Total Protein 8.1 6.5 (6.0-8.3) g/dL Albumin 4.9 3.9 (3.3-5.0) g/dL All other labs normal. Progress Note:A&P Assessment and plan (1) Small bowel obstruction: Status: Acute Assessment and Plan: 79-year-old female with previous history of abdominal surgeries and multiple small-bowel obstructions is admitted to the hospital Recurrent small bowel obstruction. 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 I discussed with the patient that her abdominal exam is benign. We will adjust her NG tube and work on anti emetics sews she stops vomiting. If patient continues to have vomiting around her NG tube and continued pain that is not improving by tonight, we will do a contrast study through NG tube. All questions were answered.
[2024-10-20] MEDS: PROCHLORPERAZINE 5 MG/ML VIAL IV ×3 (10:04→22:26)
[2024-10-20] MEDS: PANTOPRAZOLE SODIUM 40 MG INJ 80 MG IVP (10:12)
[2024-10-20] MEDS: SODIUM CHLORIDE 0.9 % (FLUSH) 10 ML SYRINGE 5 ML IVF (10:13)
[2024-10-20] MEDS: 0.9 % SODIUM CHLORIDE 500 ML 500 ML IV (10:25)
[2024-10-20 10:47] LABS: Gastric Occult Blood* POSITIVE (Negative); pH Gastric Fluid* 4.0
[2024-10-20] MEDS: cefTRIAXone 1 GM in 0.9 % SODIUM CHLORIDE Mini-bag 100 ML IVPB (11:24)
--- NOTE | 2024-10-20 13:53 | REH.PT ---
PT Eval and Treat orders received and chart reviewed. Approached Pt X 2 for eval. Pt declined PT and asked selling underwriter to try again tomorrow. Will reattempt on 10/21.
--- NOTE | 2024-10-20 14:01 | CRLHL7_ITS ---
For Patients: As a result of the Century Cures Act, medical imaging exams and procedure reports are released immediately into your electronic medical record. You may view this report before your referring provider. If you have questions, please contact your health care provider. INDICATION: NG tube TECHNIQUE: Single-view chest. FINDINGS: The lungs are clear. The heart, mediastinum and pulmonary vessels are of normal size. There is no evidence of pleural disease. NG tube in the proximal stomach. IMPRESSION: NG tube in the proximal stomach Dictated by Camila Price MD @ 10/20/2024 2:29:47 PM (Electronically Signed)
--- NOTE | 2024-10-20 15:27 | P.IMPN_ITS ---
Assessment and Plan Assessment and plan (1) Small bowel obstruction: Problem comment: -recurrent -previously conservative management -NG is likely small caliber or getting pushed against the wall of the stomach. Vomiting is likely superimposed on a poor functioning NG -transaminitis noted -rounded with general surgery, both of us at bedside. Benign exam. -consider replacement of NG/reposition. Consider Gastrografin challenge. Status: Acute (2) Hypertension: Problem comment: on amlodipine, BB, ARB and triamterene/HCTZ. Hold can give IV metoprolol if needed Status: Acute (3) Hyperlipidemia: Problem comment: on a statin, hold Status: Acute (4) GERD (gastroesophageal reflux disease): Problem comment: on a PPI, hold while on IV Protonix and has NG Status: Acute (5) Functional gastrointestinal irritation: Problem comment: -some flecks of bright red blood and positive heme -IV Protonix Status: Acute (6) Transaminitis: Problem comment: -noted, following Status: Acute (7) UTI (urinary tract infection): Problem comment: Gram-negative yamileth Ceftriaxone 1 g Q 24 Status: Acute (8) Hypokalemia: Problem comment: -noted on normal saline Status: Acute Subjective Date Seen: 10/20/24 Interval history: Daily Progress Note - Hospital #: 2 CC: SBO, recurrent. likely adhesional. 24 HOUR UPDATE: continues with nausea/vomiting around NG tube. requiring IV antiemetics/analgesics. some blood tinged gastric return. no ирина hemorrhage. IV Protonix ordered, IV compazine and dilaudid. vitally stable Not passing gas. Notable Labs, Micro, Rads, Interventions: White blood cell count has dropped quite dramatically 10.3 down to 3.91 however the 3-4 ranges more her baseline. Hemoglobin dropped from 11.8 down to 10.1. Sodium down to 134, potassium down to 3.4. Her liver enzymes have markedly increased. She has a GGT of over 1100. AST 400+, ALT 100+, alk-phos 200+. Normal bilirubin. CRP is only 1.6. Objective: Vitals: see above Lungs: Clear. Cardiac: S1S2. Disposition/Potential discharge - Today I spent 50minutes seeing the patient, reviewing Expanse and EPIC notes/diagnostics, discussing the care plan with our care time that includes social work, PT/OT, pharmacy, RT, usp and documenting my impressions and plan in the medical record. Prolonged Physician Services [id number] ([facility]) in conjunction with: [id number] (subsequent visit; 50 mins + 15 mins prolonged services = 65 mins total) I then went back for 15 mins to discuss the findings of ..... Alcohol 05076 >30 mins. We went over all the stigmata of alcoholism I see in this patient. I discussed the effects of chronic alcohol on the brain, liver, and heart. I recommended complete abstinence from alcohol and instructed on programs available at discharge from acute care. Smoking/Tobacco 06918 >10 mins. I went over the clinical stigmata of chronic tobacco use on the body. I explained the effect on the vasculature, lungs, heart, skin. I recommended complete abstinence from tobacco products and instructed on programs available at discharge from acute care. ACP first 30 mins [id number] I went over options for care during this current hospitalization and explained the difference between palliative care and hospice care. I described the likelihood of returning to previous functioning and what the options are going forward for care. Exam Const: Vital Signs, click to edit/add: Vital Signs - 24 hr 10/19/24 20:26 10/19/24 22:22 10/19/24 23:47 Temperature 97.3 F L 98.5 F 98.1 F Pulse Rate Pulse Rate [Pulse Oximeter] 73 Pulse Rate [Right Pulse Oximeter] 74 Respiratory Rate 21 16 Blood Pressure [Le ft Upper Arm] 131/69 Blood Pressure [Ri ght Arm] 133/72 Pulse Oximetry 98 95 Oxygen Delivery Me thod Room Air Room Air 10/20/24 00:02 10/20/24 02:18 10/20/24 04:51 Temperature 98.0 F Pulse Rate 69 Pulse Rate [Pulse Oximeter] 97 Pulse Rate [Right Pulse Oximeter] Respiratory Rate 18 Blood Pressure [Le ft Upper Arm] Blood Pressure [Ri ght Arm] 159/71 H Pulse Oximetry 95 97 Oxygen Delivery Me thod Room Air Room Air 10/20/24 07:00 10/20/24 07:00 10/20/24 07:50 Temperature 97.9 F Pulse Rate 71 Pulse Rate [Pulse Oximeter] 70 70 Pulse Rate [Right Pulse Oximeter] Respiratory Rate 16 16 Blood Pressure [Le ft Upper Arm] Blood Pressure [Ri ght Arm] 143/62 H Pulse Oximetry 94 Oxygen Delivery Me thod Room Air 10/20/24 11:00 10/20/24 15:12 Temperature 97.9 F Pulse Rate Pulse Rate [Pulse Oximeter] 74 70 Pulse Rate [Right Pulse Oximeter] Respiratory Rate 16 16 Blood Pressure [Le ft Upper Arm] Blood Pressure [Ri ght Arm] 151/72 H 147/74 H Pulse Oximetry 90 93 Oxygen Delivery Me thod Room Air Room Air Labs Labs: Laboratory Results - last 24 hr 10/19/24 10/19/24 10/19/24 21:00 21:07 22:05 WBC 10.32 RBC 4.00 Hgb 11.8 L Hct 36.4 MCV 91 MCH 30 MCHC 32 RDW Coeff of Jose Miguel 15.8 H Plt Count 293 Neut % (Auto) 80.0 H Lymph % (Auto) 11.3 L [place] % (Auto) 6.7 Eos % (Auto) 1.6 Baso % (Auto) 0.3 Neut # (Auto) 8.30 H Lymph # (Auto) 1.20 [place] # (Auto) 0.70 Eos # (Auto) 0.17 Baso # (Auto) 0.03 Abs Immat Gran (auto) 0.01 Imm/Tot Granulo (auto) 0.1 Sodium 133 L Potassium 4.2 Chloride 103 Carbon Dioxide 20 Anion Gap 10 BUN 23 Creatinine 0.8 Estimated Creat Clear 38.35 Estimated GFR 75 Glucose 131 H Lactate 1.0 Calcium 10.3 Magnesium Total Bilirubin 0.8 GGT AST 44 H ALT 32 Alkaline Phosphatase 189 H C-Reactive Protein Total Protein 8.1 Albumin 4.9 Lipase 108 Urine Color Yellow Urine Appearance Turbid A Urine pH 5.5 Ur Specific [place] <= 1.005 Urine Protein Negative Urine Glucose (UA) Negative Urine Ketones Negative Urine Blood Negative Urine Nitrite Positive A Urine Bilirubin Negative Urine Urobilinogen 0.2 Ur Leukocyte Esterase Trace A Urine RBC 2-5 A Urine WBC 5-10 A Ur Squamous Epith Cells Few Amorphous Sediment Few A Urine Bacteria Moderate A Gastric Fluid pH Gastric Occult Blood Lab Acknowledgement POC Creatinine 0.9 10/20/24 10/20/24 10/20/24 05:56 08:17 10:33 WBC 3.91 L RBC 3.41 L Hgb 10.1 L Hct 31.7 L MCV 93 MCH 30 MCHC 32 RDW Coeff of Jose Miguel Plt Count 226 Neut % (Auto) Lymph % (Auto) [place] % (Auto) Eos % (Auto) Baso % (Auto) Neut # (Auto) Lymph # (Auto) [place] # (Auto) Eos # (Auto) Baso # (Auto) Abs Immat Gran (auto) Imm/Tot Granulo (auto) Sodium 134 L Potassium 3.4 L Chloride 107 Carbon Dioxide 22 Anion Gap 5 L BUN 18 Creatinine 0.6 Estimated Creat Clear 38.35 Estimated GFR 92 Glucose 123 H Lactate Calcium 8.9 Magnesium 2.1 Total Bilirubin 1.4 GGT 1128 H AST 441 H ALT 153 H Alkaline Phosphatase 247 H C-Reactive Protein 1.6 H Total Protein 6.5 Albumin 3.9 Lipase Urine Color Urine Appearance Urine pH Ur Specific [place] Urine Protein Urine Glucose (UA) Urine Ketones Urine Blood Urine Nitrite Urine Bilirubin Urine Urobilinogen Ur Leukocyte Esterase Urine RBC Urine WBC Ur Squamous Epith Cells Amorphous Sediment Urine Bacteria Gastric Fluid pH 4.0 Gastric Occult Blood POSITIVE A Lab Acknowledgement Test Added POC Creatinine
[2024-10-20 16:12] LABS: Albumin* 3.8 g/dL (3.3-5.0)
[2024-10-20 16:15] LABS: Alanine Aminotransferase* 160 U/L (4-35); Alkaline Phosphatase* 260 U/L (40-150); Aspartate Amino Transferase* 261 U/L (12-35); Bilirubin Direct* 0.4 mg/dL (0.0-0.5); Bilirubin Total* 1.2 mg/dL (0.1-1.5); Total Protein* 6.5 g/dL (6.0-8.3)
--- NOTE | 2024-10-20 18:47 | PC.NURSE ---
Pt is pleasant to care for. VSS. Pain is more controlled this evening, Dilaudid is semi-effective. Pt has had frequent nausea and vomiting throughout shift, requiring IV anti-emetics. Pt's NG was advanced to 57cm; output has increased and nausea is improving. Pt notified nurse of insect bite she discovered 2-3 days ago on the left inner thigh; this was outlined, provider notified, no new orders. , Gregg, visited today and was updated. Pt is resting well at this time.
[2024-10-21] VITALS (10 sets, daily range): BP systolic 148–164; BP diastolic 59–75; PULSE 63–78; RESP 16–20; TEMP 36.6–36.8; O2SAT 93–98
[2024-10-21] MEDS: ONDANSETRON 2 MG/ML inj 4 MG IVP (02:37)
[2024-10-21 07:13] LABS: Hematocrit 32.3 % (33.0-51.0); Hemoglobin* 10.3 gm/dL (12.0-16.0); Mean Corpuscular HGB Conc 32 gm/dL (32-36); Mean Corpuscular Hemoglobin 30 pg (26-34); Mean Corpuscular Volume 93 fL (80-100); Red Blood Count 3.49 m/uL (4.00-5.20); White Blood Count* 4.42 K/uL (4.50-11.00)
[2024-10-21 07:25] LABS: Slide Review Reflex No
[2024-10-21 07:32] LABS: Chloride* 102 mmol/L (96-114); Sodium* 135 mmol/L (135-149)
[2024-10-21 07:34] LABS: Blood Urea Nitrogen* 5 mg/dL (7-30); Creatinine* 0.4 mg/dL (0.5-1.5); Est. Creatinine Clearance* 38.35; Estimated Glomerular Filt Rate 101 ml/min
[2024-10-21 07:35] LABS: Anion Gap 6 mEq/L (7-15); Calcium* 8.5 mg/dL (8.4-10.6); Carbon Dioxide* 27 mmol/L (20-32); Glucose* 100 mg/dL (60-115)
[2024-10-21 07:51] LABS: Potassium* 2.4 mmol/L (3.6-5.1)
--- NOTE | 2024-10-21 07:52 | PC.NURSE ---
Shift note ([id number]): Patient pleasant, alert and oriented.?Ambulating with walker, gait belt and assist of one. NG canister changed at 2029. Patient reported some nausea at that time after tubing was clamped to use the bathroom. Total NG output since admission to [facility] was 800mL at that time. Contents were dark green in canister; NG drainage in tubing was allen-brown at that time.?Given PRN Dilaudid for pain. PRN Compazine and Zofran for nausea. Given PRN Ativan at 0237 per pt request. At approximately 0600 lab staff alerted signwriter that pt was attempting to get out of bed. Central Supply Technician assessed pt. Pt not oriented to room. Was oriented to place. Did report she remembered signwriter and charge nurse; stated signwriter?s name. VS per pt baseline. Denied dizziness or lightheadedness. Denied any discomfort at that time. Bed alarm turned on and pt was educated to use call light if needed to get up. NG drainage is allen brown in tubing at this time. Total output since 2029 is 300mL. Pt is more awake. Now also oriented to room and is per baseline at this time.?
[2024-10-21] MEDS: cefTRIAXone 1 GM in 0.9 % SODIUM CHLORIDE Mini-bag 100 ML IVPB (08:46)
[2024-10-21] MEDS: PANTOPRAZOLE SODIUM 40 MG INJ IVP (08:46)
--- NOTE | 2024-10-21 08:54 | PM.GSPN ---
Subjective Subjective Date Seen: 10/21/24 Interval history: Patient is doing better today. Her NG tube was repositioned yesterday and was suctioning better. Patient had no vomiting after the tube was repositioned. Her abdominal pain is improving. She felt like she passed gas overnight. She walked yesterday. Today patient's potassium is 2.4. Her WBC is 4. Hemoglobin is stable at 10.3. Exam Narrative: Exam Narrative: Abdomen is soft, not distended, not tender to palpation in the right upper quadrant, this is improved from yesterday. Const: Vital Signs, click to edit/add: Vital Signs - 24 hr 10/20/24 11:00 10/20/24 15:00 10/20/24 15:00 Temperature 97.9 F Pulse Rate 74 Pulse Rate [Pulse Oximeter] 74 70 Respiratory Rate 16 16 Blood Pressure [Ri ght Arm] 151/72 H Pulse Oximetry 90 Oxygen Delivery Me thod Room Air 10/20/24 15:12 10/20/24 20:00 10/20/24 23:05 Temperature 98.3 F 98.0 F Pulse Rate Pulse Rate [Pulse Oximeter] 70 83 71 Respiratory Rate 16 17 20 Blood Pressure [Ri ght Arm] 147/74 H 144/61 H 147/62 H Pulse Oximetry 93 94 93 Oxygen Delivery Me thod Room Air Room Air Room Air 10/21/24 02:43 10/21/24 03:45 10/21/24 06:13 Temperature 98.0 F 98.3 F Pulse Rate 67 Pulse Rate [Pulse Oximeter] 63 72 Respiratory Rate 19 20 Blood Pressure [Ri ght Arm] 151/69 H 164/75 H Pulse Oximetry 93 95 Oxygen Delivery Me thod Room Air Room Air 10/21/24 08:29 10/21/24 08:29 Temperature 98.1 F Pulse Rate 70 Pulse Rate [Pulse Oximeter] 66 Respiratory Rate 16 Blood Pressure [Ri ght Arm] 151/64 H Pulse Oximetry 97 Oxygen Delivery Me thod Room Air Progress Note:A&P Assessment and plan (1) Small bowel obstruction: Status: Acute Plan 79-year-old female admitted to the hospital with small-bowel obstruction that is improving with conservative treatment. I discussed with the patient that we will continue with NG to suction. If patient continues to pass gas throughout the day, we can clamp her NG and leave it in place. Will work on aggressive potassium replacement. Patient was stating that IV potassium replacement gives her muscle cramps. I discussed with her nurse to double the time of potassium replacement. We will also replace her normal saline with LR. Patient will continue ambulating today. Not ready to discharge home.
[2024-10-21] MEDS: SODIUM CHLORIDE 0.9 % (FLUSH) 10 ML SYRINGE 5 ML IVF ×2 (08:58→21:32)
[2024-10-21] MEDS: METOPROLOL TARTRATE 1 MG/ML inj 5 MG IVP ×5 (08:58→23:40)
[2024-10-21] MEDS: POTASSIUM CHLORIDE 10 MEQ/100 ML PIGGYBACK 50 MEQ IVPB ×4 (10:02→16:15)
[2024-10-21] MEDS: LACTATED RINGERS 1000 ML 1,000 ML 100 ML IV ×2 (10:31→20:06)
--- NOTE | 2024-10-21 10:37 | PM.IMPN1 ---
Assessment and Plan Assessment and plan (1) Small bowel obstruction: Problem comment: -recurrent -previously conservative management -NG is likely small caliber or getting pushed against the wall of the stomach. Vomiting is likely superimposed on a poor functioning NG - improved with repositioning. -transaminitis noted -benign exam. -our plan is to continue IV fluids, NG to intermittent suction, hold home meds, use IV metoprolol for blood pressure management, consider clamping this evening for a trial. NG in overnight even if clamping is tolerated. -6 walks today if tolerated Status: Acute (2) UTI (urinary tract infection): Problem comment: Pansensitive E coli Ceftriaxone 1 g Q 24 Status: Acute (3) Transaminitis: Problem comment: -noted, following Status: Acute (4) Functional gastrointestinal irritation: Problem comment: -some flecks of bright red blood and positive heme -IV Protonix -hemoglobin stable Status: Acute (5) Hypokalemia: Problem comment: -worsened overnight -change fluids to LR -IV potassium replacement given NPO status -continue to monitor Status: Acute (6) Hyperlipidemia: Problem comment: on a statin, hold Status: Acute (7) GERD (gastroesophageal reflux disease): Problem comment: on a PPI, hold while on IV Protonix and has NG Status: Acute (8) Hypertension: Problem comment: on amlodipine, BB, ARB and triamterene/HCTZ. Hold can give IV metoprolol if needed Status: Acute Subjective Date Seen: 10/21/24 Interval history: Daily Progress Note - Hospital #: 3 CC: SBO, recurrent. likely adhesional. 24 HOUR UPDATE: had a little dissociation after IV Ativan in middle of the night. This has resolved. vomiting has resolved with repositioned NG some blood tinged gastric return. no ирина hemorrhage. hgb stable. IV Protonix ordered, IV compazine and zofran dilaudid prn vitally stable potentially passed gas this am Notable Labs, Micro, Rads, Interventions: CBC stable. Sodium normal, potassium 2.4 Her liver enzymes have been increased; trending. bili normal. Objective: Looks improved. Vitals: see above Lungs: Clear. Cardiac: S1S2. Abdomen: Soft. Nondistended. Disposition/Potential discharge - 48 hours, hopefully discharge home Today I spent 50minutes seeing the patient, reviewing Expanse and EPIC notes/diagnostics, discussing the care plan with our care time that includes social work, PT/OT, pharmacy, RT, jail and documenting my impressions and plan in the medical record. Exam Const: Vital Signs, click to edit/add: Vital Signs - 24 hr 10/20/24 11:00 10/20/24 15:00 10/20/24 15:00 Temperature 97.9 F Pulse Rate 74 Pulse Rate [Pulse Oximeter] 74 70 Respiratory Rate 16 16 Blood Pressure [Ri ght Arm] 151/72 H Pulse Oximetry 90 Oxygen Delivery Me thod Room Air 10/20/24 15:12 10/20/24 20:00 10/20/24 23:05 Temperature 98.3 F 98.0 F Pulse Rate Pulse Rate [Pulse Oximeter] 70 83 71 Respiratory Rate 16 17 20 Blood Pressure [Ri ght Arm] 147/74 H 144/61 H 147/62 H Pulse Oximetry 93 94 93 Oxygen Delivery Me thod Room Air Room Air Room Air 10/21/24 02:43 10/21/24 03:45 10/21/24 06:13 Temperature 98.0 F 98.3 F Pulse Rate 67 Pulse Rate [Pulse Oximeter] 63 72 Respiratory Rate 19 20 Blood Pressure [Ri ght Arm] 151/69 H 164/75 H Pulse Oximetry 93 95 Oxygen Delivery Me thod Room Air Room Air 10/21/24 08:29 10/21/24 08:29 Temperature 98.1 F Pulse Rate 70 Pulse Rate [Pulse Oximeter] 66 Respiratory Rate 16 Blood Pressure [Ri ght Arm] 151/64 H Pulse Oximetry 97 Oxygen Delivery Me thod Room Air Labs Labs: Laboratory Results - last 24 hr 10/20/24 10/20/24 10/21/24 10:33 15:47 07:00 WBC 4.42 L RBC 3.49 L Hgb 10.3 L Hct 32.3 L MCV 93 MCH 30 MCHC 32 Plt Count 217 Sodium 135 Potassium 2.4 L* Chloride 102 Carbon Dioxide 27 Anion Gap 6 L BUN 5 L Creatinine 0.4 L Estimated Creat Clear 38.35 Estimated GFR 101 Glucose 100 Calcium 8.5 Total Bilirubin 1.2 Direct Bilirubin 0.4 AST 261 H ALT 160 H Alkaline Phosphatase 260 H C-Reactive Protein 2.7 H Total Protein 6.5 Albumin 3.8 Lipase 44 Gastric Fluid pH 4.0 Gastric Occult Blood POSITIVE A
[2024-10-21 10:53] LABS: Albumin* 3.8 g/dL (3.3-5.0)
[2024-10-21 10:56] LABS: Alanine Aminotransferase* 120 U/L (4-35); Alkaline Phosphatase* 247 U/L (40-150); Aspartate Amino Transferase* 119 U/L (12-35); Bilirubin Direct* 0.2 mg/dL (0.0-0.5); Bilirubin Total* 0.8 mg/dL (0.1-1.5); Total Protein* 6.5 g/dL (6.0-8.3)
--- NOTE | 2024-10-21 13:26 | PC.NURSE ---
Shift Summary: Patient pleasant and cooperative. Up with SBA, mostly needing assistance with IV pole. Vitals stable and WNL. Encouraged to ambulate at least 6x today, has so far gone x2. NG to low intermittent suction. Denies pain, states she believes shes passed some gas today.
--- NOTE | 2024-10-21 18:37 | PC.NURSE ---
End of Shift ([id number]): Patient pleasant and cooperative. Patient vitally stable, lungs clear, BS hypoactive, IV running LR at 100. Patient denies abdominal pain. Patient's NG is at 57 and currently clamped starting at 1830. NG output is 125 this shift and brown/green in color. Abdomen is soft and not tender with palpation. Patient reports not passing anymore gas this afternoon. Patient has walked the halls x6 and urinating well. Tele=NSR
[2024-10-21 20:20] LABS: Potassium* 2.8 mmol/L (3.6-5.1)
[2024-10-21] MEDS: POTASSIUM CHLORIDE 10 MEQ/100 ML PIGGYBACK 100 MEQ IVPB ×3 (21:33→23:37)
[2024-10-22] VITALS (7 sets, daily range): BP systolic 149–178; BP diastolic 64–76; PULSE 66–76; RESP 16–22; TEMP 36.6–36.9; O2SAT 93–98
[2024-10-22] MEDS: POTASSIUM CHLORIDE 10 MEQ/100 ML PIGGYBACK 100 MEQ IVPB (01:07)
[2024-10-22] MEDS: METOPROLOL TARTRATE 1 MG/ML inj 5 MG IVP ×2 (04:27→07:43)
[2024-10-22 06:03] LABS: Hematocrit 30.4 % (33.0-51.0); Hemoglobin* 9.9 gm/dL (12.0-16.0); Mean Corpuscular HGB Conc 33 gm/dL (32-36); Mean Corpuscular Hemoglobin 30 pg (26-34); Mean Corpuscular Volume 92 fL (80-100); Red Blood Count 3.31 m/uL (4.00-5.20); White Blood Count* 6.74 K/uL (4.50-11.00)
[2024-10-22 06:05] LABS: Slide Review Reflex No
--- NOTE | 2024-10-22 06:07 | PC.NURSE ---
19-0700: The patient is pleasant and cooperative during cares. BP is noted to be quite hypertensive. NG tube is clamped @ 54cm. The patient is tolerating this well... slight amount of nausea reported @ 0100... aromatherapy helped with this. Upon my 0300 VS the patient reported a little bit of abdominal discomfort, but denied the need for intervention. Moving well w/ SBA and RW. Walked in the halls. The patient reports passing a small amount of gas. Potassium was replaced via IV 4x overnight. Voiding well. The patient will make her needs known. Francheska MORALES BSN
[2024-10-22 06:27] LABS: Albumin* 3.9 g/dL (3.3-5.0); Chloride* 100 mmol/L (96-114); Sodium* 135 mmol/L (135-149)
[2024-10-22 06:30] LABS: Alanine Aminotransferase* 81 U/L (4-35); Alkaline Phosphatase* 195 U/L (40-150); Anion Gap 8 mEq/L (7-15); Aspartate Amino Transferase* 57 U/L (12-35); Bilirubin Total* 0.7 mg/dL (0.1-1.5); Blood Urea Nitrogen* 4 mg/dL (7-30); Calcium* 9.0 mg/dL (8.4-10.6); Carbon Dioxide* 27 mmol/L (20-32); Creatinine* 0.4 mg/dL (0.5-1.5); Est. Creatinine Clearance* 38.35; Estimated Glomerular Filt Rate 101 ml/min; Glucose* 89 mg/dL (60-115); Total Protein* 6.4 g/dL (6.0-8.3)
[2024-10-22 06:39] LABS: Potassium* 2.7 mmol/L (3.6-5.1)
[2024-10-22] MEDS: PANTOPRAZOLE SODIUM 40 MG INJ IVP (07:44)
[2024-10-22] MEDS: cefTRIAXone 1 GM in 0.9 % SODIUM CHLORIDE Mini-bag 100 ML IVPB (08:45)
[2024-10-22] MEDS: SODIUM CHLORIDE 0.9 % (FLUSH) 10 ML SYRINGE 5 ML IVF (08:46)
[2024-10-22] MEDS: POTASSIUM BICARB 25 MEQ EFFERVESCENT TAB PO ×2 (11:28→13:37)
[2024-10-22] MEDS: AMLODIPINE 5 MG TABLET PO (11:28)
[2024-10-22] MEDS: OLMESARTAN MEDOXOMIL 20 MG TABLET PO (11:44)
[2024-10-22] MEDS: LACTATED RINGERS 1000 ML 1,000 ML 100 ML IV (13:37)
--- NOTE | 2024-10-22 14:00 | P.IMPN_ITS ---
Assessment and Plan Assessment and plan (1) Small bowel obstruction: Problem comment: -recurrent -previously conservative management -transaminitis noted -benign exam. -NG withdrawn this morning; diet trial; walks Status: Acute (2) Hypokalemia: Problem comment: -persistent -change fluids to LR -starting oral intake -continue to monitor Status: Acute (3) UTI (urinary tract infection): Problem comment: Pansensitive E coli Ceftriaxone 1 g Q 24 --> keflex on 10/22 Status: Acute (4) Transaminitis: Problem comment: -noted, following -down trending Status: Acute (5) Functional gastrointestinal irritation: Problem comment: -some flecks of bright red blood and positive heme -IV Protonix -hemoglobin slowly decreased Status: Acute (6) Hyperlipidemia: Problem comment: statin therapy Status: Acute (7) GERD (gastroesophageal reflux disease): Problem comment: PPI ongoing Status: Acute (8) Hypertension: Problem comment: on amlodipine, BB, ARB and triamterene/HCTZ. restarting. Status: Acute Subjective Date Seen: 10/22/24 Interval history: Daily Progress Note - Hospital Medicine #: 4 CC: SBO, recurrent. likely adhesional. 24 HOUR UPDATE: much improved clamped since last night NG d/c this am no nausea starting with ice chips - slow increase to full liquids Notable Labs, Micro, Rads, Interventions: CBC stable. slow decrease in her hgb. Sodium normal, mod severe hypokalemia Her liver enzymes have been increased; trending. bili normal. Objective: Looks improved. Vitals: see above Lungs: Clear. Cardiac: S1S2. Abdomen: Soft. Nondistended. Disposition/Potential discharge - 48 hours, hopefully discharge home Today I spent 50minutes seeing the patient, reviewing Expanse and EPIC notes/diagnostics, discussing the care plan with our care time that includes social work, PT/OT, pharmacy, RT, senior living and documenting my impressions and plan in the medical record. Exam Const: Vital Signs, click to edit/add: Vital Signs - 24 hr 10/21/24 15:00 10/21/24 15:00 10/21/24 15:08 Temperature 98.1 F Pulse Rate 70 Pulse Rate [Pulse Oximeter] 67 67 Respiratory Rate 18 18 Blood Pressure [Le ft Arm] 148/66 H Blood Pressure [Ri ght Arm] Pulse Oximetry 98 Oxygen Delivery Me thod Room Air 10/21/24 20:00 10/21/24 22:08 10/21/24 22:48 Temperature 98.0 F 98.0 F Pulse Rate 77 Pulse Rate [Pulse Oximeter] 78 78 Respiratory Rate 18 18 Blood Pressure [Le ft Arm] Blood Pressure [Ri ght Arm] 164/69 H 155/59 H Pulse Oximetry 96 97 Oxygen Delivery Me thod Room Air Room Air 10/22/24 03:00 10/22/24 07:40 10/22/24 07:40 Temperature 98.4 F 98.1 F Pulse Rate Pulse Rate [Pulse Oximeter] 75 76 76 Respiratory Rate 16 16 16 Blood Pressure [Le ft Arm] 178/76 H Blood Pressure [Ri ght Arm] 174/75 H Pulse Oximetry 93 95 Oxygen Delivery Md thod Room Air Room Air 10/22/24 11:19 10/22/24 12:26 Temperature 98 F Pulse Rate 66 Pulse Rate [Pulse Oximeter] 68 Respiratory Rate 18 Blood Pressure [Le ft Arm] 150/64 H Blood Pressure [Ri ght Arm] Pulse Oximetry 98 Oxygen Delivery Md thod Room Air Labs Labs: Laboratory Results - last 24 hr 10/21/24 10/22/24 20:00 05:23 WBC 6.74 RBC 3.31 L Hgb 9.9 L Hct 30.4 L MCV 92 MCH 30 MCHC 33 Plt Count 217 Sodium 135 Potassium 2.8 L* 2.7 L* Chloride 100 Carbon Dioxide 27 Anion Gap 8 BUN 4 L Creatinine 0.4 L Estimated Creat Clear 38.35 Estimated GFR 101 Glucose 89 Calcium 9.0 Total Bilirubin 0.7 AST 57 H ALT 81 H Alkaline Phosphatase 195 H Total Protein 6.4 Albumin 3.9
[2024-10-22] MEDS: POTASSIUM CHLORIDE 10 MEQ CAPSULE ER 40 MEQ PO (14:59)
[2024-10-22] MEDS: POTASSIUM CHLORIDE 10 MEQ CAPSULE ER 20 MEQ PO (18:09)
--- NOTE | 2024-10-22 18:59 | PC.NURSE ---
End of Shift: Patient is pleasant and cooperative. Patient hypertensive but vitally stable, lungs clear, BS WNL, IV running LR at 100. Patient denies abdominal pain and nausea today. Patient is tolerating a full liquid diet, and urinating well. Patient reports passing gas but no BM. Patient has been up in chair and walking the halls.
[2024-10-22 19:08] LABS: Chloride* 97 mmol/L (96-114); Potassium* 3.7 mmol/L (3.6-5.1); Sodium* 133 mmol/L (135-149)
[2024-10-22 19:11] LABS: Anion Gap 4 mEq/L (7-15); Blood Urea Nitrogen* 5 mg/dL (7-30); Calcium* 9.4 mg/dL (8.4-10.6); Carbon Dioxide* 32 mmol/L (20-32); Creatinine* 0.5 mg/dL (0.5-1.5); Est. Creatinine Clearance* 38.35; Estimated Glomerular Filt Rate 96 ml/min; Glucose* 174 mg/dL (60-115)
[2024-10-22] MEDS: ACETAMINOPHEN 325 MG TABLET 650 MG PO (21:37)
[2024-10-22] MEDS: MELATONIN 3 MG TABLET PO (21:38)
[2024-10-23 03:43] VITALS: BP 164/73; PULSE 68; RESP 18; TEMP 36.7; O2SAT 95
[2024-10-23 06:10] LABS: Hematocrit 34.3 % (33.0-51.0); Hemoglobin* 11.2 gm/dL (12.0-16.0); Mean Corpuscular HGB Conc 33 gm/dL (32-36); Mean Corpuscular Hemoglobin 30 pg (26-34); Mean Corpuscular Volume 92 fL (80-100); Red Blood Count 3.74 m/uL (4.00-5.20); White Blood Count* 5.71 K/uL (4.50-11.00)
[2024-10-23 06:17] LABS: Slide Review Reflex No
--- NOTE | 2024-10-23 06:57 | PC.NURSE ---
Uneventful shift overnight, VSS on RA. No reports of abdominal discomfort. The patient had a BM last night as well. The patient hopes to advance her diet today and go home. Saline lock. Francheska MOARLES BSN
[2024-10-23 06:59] LABS: Chloride* 97 mmol/L (96-114); Potassium* 3.5 mmol/L (3.6-5.1); Sodium* 136 mmol/L (135-149)
[2024-10-23 07:02] LABS: Anion Gap 10 mEq/L (7-15); Blood Urea Nitrogen* 3 mg/dL (7-30); Carbon Dioxide* 29 mmol/L (20-32); Creatinine* 0.4 mg/dL (0.5-1.5); Est. Creatinine Clearance* 38.35; Estimated Glomerular Filt Rate 101 ml/min
[2024-10-23 07:03] LABS: Calcium* 9.8 mg/dL (8.4-10.6); Glucose* 112 mg/dL (60-115)
[2024-10-23 07:37] VITALS: BP 164/84; PULSE 67; RESP 20; TEMP 36.6; O2SAT 98
[2024-10-23] MEDS: POTASSIUM CHLORIDE 10 MEQ CAPSULE ER 20 MEQ PO (07:42)
[2024-10-23] MEDS: ROSUVASTATIN CALCIUM 10 MG TABLET 40 MG PO (08:57)
[2024-10-23] MEDS: OLMESARTAN MEDOXOMIL 20 MG TABLET PO (08:58)
[2024-10-23] MEDS: AMLODIPINE 5 MG TABLET PO (08:58)
[2024-10-23] MEDS: SODIUM CHLORIDE 0.9 % (FLUSH) 10 ML SYRINGE 5 ML IVF (08:59)
--- NOTE | 2024-10-23 10:34 | P.DS_ITS ---
DS: Providers Provider Date Seen: 10/23/24 Date of admission: 10/20/24 07:26 Primary care physician: Vishnu Whittaker MD Admitting Clinician: Lisha Victoria MD Consults: 10/19/24 23:54 Consult to Occupational Therapy [CONS] Routine Comment: Reason(s) for OT Consult:: Evaluate and Treat Any Restrictions?:: No Restrictions Consult to Physical Therapy [CONS] Routine Comment: Reason(s) for PT Consult:: Evaluate and Treat Any Restrictions?:: No Restrictions Consult to Physician [CONS] Urgent Comment: Consulting Provider: Sylvia Villaseñor Has provider been notified: Yes Attending Physician on discharge: [facility]aila [facility]on MD [facility] Date of Discharge: 10/23/24 DS: Diagnosis Discharge Diagnosis (1) Small bowel obstruction: Status: Acute Problem details: -recurrent -previously conservative management -transaminitis noted, down trending -benign exam. -tolerating p.o. diet after NG withdrawal. Meeting discharge criteria. (2) UTI (urinary tract infection): Status: Acute Problem details: Pansensitive E coli Ceftriaxone 1 g Q 24 --> keflex on 10/22 -no further treatment at discharge. (3) Transaminitis: Status: Acute Problem details: -noted, following -down trending -this can be followed up as an outpatient (4) Functional gastrointestinal irritation: Status: Acute Problem details: -some flecks of bright red blood and positive heme -IV Protonix -hemoglobin slowly decreased -hemoglobin rebounded. No further workup. (5) Hypokalemia: Status: Acute Problem details: -resolved after NG removal and p.o. diet resumed -this can be followed as an outpatient. DS: Summary Hospital Course Hospital Course: FINAL DIAGNOSIS/FOLLOW UP ISSUES: 1. Small-bowel obstruction. Managed conservatively. NG tube was problematic but eventually helped resolve her issues. No Gastrografin or surgery was indic ated. Resumption of p.o. intake went well. 2. Transaminitis and hypokalemia was noted throughout the stay. Both were down trending or normal at discharge. 3. UTI - pansensitive E coli. Treated with Rocephin and Keflex while admitted. No further treatment at discharge. BRIEF HOSPITAL COURSE: Patient was admitted for 5 days. Synopsis of acute inpatient issues are outlined above. Chronic medical conditions with notable findings outlined above. Her small-bowel obstruction ultimately was treated conservatively. When her NG was placed they were having difficulty so a smaller caliber NG was used. This was somewhat problematic in the 1st 48 hours. She had vomiting and continued nausea. Ultimately it was adjusted and successful in helping her recover conservatively. To that end we noticed a persistent hypokalemia for over 24 hours, a mild but notable transaminitis and some erosive gastritis likely. She also had a UTI. When discharged, no new meds. And follow-up with her PCP was a rranged. DISCHARGE MEDICATIONS: See Reconciled list - SIGNIFICANT CHANGES: No new meds Specific instructions to the patient and follow-up are outlined below. REVIEW OF SYSTEMS No new chest pain or dyspnea Pain controlled No voiding difficulties Tolerating diet challenge PHYSICAL EXAM: CONSTITUTIONAL: Conversive, good historian. A/O. Knows setting and context. GENERAL: Well-developed and above ideal body weight, in no respiratory distress. VITAL SIGNS: see record. HEENT: Sclerae are anicteric. No petechiae. ABDOMEN: Soft, nondistended. Good bowel sounds. CARDIAC: rhythm is regular. There is no S3 or rub. No harsh murmurs. Extremities show trace edema with symmetrical pulses. PULM: good air entry with no wheeze. NEURO: Speech is fluent. A brief neurologic exam is negative. SKIN: No rashes, petechiae, concerning changes PSYCHIATRIC: Euthymic. DISPOSITION: Home with partner Time spent on discharge 37 minutes. Status at Discharge Functional status at discharge: independent ambulation Overall status at discharge: patient is back to baseline Time Spent with Patient Time attestation: Total time spent providing and/or coordinating discharge services: Time spent: Greater than 30 minutes Exam Const: Vital Signs, click to edit/add: Vital Signs - 24 hr 10/22/24 11:19 10/22/24 12:26 10/22/24 15:05 Temperature 98 F 98.4 F Pulse Rate 66 Pulse Rate [Pulse Oximeter] 68 71 Respiratory Rate 18 22 Blood Pressure [Le ft Arm] 150/64 H 163/68 H Blood Pressure [Ri ght Arm] Pulse Oximetry 98 97 Oxygen Delivery Me thod Room Air Room Air 10/22/24 15:05 10/22/24 19:30 10/22/24 23:00 Temperature 98.0 F 98.2 F Pulse Rate Pulse Rate [Pulse Oximeter] 71 72 73 Respiratory Rate 22 18 18 Blood Pressure [Le ft Arm] Blood Pressure [Ri ght Arm] 149/66 H 159/67 H Pulse Oximetry 96 93 Oxygen Delivery Me thod Room Air Room Air 10/23/24 03:43 10/23/24 07:37 10/23/24 07:37 Temperature 98.0 F 97.9 F Pulse Rate Pulse Rate [Pulse Oximeter] 68 67 67 Respiratory Rate 18 20 20 Blood Pressure [Le ft Arm] Blood Pressure [Ri ght Arm] 164/73 H 164/84 H Pulse Oximetry 95 98 Oxygen Delivery Me thod Room Air Room Air DS: Data Data Completed and Pending Completed studies during hospitalization: Procedures Drainage of Stomach with Drainage Device, Via Natural or Artificial Opening (03/25/23) Labs on day of discharge: Labs from last 24 hours 10/23/24 10/22/24 05:31 18:48 WBC 5.71 RBC 3.74 L Hgb 11.2 L Hct 34.3 MCV 92 MCH 30 MCHC 33 Plt Count 223 Sodium 136 133 L Potassium 3.5 L 3.7 Chloride 97 97 Carbon Dioxide 29 32 Anion Gap 10 4 L BUN 3 L 5 L Creatinine 0.4 L 0.5 Estimated Creat Clear 38.35 38.35 Estimated GFR 101 96 Glucose 112 174 H Calcium 9.8 9.4 Discharge Plan Discharge Disposition: Home, Self-Care Date of Admission: 10/20/24 07:26 Attending Provider on Discharge: Naila Weston Consulting Providers: Sylvia Villaseñor Primary Care Provider: Vishnu Whittaker Condition: Improved Anticipated Discharge Date/Time: 10/23/24 10:30 Discharge Medications: Continued rosuvastatin 40 mg tablet 40 mg PO DAILY triamterene-hydrochlorothiazid 37.5-25 mg capsule 1 cap PO DAILY propranolol 120 mg capsule,extended release 24 hr 120 mg PO BID potassium chloride 20 mEq tablet,ER particles/crystals 20 meq PO DAILY amlodipine 5 mg tablet 5 mg PO DAILY omeprazole 20 mg capsule,delayed release(DR/EC) 20 mg PO DAILY calcium carbonate-vitamin D3 [Calcium 600 + D(3)] 600 mg-10 mcg (400 unit) tablet 2 tab PO DAILY lidocaine 5 % adhesive patch,medicated 1 patch topical .prn Rx Instructions: leave on most painful area for up to 12 hrs olmesartan 20 mg tablet 20 mg PO DAILY ondansetron HCl 4 mg tablet 4 mg PO .prn sennosides [Black-Draught Lax-Senna] 8.6 mg tablet 8.6 mg PO .prn cholecalciferol (vitamin D3) 50 mcg (2,000 unit) capsule 2,000 unit PO DAILY Discharge Orders: Discharge Order (Routine); Ordered 10/23/24 Ordered By: Naila Weston Patient Education: Bowel Obstruction (DC) Additional Instructions: 1. Slow return to regular eating; smaller more frequent meals 2. No further antibiotics needed for the UTI 3. Your potassium has improved nicely; just eating more normally and no further vomiting or gastric suction will keep this looking good without supplementation. Dr. Whittaker can check it at follow-up. 4. You had some mild liver inflammation with this small-bowel obstruction. Again no further treatment, Dr. Whittaker can check this at follow-up. Activity Level: Activity as Tolerated Discharge Diet: High Fiber Follow Up Appointments: Vishnu Whittaker MD [Primary Care Provider, Family Practice] - 10/31/24 3:20 pm Referral Note: [facility] for hospital follow-up. Forms: Lydia Info Instructions
--- NOTE | 2024-10-23 12:51 | PC.NURSE ---
Discharge: Patient pleasant and cooperative. Patient vitally stable, lungs clear, BS WNL, IV removed, catheter intact. Patient denies abdominal pain and nausea. Patient is passing gas, urinating well, and tolerating regular diet. Patient also continues to walk the halls. Patient signed belongings sheet and discharge form. Patient's questions regarding discharge education were answered. Patient left the floor by wheelchair to home with belongings and at 1112.
--- NOTE | 2024-12-06 10:25 | PC.NURSE ---
called regarding her advance care directive from a month ago. I forwarded the call to forensic social worker to discuss further as not sure what her code status was when she was hospitalized a month or so ago.
== END 2024-10-23 11:12 | disposition home or self-care (01) | DRG 389 ==
LOC: ED 21:44 → MEDSURG 23:24
PROVIDERS: Family Medicine; Admitting Provider Student in an Organized Health Care Education/Training Program; Emergency Provider Emergency Medicine; PCP Family Medicine; Visit Provider Student in an Organized Health Care Education/Training Program
DX: K56.609 Unspecified intestinal obstruction, unspecified as to partial versus complete obstruction (principal); N39.0 Urinary tract infection, site not specified; B96.20 Unspecified Escherichia coli [E. coli] as the cause of diseases classified elsewhere; E87.6 Hypokalemia; K59.9 Functional intestinal disorder, unspecified; R19.5 Other fecal abnormalities; I10 Essential (primary) hypertension; K21.9 Gastro-esophageal reflux disease without esophagitis; R74.01 Elevation of levels of liver transaminase levels; E78.5 Hyperlipidemia, unspecified
CPT/HCPCS: 43752; 36415; 71045; 74018; 74177; 80048; 80053; 80069; 80076; 81001; 81003; 82565; 82977; 83605; 83690; 83735; 83986; 84132; 85025; 85027; 86140; 87086; 97161; 97165; 97535; 99283; 99284; 99285; A9270; G0378; J0696; J0780; J1171; J1885; J2060; J2270; J2405; J2470; J3480; J7030; J7050; J7120; Q9967

== ENCOUNTER 2024-11-08 14:52 | Emergency (ER) | payer MEDICARE, OTHER, SELFPAY ==
--- OUTSIDE RECORDS SUMMARY | 2024-11-08 14:55 | XMS_ITS | Clinical Summary ---
Author Organization [employer] [facility] Address [address] [place] [id number] Care Team Providers Care Wrapping Machine Tender Name Role Phone Vishnu Whittaker MD Primary Care Provider Allergies Active Allergy Reactions Criticality Noted Date Comments Lisinopril Cough 11/24/2006 Rosuvastatin Myalgia 11/01/2024 Cramps Medications calcium carbonate-vitamin D3, 600 mg-400 unit, [...] A DAY 180 Capsule 3 5 Active triamterene-hydroch lorothiazide, 37.5-25 mg, [...] Encounters Date Type Department Care Team Description 11/01/2024 Orders Only [facility] [place] [address] [place] [address] Vishnu Whittaker MD <No scans attached> 10/31/2024 3:20 PM CDT Office Visit [facility] [place] [address] [place] [address] Vishnu Whittaker MD Hospital F/U ([facility], 10/19/2024 - 10/23/2024, small bowel obstruction ) 10/31/2024 Travel 10/27/2024 Travel 10/20/2024 Orders Only [facility] Scanner 1 scan: (1-Ord) [facility], CHEST 1V PORTABLE, 10/20/2024 10/19/2024 Orders Only [facility] Scanner 1 scan: (1-Ord) [facility], XR ABDOMEN 1V, 10/19/2024 10/19/2024 Orders Only [facility] Scanner 1 scan: (1-Ord) [place], ABD/PELVIS W CON, 10/19/2024 08/31/2024 10:55 AM CDT Office Visit [facility] [place] [address] [place] [address] Vishnu Whittaker MD Preoperative Exam (DOS: 09/27/2024, bilateral eyelid surgery, Dr. Emerson, [facility]) 08/31/2024 Travel 08/26/2024 Travel 08/25/2024 11:15 AM CDT Orders Only [facility] [place] [address] [place] [address] Lab, [facility] 08/25/2024 Travel 08/20/2024 Travel 08/11/2024 8:05 AM CDT Office Visit [facility] [place] [address] [place] [address] Vishnu Whittaker MD Leg Swelling (Bilateral lower leg swelling and stinging, got worse about a week ago) 08/10/2024 Travel from Last 3 Months Immunizations Immunization Administration Dates Next Due AMB Influenza, IIV3 (Age >=3 years)(Flu Clinic Only) 12/17/2011,01/06/2011,01/16/2010,01/01,01/19/2008 AMB Influenza, IIV4 PF (=>6 mos Flulaval,Fluzone Fluarix)(Flu Clinic Only) 12/20/2019,01/03/2016 COVID-19 VACCINE SPIKEVAX (M ODERNA 50MCG/0.5ML) 12YO+ PFS 04/20/2023 COVID-19 vaccine (AheadBio NTech 30mcg/0.3mL) 12YO+ BIVALENT PF, MDV 12/25/2021 [...] Given: No Alcohol Use Standard Drinks/Week Comments Not Currently 0 (1 standard drink = 0.6 oz [...] Sex Assigned at Female 03/10/2020 9:02 AM [facility]IA Legal Sex Female 6:29 AM RHIA Gender Identity Female 03/10/2020 9:02 AM [facility]IA Sexual Orientation Straight 03/10/2020 9: 02 AM RHIA Occupation Industry Job Start Date Job End [...] Sign Reading Time Taken Comments Blood Pressure 136/63 10/31/2024 3:11 PM CDT Pulse 62 10/31/2024 3:11 PM CDT Temperature 36.9 C (98.4 F) 01/02/2020 7:59 AM CDT Respiratory Rate 20 12/20/2019 12:5 0 PM CDT Oxygen Saturation 100% 10/31/2024 3:11 PM CDT Inhaled Oxygen Concentration - - Weight 69.8 kg (153 lb 12.8 oz) 10/31/2024 3:11 PM CDT Height 153 cm (5' 0.24) 08/31/2024 10: 47 AM CDT Body Mass Index 29.8 08/31/2024 10:47 AM CDT Plan of Treatment [...] Associated Diagnosis Comments BASIC METABOLIC PANEL Routine 10/31/2024 3:51 PM CDT Hypokalemia HEPATIC FUNCTION PANEL Routine 3:51 PM CDT Abnormal LFTs LIPID PANEL W REFLEX MEASURED LDL Routine 10/31/2024 3:51 PM CDT Mixed hyperlipidemia SCAN-RADIOLOGY REPORT 10/20/2024 12:00 AM CDT SCAN-RADIOLOGY REPORT 10/19/2024 12:00 AM CDT SCAN-CT INTERPRETATION 12:00 AM CDT BASIC METABOLIC PANEL Routine 08/25/2024 11:10 AM CDT Essential hypertension XR DXA BONE DENSITY 1 SITE AXIAL AND 1 SITE PERIPHERAL Routine 05/19/2024 9:10 AM RHIA Asymptomatic postmenopausal state ANTI HCV Routine 04/07/2017 1:24 PM RHIA Need for hepatitis C screening test from Last 3 Months or Most Recently Relevant to Health Maintenance Results * (ABNORMAL) LIPID PANEL W REFLEX MEASURED LDL (10/31/2024 3:51 PM CDT) CHOLESTEROL, TOTAL 238(H) <200 mg/dL [facility] HDL CHOLESTEROL 74 > OR = 50 mg/dL [facility] TRIGLYCERIDES 99 <150 mg/dL [facility] LDL-CHOLESTEROL 143(H) mg/dL (calc) [facility] Comment: Reference range: <100 Desirable range <100 mg/dL for primary prevention; <70 mg/dL for patients with CHD or diabetic patients with > or = 2 CHD risk factors. LDL-C is now calculated using the Federico calculation, which is a validated novel method providing better accuracy than the Friedewald equation in the estimation of LDL-C. Kenny MAHONEY et al. RORY. 2013;310(19): 1970-8767 (http://education.[employer]/faq/WFV444) CHOL/HDLC RATIO 3.2 <5.0 (calc) [facility] NON HDL CHOLESTEROL 164(H) <130 mg/dL (calc) [facility] Comment: For patients with diabetes plus 1 major ASCVD risk factor, treating to a non-HDL-C goal of <100 mg/dL (LDL-C of <70 mg/dL) is considered a therapeutic option. Blood BLOOD SPECIMEN / Unknown 10/31/2024 3:51 PM CDT 10/31/2024 3:51 PM CDT us Vishnu Whittaker MD CHEMISTRY Final Result [facility] [address] [place] [address], [facility] [address] [place] [address] * (ABNORMAL) HEPATIC FUNCTION PANEL (10/31/2024 3:51 PM CDT) PROTEIN, TOTAL 7.3 6.1 - 8.1 g/dL [facility] ALBUMIN 4.7 3.6 - 5.1 g/dL [facility] GLOBULIN 2.6 1.9 - 3.7 g/dL (calc) [facility] ALBUMIN/GLOBULIN RATIO 1.8 1.0 - 2.5 (calc) [facility] BILIRUBIN, TOTAL 0.8 0.2 - 1.2 mg/dL [facility] BILIRUBIN, DIRECT 0.1 < OR = 0.2 mg/dL [facility] BILIRUBIN, INDIRECT 0.7 0.2 - 1.2 mg/dL (calc) [facility] ALKALINE PHOSPHATASE 201(H) 37 - 153 U/L [facility] AST 39(H) 10 - 35 U/L [facility] ALT 39(H) 6 - 29 U/L [facility] Blood BLOOD SPECIMEN / Unknown 10/31/2024 3:51 PM CDT 10/31/2024 3:51 PM CDT us Vishnu Whittaker MD CHEMISTRY Final Result [facility] [address] [place] [address], [facility] [address] * BASIC METABOLIC PANEL (10/31/2024 3:51 PM CDT) Only the most recent of2 resultswithin the time period is included. [facility] GLUCOSE 84 65 - 99 mg/dL [facility] Comment: Fasting reference interval UREA NITROGEN (BUN) 12 7 - 25 mg/dL [facility] CREATININE 0.75 0.60 - 1.00 mg/dL [facility] EGFR 81 > OR = 60 mL/min/1. 73m2 [facility] BUN/CREATININE RATIO SEE NOTE: 6 - 22 (calc) [facility] Comment: Not Reported: BUN and Creatinine are within reference range. SODIUM 136 135 - 146 mmol/L [facility] POTASSIUM 4.4 3.5 - 5.3 mmol/L [facility] CHLORIDE 102 98 - 110 mmol/L [facility] CARBON DIOXIDE 25 20 - 32 mmol/L [facility] ELECTROLYTE BALANCE 9 7 - 17 mmol/L (calc) [facility] CALCIUM 10.2 8.6 - 10.4 mg/dL [facility] Blood BLOOD SPECIMEN / Unknown 10/31/2024 3:51 PM CDT 10/31/2024 3:51 PM CDT us Vishnu Whittaker MD CHEMISTRY Final Result Performing Organization Address City/[facility]/ZIP Co de Phone Number [facility] [address] [place] [phone], [facility] [address] [place] [address] * SCAN-RADIOLOGY REPORT (10/20/2024 12:00 AM CDT) Only the most recent of2 resultswithin the time period is included. Anatomical Region Laterality Modality Other us Scanner OTHER Final Result * SCAN-CT INTERPRETATION (10/19/2024 12:00 AM CDT) Anatomical Region Laterality Modality Other us Scanner OTHER Final Result * (ABNORMAL) XR DXA BONE DENSITY 1 SITE AXIAL AND 1 SITE PERIPHERAL (05/19/2024 9:10 AM RHIA) Anatomical Region Laterality Modality LUMBAR SPINE Other Impressions 05/24/2024 2:25 PM [facility]IA Osteoporosis. RECOMMENDATIONS: The National Osteoporosis Foundation recommends [...] to assess therapeutic efficacy. Nicolasa Eisenberg PA-C [facility] 05/24/2024 Narrative 05/24/2024 2:25 PM [facility]IA For Patients: Results are automatically released to your [facility] ([employer]) account once available, in compliance with federal regulations. This means that you may see your results before your provider has had a chance to review them. Please allow 2-3 business days for your provider to comment on the results. XR DXA Bone Mineral Density (BMD) EXAM LOCATION: [address] [address] PATIENT NAME: Radha Kelly DATE OF : [...] two scanners are made by the same jig worker. PROCEDURE: Dual-energy x-ray absorptiometry performed with routine [...] MD DEXA Final Result * ANTI HCV [73925.2] (04/07/2017 1:24 PM [facility]IA) HEPATITIS C ANTIBODY Non-Reacti ve Non-Reacti ve 04/07/2017 8:06 PM [facility] Blood BLOOD SPECIMEN / Unknown Venipuncture / Unknown 04/07/2017 1:24 PM [facility]IA 04/07/2017 1:24 PM [facility]IA Narrative [facility] - 04/07/2017 8:06 PM RHIA Antibodies to HCV not detected; does not exclude the possibility of exposure to HCV. Vishnu Whittaker MD SEND OUTS Final Result [facility] 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
--- OUTSIDE RECORDS SUMMARY | 2024-11-08 14:55 | XMS_ITS | Clinical Summary ---
Author Organization [facility] Address [address] [place] [address] Care Team Providers Care Non Food Receiving Clerk Name Role Phone Elsewhere, Pcp Primary Care Provider Unavailabl e Source Comments Patient records contain information from all sites at [facility]. For routine questions regarding patient records, call [phone] during business hours, M-F 8:00 AM - 5:00 PM Central Time. Record requests for emergency care only can be directed to [phone] at any time.[facility] Allergies Active Allergy Reactions Criticality Noted [...] your living situation today? I have a [facility] place to live 02/05/2023 Education Answer Date Recorded What is the highest level of school you have completed or the highest degree you have received? Associate degree: occupational, technical, or vocational program 01/07/2022 Comments No Sex and Gender Information Value Date Recorded Sex Assigned at Female 01/07/2022 9:56 AM CDT Legal Sex Female 9:22 AM [employer] CONSULTANT Gender Identity Female 01/07/2022 9:56 AM CDT Sexual Orientation Straight 01/07/2022 9: 56 AM CDT Last Filed Vital Signs Vital Sign Reading Time Taken Comments Blood Pressure 144/72 03/15/2023 1:10 PM DEVOPS CONSULTANT Pulse 85 03/15/2023 1:10 PM DEVOPS CONSULTANT Temperature 36.5 C (97.7 F) 03/15/2023 7:23 AM DEVOPS CONSULTANT Respiratory Rate 12 03/15/2023 1:10 PM DEVOPS CONSULTANT Oxygen Saturation 99% 03/15/2023 1:10 PM DEVOPS CONSULTANT Inhaled Oxygen Concentration - - Weight 70 kg (154 lb 5.2 oz) 03/15/2023 7:17 AM DEVOPS CONSULTANT Height 160 cm (5' 3) 01/19/2023 6:57 [...] age to complete this topic Insurance MEDICARE [facility] Care Teams Non Food Receiving Clerk Relationship Specialty Start Date End Date Elsewhere, Pcp PCP - General Internal Medicine 01/19/23
[2024-11-08 15:19] VITALS: BP 143/73; PULSE 74; RESP 18; TEMP 37; O2SAT 98; BMI 28.0
--- NOTE | 2024-11-08 16:21 | CRLHL7_ITS ---
For Patients: As a result of the Cures Act, medical imaging exams and procedure reports are released immediately into your electronic medical record. You may view this report before your referring provider. If you have questions, please contact your health care provider. Indication: Trauma, fall with pain. Technique: Sacrum and coccyx 3 views. Comparison: None. Findings/Impression: Bones: Alignment is normal. Subtle angulation of the anterior cortex in the S3 segment on the lateral image. AP inlet view demonstrates a questionable fracture of the left sacral ala. These potential fractures could be confirmed with CT. Joint spaces: Severe lumbar spine spondylosis. Soft tissues: Unremarkable. Dictated by Rene Nichole MD @ 11/08/2024 5:36:13 PM (Electronically Signed)
--- NOTE | 2024-11-08 16:21 | CRLHL7_ITS ---
For Patients: As a result of the Century Cures Act, medical imaging exams and procedure reports are released immediately into your electronic medical record. You may view this report before your referring provider. If you have questions, please contact your health care provider. INDICATION: Trauma, fall with pain. TECHNIQUE: Lumbar spine 3 view. COMPARISON: November 30, 2012. FINDINGS: Bones: Relatively severe scoliosis. No sign of fracture or suspicious bone lesion. No sign of acute injury. 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 Soft tissues: Dense aortic atherosclerosis. Dictated by Rene Nichole MD @ 11/08/2024 5:32:34 PM (Electronically Signed)
--- NOTE | 2024-11-08 16:22 | ED.FALL ---
HPI - Fall General Date Seen: 11/08/24 Chief Complaint: Fall/Minor Trauma Stated Complaint: hurt lower back after fall Time Seen by Provider: 11/08/24 15:59 Source: patient Mode of arrival: ambulatory Limitations: no limitations History of Present Illness HPI Narrative: Patient is a 79-year-old female presenting to the emergency department after a fall. She was using her riding lawnmower when she was mowing on the hill and she slid off the side of the lawn technician. States she was on the ground for only a couple minutes before her came to help her up. She is able to get into the house and has been able to take a few steps. Pain is rather minimal when she is at rest but is painful when she weight bears on the left side. She states pain seems mostly to be in the left gluteal region just lateral to the sacrum. States she did not hit her head. Denies any numbness or weakness. Denies saddle anesthesia, urinary incontinence or retention, bowel incontinence. No other concerns noted. Related Data Home Medications ?Medication ?Instructions ?Recorded ?Confirmed amlodipine 5 mg tablet 5 mg PO DAILY 03/10/22 10/19/24 omeprazole 20 mg capsule,delayed 20 mg PO DAILY 03/10/22 10/19/24 release potassium chloride 20 mEq 20 meq PO DAILY 03/10/22 10/19/24 tablet,extended release(part/cryst) propranolol 120 mg capsule,24 120 mg PO BID 03/10/22 10/19/24 hr,extended release rosuvastatin 40 mg tablet 40 mg PO DAILY 03/10/22 10/19/24 triamterene 37.5 1 cap PO DAILY 03/10/22 10/19/24 mg-hydrochlorothiazide 25 mg capsule calcium 600 mg (as 2 tab PO DAILY 10/19/24 10/19/24 carbonate)-vitamin D3 10 mcg (400 unit) tablet (Calcium 600 + D(3)) cholecalciferol (vitamin D3) 50 2,000 unit PO DAILY 10/19/24 10/19/24 mcg (2,000 unit) capsule lidocaine 5 % topical patch 1 patch topical .prn 10/19/24 10/19/24 olmesartan 20 mg tablet 20 mg PO DAILY 10/19/24 10/19/24 ondansetron HCl 4 mg tablet 4 mg PO .prn 10/19/24 10/19/24 sennosides 8.6 mg tablet 8.6 mg PO .prn 10/19/24 10/19/24 (Black-Draught Lax-Senna) Allergies Allergy/AdvReac Type Severity Reaction Status Date / Time lisinopril Allergy Mild Cough Verified 11/08/24 15:19 Review of Systems Narrative: Pertinent systems reviewed and were negative unless stated in HPI PFSH PFSH Medical History Septic arthritis of interphalangeal joint of finger ?M00.9 - Pyogenic arthritis, unspecified (ICD-10) Small bowel obstruction ?K56.609 - Unspecified intestinal obstruction, unspecified as to partial versus complete obstruction (ICD-10) Hyperlipidemia ?E78.5 - Hyperlipidemia, unspecified (ICD-10) GERD (gastroesophageal reflux disease) ?K21.9 - Gastro-esophageal reflux disease without esophagitis (ICD-10) Hypertension ?I10 - Essential (primary) hypertension (ICD-10) Surgical History Status post bilateral salpingo-oophorectomy ?Z90.722 - Acquired absence of ovaries, bilateral (ICD-10) Status post vaginal hysterectomy ?Z90.710 - Acquired absence of both cervix and uterus (ICD-10) Status post laparoscopic cholecystectomy ?Z90.49 - Acquired absence of other specified parts of digestive tract (ICD-10) Family History Mother Colon cancer Breast cancer High blood pressure Stroke Brother Colon cancer High blood pressure Leukemia Father Stroke Social History Narrative: She lives with her and [facility]. 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 Occasionally drinks alcohol What is your current living situation?: I presently have a place to live Problems where you live: no known problems Problems where you live details: n/a In the past 12 months, utilities in danger of being shut off: no In past 12 months, lack of transportation kept you from medical appts, meetings, work, or getting things needed for daily living: no In the past 12 mos, have been you worried that your food would run out before you had money to buy more?: never true In the past 12 mos, the food you bought just didn't last and you didn't have money to buy more?: never true Highest level of school completed/degree received: Bachelor's degree Smoking Status: Never smoker Do you use any of these nicotine containing products: None How often do you have a drink containing alcohol: 2-4 times a month How many standard drinks containing alcohol do you have on a typical day: 1 or 2 How often do you have six or more drinks on one occasion: Never AUDIT-C Alcohol total score: 2 Non-prescribed substance use: denies use Caffeine: Yes (rarely) How often does anyone, including family, friends and others, physically hurt you: never How often does anyone, including family, friends and others, insult or talk down to you: never How often does anyone, including family, friends and others, threaten you with harm: never How often does anyone, including family, friends and others, scream or curse at you: never service: No Exam Narrative: Exam Narrative: Const: Well-nourished, Well-developed, in mild distress Eyes: PERRL, no conjunctival injection, and symmetrical lids HENT: Atraumatic external nose and ears. Moist mucous membranes. MSK:Extremities w/o deformity, Normal Active ROM, tenderness in the gluteal region just lateral to the mid sacral region. Skin: Warm, Dry. No rashes or lesions. No obvious bruising Neuro: Normal Muscle tone, No focal neurological deficits. Psych: Awake, Alert, & Oriented x3. Appropriate mood and affect. Const: Vital Signs, click to edit/add: Vital Signs - 24 hr 11/08/24 15:19 11/08/24 17:16 Temperature 98.6 F Pulse Rate 74 Pulse Rate [Pulse Oximeter] 74 Respiratory Rate 18 14 Blood Pressure 167/73 H Blood Pressure [Ri ght Upper Arm] 143/73 H Pulse Oximetry 98 100 Oxygen Delivery Me thod Room Air Room Air Course Vital Signs Vital signs: Initial Vital Signs Temperature 98.6 F 11/08/24 15:19 Temperature Source Temporal Artery Scan 11/08/24 15:19 Pulse Rate 74 11/08/24 15:19 Respiratory Rate 18 11/08/24 15:19 Blood Pressure 143/73 H 11/08/24 15:19 Blood Pressure Mean 96 11/08/24 15:19 Pulse Oximetry 98 11/08/24 15:19 Oxygen Delivery Method Room Air 11/08/24 15:19 Vital Signs Temperature 98.6 F 11/08/24 15:19 Pulse Rate 74 11/08/24 15:19 Respiratory Rate 18 11/08/24 15:19 Blood Pressure 143/73 H 11/08/24 15:19 Pulse Oximetry 98 11/08/24 15:19 Oxygen Delivery Method Room Air 11/08/24 15:19 Temperature 98.6 F 11/08/24 15:19 Pulse Rate 74 11/08/24 17:16 Respiratory Rate 14 11/08/24 17:16 Blood Pressure 167/73 H 11/08/24 17:16 Pulse Oximetry 100 11/08/24 17:16 Oxygen Delivery Method Room Air 11/08/24 17:16 Medications Administered Medications: Discontinued Medications Generic Name Dose Route Start Last Admin Trade Name Nathanielq PRN Reason Stop Dose Admin Ondansetron HCl 4 mg 11/08/24 18:09 11/08/24 18:13 Ondansetron Odt 4 Mg Tab PO 11/08/24 18:10 4 mg ONCE ONE Administration Oxycodone HCl 5 mg 11/08/24 17:20 11/08/24 17:31 Oxycodone 5 Mg Tablet PO 11/08/24 17:21 5 mg ONCE ONE Administration MDM - Fall MDM Narrative Medical decision making narrative: Patient is a 79-year-old female presenting to the emergency department after a fall. No red flag symptoms for cauda equina. No focal neurological deficits. Is able to get up and ambulate but with pain. Will do x-rays of the lumbar spine and sacrum to look for fracture. X-rays returned showing a possible fracture of the sacrum. Recommended CT scan for better evaluation. She was beginning to have pain after the x-rays as she had to get up move around so oxycodone was given. Zofran given for nausea after the oxycodone. CT scan returned showing acute fracture of the anterior cortex of S3 vertebral body and a probable nondisplaced fracture of the left iliac wing. I have impressed on the iliac wing and she was tender there but is also tender on the right side and states she is always tender there. Hard to say if there is actually an acute fracture or not. Based on my resurgence is not appear to require surgery. I did speak to Ortho who states as far as they are aware she should be safe to discharge. Patient would like to go home. Will discharge the patient to follow up with the back and spine clinic. Will discharge to pain medication. She is safe for discharge. Imaging Data Lumbar spine x-ray : Attestation: I have reviewed the pertinent imaging results. Radiologist's impression: Bones: Relatively severe scoliosis. No sign of fracture or suspicious bone lesion. No sign of acute injury. 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 Soft tissues: Dense aortic atherosclerosis. Dictated by Rene Nichole MD @ 11/08/2024 5:32:34 PM Sacrum and coccyx x-ray: Attestation: I have reviewed the pertinent imaging results. Radiologist's impression: Bones: Alignment is normal. Subtle angulation of the anterior cortex in the S3 segment on the lateral image. AP inlet view demonstrates a questionable fracture of the left sacral ala. These potential fractures could be confirmed with CT. Joint spaces: Severe lumbar spine spondylosis. Soft tissues: Unremarkable. Dictated by Rene Nichole MD @ 11/08/2024 5:36:[address] scan: Attestation: I have reviewed the pertinent imaging results. Radiologist's impression: 1. Acute fracture of the anterior cortex of the S3 vertebral body. 2. Probable nondisplaced fracture of the left iliac wing. Recommend correlation with site for focal tenderness. Please note that all CT scans at this facility use dose modulation, iterative reconstruction, and/or weight-based dosing when appropriate to reduce radiation dose to as low as reasonably achievable. Dictated by Billy Sosa MD @ 11/08/2024 6:32:01 PM Discharge Plan Discharge Clinical Impression: Closed sacral fracture Qualifiers: Encounter type: initial encounter Zone of sacrum fracture: unspecified portion of sacrum Qualified Code(s): S32.10XA - Unspecified fracture of sacrum, initial encounter for closed fracture Patient Disposition: Home, Self-Care Condition: Stable Instructions: Sacral Fracture (ED) Additional Instructions: You do have a fracture to the anterior portion the S3 sacrum. If you developed urinary incontinence, urinary retention, saddle anesthesia or any other neurological abnormalities please return immediately for evaluation. Recommend close follow-up with her primary care provider and possible follow-up with the [facility] neck/back/spine clinic. [place] provided via instymeds. This may cause some nausea so take it with Zofran if needed. It does have Tylenol in it. Prescriptions: No Action rosuvastatin 40 mg tablet 40 mg PO DAILY triamterene-hydrochlorothiazid 37.5-25 mg capsule 1 cap PO DAILY propranolol 120 mg capsule,extended release 24 hr 120 mg PO BID potassium chloride 20 mEq tablet,ER particles/crystals 20 meq PO DAILY amlodipine 5 mg tablet 5 mg PO DAILY omeprazole 20 mg capsule,delayed release(DR/EC) 20 mg PO DAILY calcium carbonate-vitamin D3 [Calcium 600 + D(3)] 600 mg-10 mcg (400 unit) tablet 2 tab PO DAILY lidocaine 5 % adhesive patch,medicated 1 patch topical .prn Rx Instructions: leave on most painful area for up to 12 hrs olmesartan 20 mg tablet 20 mg PO DAILY ondansetron HCl 4 mg tablet 4 mg PO .prn sennosides [Black-Draught Lax-Senna] 8.6 mg tablet 8.6 mg PO .prn cholecalciferol (vitamin D3) 50 mcg (2,000 unit) capsule 2,000 unit PO DAILY Follow Up/Referrals: Vishnu Whittaker MD [Primary Care Provider, Family Practice] Stand Alone Forms: Execth Info Instructions
[2024-11-08 17:16] VITALS: BP 167/73; PULSE 74; RESP 14; O2SAT 100
--- NOTE | 2024-11-08 17:41 | CRLHL7_ITS ---
For Patients: As a result of the Century Cures Act, medical imaging exams and procedure reports are released immediately into your electronic medical record. You may view this report before your referring provider. If you have questions, please contact your health care provider. INDICATION: Concern for sacral fracture. TECHNIQUE: CT pelvis without contrast. COMPARISON: None. FINDINGS: Acute fracture of the anterior cortex of the S3 vertebral body. Probable nondisplaced fracture of the left iliac wing (3/138). Degenerative changes of the pubic symphysis, bilateral hip joints, and lower lumbar spine. No aggressive osseous lesion. Moderate atherosclerotic disease. Partially imaged right renal cyst. No free fluid in the pelvis. Status post hysterectomy. IMPRESSION: 1. Acute fracture of the anterior cortex of the S3 vertebral body. 2. Probable nondisplaced fracture of the left iliac wing. Recommend correlation with site for focal tenderness. Please note that all CT scans at this facility use dose modulation, iterative reconstruction, and/or weight-based dosing when appropriate to reduce radiation dose to as low as reasonably achievable. Dictated by Billy Sosa MD @ 11/08/2024 6:32:01 PM (Electronically Signed)
[2024-11-08] MEDS: ONDANSETRON ODT 4 MG TAB PO (18:13)
== END 2024-11-08 19:22 | disposition home or self-care (01) ==
PROVIDERS: Emergency Provider Student in an Organized Health Care Education/Training Program; PCP Family Medicine
DX: S32.10XA Unspecified fracture of sacrum, initial encounter for closed fracture (principal); M54.50 Low back pain, unspecified; W30.89XA Contact with other specified agricultural machinery, initial encounter; Y93.H2 Activity, gardening and landscaping
CPT/HCPCS: 72100; 72192; 72220; 99284; 99285; A9270

== ENCOUNTER 2025-03-08 08:00 | Outpatient (RCR) | payer MEDICARE, OTHER, SELFPAY | END 2025-03-08 09:04 | disposition home or self-care (01) | PROVIDERS: PCP Family Medicine; Visit Provider Family Medicine | DX: S32.110D Nondisplaced Zone I fracture of sacrum, subsequent encounter for fracture with routine healing (principal); Z51.89 Encounter for other specified aftercare | CPT/HCPCS: 97110; 97112; 97140; 97161; 97535 ==